=== PATIENT | male | born 1950 | race Caucasian/White ===

== ENCOUNTER 2020-08-17 16:51 | Inpatient (IN) | payer MEDICARE, MEDICAID, SELFPAY ==
[2020-08-17] VITALS (14 sets, daily range): BP systolic 116–214; BP diastolic 68–122; PULSE 83–130; RESP 18–30; TEMP 37.1–37.7; O2SAT 93–100; BMI 22.7; BMI 22.9
--- NOTE | 2020-08-17 | ECG_ITS ---
Test Reason : Hypotension Blood Pressure : / mmHG Vent. Rate : 074 BPM Atrial Rate : 074 BPM P-R Int : 152 ms QRS Dur : 094 ms QT Int : 468 ms P-R-T Axes : 029 004 101 degrees QTc Int : 519 ms Normal sinus rhythm ST & T wave abnormality, consider anterolateral ischemia Prolonged QT Abnormal ECG When compared with ECG of [id number] Normal sinus rhythm has replaced Wide QRS tachycardia ST depression in Inferior leads Lateral leads is new Referred By: Joel Hanson Electronically Signed By:DOMINGA DELGADO MD
--- NOTE | 2020-08-17 17:16 | XR_ITS ---
EXAMINATION: XR CHEST CLINICAL INFORMATION: Pulmonary edema, hypoxia and missed dialysis COMPARISON: CT chest 06/13/2020 TECHNIQUE: Frontal view of the chest was obtained. FINDINGS: The lungs are expanded with diffuse increased vascular markings. No focal consolidation seen. Suspect bilateral small pleural effusions. Heart size is mildly enlarged. There are several right subclavian and axillary stents. No gross bony abnormality seen. XR/XR chest 1V IMPRESSION: Cardiomegaly with diffuse increased vascularity likely moderate pulmonary vascular congestion. Interstitial pneumonitis is not excluded.
[2020-08-17 17:49] LABS: MANUAL DIFF FLAG NO
[2020-08-17 17:53] LABS: Basophils Percent Auto 0.5 % (0-2); Eosinophils Percent Auto 0.3 % (0-4); Hematocrit 36.4 % (42-52); Imm Gran Abs Auto 0.01 X10*3/uL (0.00-0.03); Imm Gran Pct Auto 0.1 % (0.0-0.4); Lymphocytes Percent Auto 13.6 % (20-40); Mean Corpuscular Hemoglobin 31.1 pg (27.0-33.0); Mean Corpuscular Volume 94.3 fL (80-98); Monocytes Absolute Auto 0.3 X10*3/uL (0.1-1.2); Monocytes Percent Auto 3.7 % (2-11); Neutrophils Absolute Auto 6.3 X10*3/uL (2.0-8.3); Neutrophils Percent Auto 81.8 % (45-73); Platelet Count 153 X10*3/uL (160-400); Red Blood Count 3.86 X10*6/uL (4.60-5.80); Red Cell Distribution Width 13.2 % (11.0-16.0); White Blood Count 7.7 X10*3/uL (4.8-10.8)
[2020-08-17] MEDS: Nitroglycerin 2 % Oint 1 GM Packet 1 INCH TRANSDERMA (18:25)
[2020-08-17 18:31] LABS: Troponin-I High Sensitivity 78.4 ng/L (<3.5-35.0)
[2020-08-17 18:36] LABS: Lactic Acid 2.5 mmol/L (0.5-2.0)
--- NOTE | 2020-08-17 18:49 | PC.NURSE ---
report taken from zo kearney. nitrodrip titrated to 40mcg at this time. bp 191/110 MAP 130.
--- NOTE | 2020-08-17 19:07 | PC.NURSE ---
nitro drip increased to 60mcg/min with map 134 per protocol. covid swab obtained. plan at this time to await bedassignement to send to dialysis
[2020-08-17 19:58] LABS: Alanine Aminotransferase 39 U/L (0-40); Albumin Level 3.8 g/dL (3.5-5.0); Alkaline Phosphatase 214 U/L (39-117); Anion Gap 32 (12-20); Aspartate Amino Transferase 38 U/L (5-37); Bilirubin Direct 0.7 mg/dL (0.0-0.5); Bilirubin Total 1.2 mg/dL (0.0-1.0); Blood Urea Nitrogen 116 mg/dL (9-16); Calcium 8.9 mg/dL (8.4-10.2); Carbon Dioxide 21 mmol/L (22-29); Chloride 97 mmol/L (96-108); Creatinine Clr Calc Pharmacy 5.4; Estimated Glomerular Filt Rate 4; Glucose Random 73 mg/dL (60-115); Potassium 7.1 mmol/l (3.3-5.1); Sodium 143 mmol/L (135-145); Total Protein 7.2 g/dL (6.5-8.0)
--- NOTE | 2020-08-17 20:10 | PC.NURSE ---
room assignment 254, contact make to re[facility] dialysis nurse [phone]
[2020-08-17 20:19] LABS: COVID-19 Test Negative (Negative); IDNOW Serial# 9DD0AD1C
[2020-08-17 20:19] LABS: Reflex Lactate? Lactic Acid Added
--- NOTE | 2020-08-17 20:35 | ED.GENADULT ---
HPI - General Adult General Chief complaint: Abdominal Pain Stated complaint: missed dialysis, not feeling well, fever Time Seen by Provider: 08/17/20 17:05 Source: EMS Mode of arrival: EMS Limitations: other ( shortness of breath) History of Present Illness HPI narrative: patient came to emergency room for shortness of breath and altered mental status. Patient was unable to give any history. I discussed the patient with her healthcare proxy who is a friend, states that the patient's skip dialysis on Tuesday, states that every time he skips dialysis he gets short of breath and encephalopathic. complaint: Pulmonary edema Related Data Allergies Allergy/AdvReac Type Severity Reaction Status Date / Time No Known Allergies Allergy Mild NA Unverified 06/05/20 16:52 ibuprofen Allergy Unknown Verified 04/04/20 00:00 Review of Systems Review of Systems: Yes Unobtainable due to mental condition PMFSH Past Medical History Medical History Cholelithiasis End stage renal disease Hypercholesteremia Thoracotomy scar of right chest Surgical History S/P thoracotomy Social History Social History (Updated 08/17/20 @ 21:34 by Joel Hanson) Alcohol intake: never Smoking Status: Current every day smoker Packs Per Day: 1 Physical Exam Vital Signs: Vital Signs: Last Vital Signs Temp 98.3 F 08/18/20 00:00 Pulse 88 08/18/20 01:00 Resp 17 08/18/20 01:00 BP 173/89 H 08/18/20 01:00 Pulse Ox 93 08/18/20 01:00 Body Mass Index 22.9 Appearance: awake, in moderate distress, encephalopathic, limited answers Eyes: Pupils equal, round and reactive to light. ENT: Pharynx normal. Neck: Normal inspection. Neck supple. No lymph nodes noted. No crepitus CVS: Normal heart rate and rhythm. Pulses normal. Normal S1 and S2, positive JVD right-sided Respiratory: patient has moderate respiratory distress, oxygen saturation 79% on room air Abdomen: Soft and nontender. No rigidity. No distention. good BS x4 Skin: Skin warm and dry. Extremities: +2 pitting edema No Rash Neuro: Oriented X 2. No motor deficit. No sensory deficit. Moving all extermities. Course Course Course Narrative: patient skip dialysis, patient is encephalopathic, has shortness of breath. Patient was given nitro paste and put in a nitro drip to control the blood pressure which was initially 214/122. Before getting any labs I discussed the patient with Nephrology on-call for Dr. Montez, at dialysis nurse will be coming to the hospital to start dialysis once the patient has a bed assignment. Patient was admitted to the intensive care unit by Dr. lucas neville given that he is still on BiPAP and has severe hypertension. Patient was put on BiPAP, patient's oxygen saturation 100%, blood pressure improved to 116/68. Patient breathing comfortably on BiPAP, heart rate 83. Medical Decision Making Lab Data Result diagrams: 08/17/20 17:41 08/17/20 19:04 Labs: Lab Results 08/17/20 08/17/20 08/17/20 Range/Units 17:41 17:41 17:41 WBC 7.7 (4.8-10.8) X10*3/uL RBC 3.86 L (4.60-5.80) X10*6/uL Hgb 12.0 L (14.0-18.0) g/dl Hct 36.4 L (42-52) % MCV 94.3 (80-98) fL MCH 31.1 (27.0-33.0) pg MCHC 33.0 (31.0-36.0) g/dl RDW 13.2 (11.0-16.0) % Plt Count 153 L (160-400) X10*3/uL MPV 12.0 (9.4-12.4) fL Immature Gran % (Auto) 0.1 (0.0-0.4) % Neut % (Auto) 81.8 H (45-73) % Lymph % (Auto) 13.6 L (20-40) % [place] % (Auto) 3.7 (2-11) % Eos % (Auto) 0.3 (0-4) % Baso % (Auto) 0.5 (0-2) % Lymph # (Auto) 1.0 L (1.2-4.9) X10*3/uL [place] # (Auto) 0.3 (0.1-1.2) X10*3/uL Eos # (Auto) 0.0 (0.0-0.4) X10*3/uL Baso # (Auto) 0.0 (0.0-0.2) X10*3/uL Abs Immat Gran (auto) 0.01 (0.00-0.03) X10*3/uL Absolute Neuts (auto) 6.3 (2.0-8.3) X10*3/uL Absolute Nucleated RBC 0.000 (0.0-0.012) X10*3/uL Nucleated RBC % (auto) 0.0 (0.0-0.2) /100WBC Sodium Cancelled Potassium Cancelled Chloride Cancelled Carbon Dioxide Cancelled Anion Gap Cancelled BUN Cancelled Creatinine Cancelled Estim Creat Clear Calc Cancelled Estimated GFR Cancelled Random Glucose Cancelled Lactic Acid (0.5-2.0) mmol/L Calcium Cancelled Total Bilirubin (0.0-1.0) mg/dL Direct Bilirubin (0.0-0.5) mg/dL AST (5-37) U/L ALT (0-40) U/L Alkaline Phosphatase (39-117) U/L Troponin I High Sens 78.4 H (<3.5-35.0) ng/L Total Protein (6.5-8.0) g/dL Albumin (3.5-5.0) g/dL COVID-19 (WILL) (Negative) COVID-19 Clin Com 08/17/20 08/17/20 08/17/20 Range/Units 18:14 19:04 19:04 WBC (4.8-10.8) X10*3/uL RBC (4.60-5.80) X10*6/uL Hgb (14.0-18.0) g/dl Hct (42-52) % MCV (80-98) fL MCH (27.0-33.0) pg MCHC (31.0-36.0) g/dl RDW (11.0-16.0) % Plt Count (160-400) X10*3/uL MPV (9.4-12.4) fL Immature Gran % (Auto) (0.0-0.4) % Neut % (Auto) (45-73) % Lymph % (Auto) (20-40) % [place] % (Auto) (2-11) % Eos % (Auto) (0-4) % Baso % (Auto) (0-2) % Lymph # (Auto) (1.2-4.9) X10*3/uL [place] # (Auto) (0.1-1.2) X10*3/uL Eos # (Auto) (0.0-0.4) X10*3/uL Baso # (Auto) (0.0-0.2) X10*3/uL Abs Immat Gran (auto) (0.00-0.03) X10*3/uL Absolute Neuts (auto) (2.0-8.3) X10*3/uL Absolute Nucleated RBC (0.0-0.012) X10*3/uL Nucleated RBC % (auto) (0.0-0.2) /100WBC Sodium 143 Potassium 7.1 H* Chloride 97 Carbon Dioxide 21 L Anion Gap 32 H BUN 116 H* Creatinine 11.29 H* Estim Creat Clear Calc 5.4 Estimated GFR 4 Random Glucose 73 Lactic Acid 2.5 H* (0.5-2.0) mmol/L Calcium 8.9 Total Bilirubin 1.2 H (0.0-1.0) mg/dL Direct Bilirubin 0.7 H (0.0-0.5) mg/dL AST 38 H (5-37) U/L ALT 39 (0-40) U/L Alkaline Phosphatase 214 H (39-117) U/L Troponin I High Sens (<3.5-35.0) ng/L Total Protein 7.2 (6.5-8.0) g/dL Albumin 3.8 (3.5-5.0) g/dL COVID-19 (WILL) Negative (Negative) COVID-19 Clin Com See Note ECG Data Attestation: I personally reviewed and interpreted this ECG as follows: ( heart rate 126, wide QRS tachycardia, nonspecific interventricular block, no ST segment depression or elevation) Critical Care Time Critical Care Time Total Critical Care Time: 90 Discharge Plan Discharge Clinical Impression: Acute lung edema CHF (congestive heart failure) Qualifiers: Heart failure type: other Qualified Code(s): I50.9 - Heart failure, unspecified Patient Disposition: Admitted As Inpatient Interventions: Admission Worksheet (ED) Last Done: 08/17/20 20:48 Discharge Date/Time: 08/17/20 21:00
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
[2020-08-17] MEDS: Nitroglycerin/D5W 100 MG/250 ML INFUS..BTL 9 MG IVCONT (21:20)
[2020-08-17 22:41] LABS: ~Lactic Acid-LAB USE ONLY 2.3 mmol/L (0.5-2.0)
[2020-08-17] MEDS: 0.9 % Sodium Chloride Flush 3 ML SYRINGE IVFLUSH (22:56)
[2020-08-18] VITALS (27 sets, daily range): BP systolic 115–204; BP diastolic 47–99; PULSE 65–89; RESP 12–25; TEMP 36.4–37.3; O2SAT 90–100; BMI 22.1
[2020-08-18 00:12] LABS: Reflex Lactate? 2 Y
[2020-08-18] MEDS: Piperacillin Sodium/Tazobactam 2.25 GM in 0.9 % Sodium Chloride 50 ML IV (00:21)
[2020-08-18] MEDS: Albumin Human 25 % 100 ML IV (00:21)
[2020-08-18] MEDS: Aspirin 300 MG SUPP.RECT PR (00:23)
[2020-08-18] MEDS: Phenylephrine HCL 20 MG in 0.9 % Sodium Chloride 250 ML 24.38 MG IVCONT (00:24)
[2020-08-18] MEDS: vancomycin HCL 1,000 MG in 0.9 % Sodium Chloride 250 ML 270 MG IV (00:43)
[2020-08-18 01:25] LABS: Anion Gap 32 (12-20); Blood Urea Nitrogen 46 mg/dL (9-16); Calcium 9.4 mg/dL (8.4-10.2); Carbon Dioxide 19 mmol/L (22-29); Chloride 94 mmol/L (96-108); Creatinine Clr Calc Pharmacy 11.3; Estimated Glomerular Filt Rate 11; Glucose Random 85 mg/dL (60-115); Potassium 4.2 mmol/l (3.3-5.1); Sodium 141 mmol/L (135-145); ~Lactic Acid-LAB USE ONLY 2.3 mmol/L (0.5-2.0)
[2020-08-18 01:26] LABS: Troponin-I High Sensitivity 258.4 ng/L (<3.5-35.0)
--- NOTE | 2020-08-18 03:25 | PC.NURSE ---
Patient BP dropped to 71/36 map 65 during dialysis, lethargic but waking to voices. Provider at bedside to assess. Orders for josh-synephrine, drip started at 0.05 mcg/kg/min, albumin, vanco and zosyn. EKG obtained, trop, BC and BMP drawn. Pt BP 155/86, map 108. Josh-synephrine drip off after 15 minutes. Pt BP continues to remain stable will continue to monitor.
[2020-08-18] MEDS: Heparin Sodium,Porcine 5,000 UNIT/ML VIAL 5000 UNIT SUBCUT (05:21)
--- NOTE | 2020-08-18 06:00 | ECG_ITS ---
Test Reason : Elevated trop Blood Pressure : / mmHG Vent. Rate : 090 BPM Atrial Rate : 090 BPM P-R Int : 178 ms QRS Dur : 088 ms QT Int : 438 ms P-R-T Axes : 065 -22 083 degrees QTc Int : 535 ms Sinus rhythm with Premature atrial complexes Nonspecific ST and T wave abnormality Abnormal ECG When compared with ECG of [id number] ST less depressed in Inferior leads Lateral leads Heart rate has increased Referred By: Joel Hanson Electronically Signed By:DOMINGA DELGADO MD
[2020-08-18 06:05] LABS: MANUAL DIFF FLAG NO
[2020-08-18 06:06] LABS: Basophils Percent Auto 0.1 % (0-2); Eosinophils Percent Auto 0.1 % (0-4); Hematocrit 34.9 % (42-52); Hemoglobin 11.7 g/dl (14.0-18.0); Imm Gran Abs Auto 0.03 X10*3/uL (0.00-0.03); Imm Gran Pct Auto 0.4 % (0.0-0.4); Lymphocytes Absolute Auto 0.8 X10*3/uL (1.2-4.9); Lymphocytes Percent Auto 11.5 % (20-40); Mean Corpuscular HGB Conc 33.5 g/dl (31.0-36.0); Mean Corpuscular Hemoglobin 31.4 pg (27.0-33.0); Mean Corpuscular Volume 93.6 fL (80-98); Monocytes Absolute Auto 0.4 X10*3/uL (0.1-1.2); Monocytes Percent Auto 6.2 % (2-11); Neutrophils Absolute Auto 5.5 X10*3/uL (2.0-8.3); Neutrophils Percent Auto 81.7 % (45-73); Platelet Count 131 X10*3/uL (160-400); Red Blood Count 3.73 X10*6/uL (4.60-5.80); Red Cell Distribution Width 13.2 % (11.0-16.0); White Blood Count 6.8 X10*3/uL (4.8-10.8)
[2020-08-18 06:37] LABS: Alanine Aminotransferase 40 U/L (0-40); Albumin Level 4.1 g/dL (3.5-5.0); Alkaline Phosphatase 189 U/L (39-117); Anion Gap 29 (12-20); Aspartate Amino Transferase 44 U/L (5-37); Bilirubin Total 1.6 mg/dL (0.0-1.0); Blood Urea Nitrogen 62 mg/dL (9-16); Calcium 9.2 mg/dL (8.4-10.2); Carbon Dioxide 24 mmol/L (22-29); Chloride 94 mmol/L (96-108); Creatinine Clr Calc Pharmacy 8.5; Estimated Glomerular Filt Rate 8; Glucose Random 84 mg/dL (60-115); Magnesium 2.5 mg/dL (1.6-2.6); Sodium 142 mmol/L (135-145); Total Protein 7.5 g/dL (6.5-8.0); Troponin-I High Sensitivity 478.1 ng/L (<3.5-35.0)
[2020-08-18 07:04] LABS: Base Excess VBG 0.6 mmol/L; HCO3 VBG 25 mmol/L; PCO2 VBG 39 mmhg; PO2 VBG 57 mmhg; pH VBG 7.43 (7.32-7.43)
[2020-08-18 07:05] LABS: Blood Gas Serial # 5414; Oxygen Saturation VBG 88.2 %
--- NOTE | 2020-08-18 07:48 | PC.NURSE ---
Pt pulling at bipap at 0700. Pt was taken off of the bipap mask and placed on NC. Sats are being maintained in the mid-high 90s on 2 liters of o2 via NC.
[2020-08-18 08:37] LABS: Glucose, Whole Blood 76 mg/dL (60-115)
--- NOTE | 2020-08-18 10:10 | MHC.CM.PN ---
pt lives alone, he has a freind and step son that can help him if he needs it. this will likely include a ride home at [place]. pt is active c HD at [facility], [facility] [place]. he uses a cane c ambulation and has a scooter. pt denies the need for vna at [place]. dc plan is home c previous svcs. cm to cont. to follow.
--- NOTE | 2020-08-18 10:34 | MHC.CLN ---
RECOMMEND 2GM NA LOW K+, LOW PHOS DIET PER RENAL
--- NOTE | 2020-08-18 10:37 | PM.PNNEP ---
Subjective Subjective Date of Service: 08/18/20 Physical Exam Vital Signs: Vital Signs: Last Vital Signs Temp 97.5 F 08/18/20 07:59 Pulse 79 08/18/20 09:59 Resp 19 08/18/20 09:59 BP 186/63 H 08/18/20 09:59 Pulse Ox 98 08/18/20 09:59 reports feeling slightly better this AM , post urgent HD 4 L fluid removed oral dry mucosa decreased BSs on bases s1s2 abd soft nt ext No edema, LUE +AVF thrill minor bleed noted neuro awake Body Mass Index 22.1 Assessment & Plan Assessment and plan (1) Pulmonary edema: Problem details: 4 l fluid removed overnight after urgent HD, will plan for HD today continue remove fluids as tolerated Status: Acute (2) End stage renal disease: Problem details: HD today as above Status: Acute (3) Hyperkalemia: Problem details: resolved, K 5 today, will plan for HD as above Status: Acute Assessment and Plan: we discussed issues related to compliance as he continues to cut down treatments at outpt unit, he missed tuesday, he reports feeling down could benefit from psych eval ?major depression and benefit from addition of antidepressant keep Low Na low K diet resume outpt antiHTN meds carvedilol 12.5 mg PO BID, clonidine 0.1 mg PO TID, compliance likely issue consider a clonidine patch TTS2 wean off IV NTG, use hydralazine 10 mg IV q4 hrs prn for SBP>170 HD today, local care of AVF Time Spent With Patient Time: Total time spent is greater than 50% in coordination of care (as documented) at patient's floor/unit and/or counseling patient:
--- NOTE | 2020-08-18 12:36 | CONS_ITS ---
DATE OF SERVICE: 08/18/2020 REASON FOR CONSULTATION: Evaluation of end-stage kidney disease. REQUESTING PHYSICIAN: ICU team. HISTORY OF PRESENT ILLNESS: Mr. 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 Prior to that, his treatment had lasted only an hour and a half and he has been a frequent flyer to the hospital as a result of missing his treatments in cutting down his dialysis therapy. He showed up last night to the hospital after having increased shortness of breath, confused with a blood pressure of 214/122. He was admitted for urgent dialysis treatment as his chest x-ray showed flash pulmonary edema. He was put on a BiPAP and was able to be dialyzed with resultant 4 L of fluid removed. His EKG had shown heart rate of 126 per minute with wide-complex QRS, nonspecific intraventricular block, no ST-T wave changes. His potassium level was 7.1. His hemoglobin is 12.0 with a normal white count. Today, he is breathing very comfortable. Denies any specific complaints and he is presently on an IV nitroglycerin drip. His blood pressures have stayed around 160 - 180. He has not started on his regular oral agents yet. PAST MEDICAL HISTORY: 1. ESRD. 2. Hypertensive disorder, type 2 diabetes mellitus. 3. Hyperphosphatemia. Iron deficiency. Hyperparathyroidism. Anemia. Gastroesophageal reflux disease. 4. Diabetic neuropathy. 5. History of seizure disorder. OUTPATIENT MEDICATIONS: Keppra 200 mg on Tuesday, , Tuesday after dialysis, lisinopril 40 mg daily, gabapentin 100 mg 2 tablets twice a day, Megace 1 teaspoon daily, Cilostazol 100 mg twice daily, sevelamer 4 tablets 3 times a day with meals, pantoprazole 40 mg daily, lorazepam 0.5 mg daily at bedtime, Nephrocaps 1 capsule daily, isosorbide 30 mg daily, carvedilol 12.5 mg twice a day, clonidine 0.1 mg 3 times a day, Eliquis 2.5 mg twice daily, and Flonase Allergy 2 sprays daily. ALLERGIES: IBUPROFEN. SOCIAL HISTORY: Lives at home with his daughter. Reports history of smoking cigarettes in average half a pack a day for the past 50 years. No alcohol intake. FAMILY HISTORY: Noncontributory. REVIEW OF SYSTEMS: Presently, he denies any nausea, vomiting, diarrhea, abdominal pain, melena, headache, visual changes. Denies chest pain. His shortness of breath has improved significantly. Denies any hallucinations. Denies any cough, hemoptysis, or sputum production. Denies any contact with high-risk COVID contacts. Rest of the 10-point review of systems negative. PHYSICAL EXAMINATION: GENERAL: On physical evaluation, he is alert. VITAL SIGNS: His blood pressure is 186/63, heart rate of 79 per minute, oxygen saturation is 98% on nasal cannula, 2 L nasal cannula. HEENT: Oral moist mucosa. NECK: Reveals no jugular venous distention. LUNGS: Have decreased breath sounds bilaterally. HEART: S1, S2. No S3, no S4. No murmurs. ABDOMEN: Soft, nontender. Positive bowel sounds. EXTREMITIES: No ankle edema. Left upper extremity AV fistula with a positive thrill and positive bruit. NEUROLOGIC: Nonfocal. He is able to speak in full sentences. LABORATORY DATA: Chest x-ray, cardiomegaly with diffuse increased vascular congestion consistent with CHF. Cardiomegaly noted. His potassium on admission was 7.1, earlier this morning is down to 5.0. BUN 62, creatinine 7.1, normal white count, hemoglobin 11.7. IMPRESSION: Mr. 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 Unfortunately, he continues to miss his treatments and cut down his dialysis sessions, which has led him to worsening acute hypertension and acute pulmonary edema. Presently, he shows up with acute flash pulmonary edema, hyperkalemia, hypertensive disorder. RECOMMENDATIONS: He has received urgent dialysis. His hyperkalemia and fluid excess had improved. Presently, he remains in volume overload. His potassium is 5.0. We will go ahead and arrange for another treatment of dialysis today, 3 hours, 2 potassium bath. We will remove fluids as tolerated by blood pressure. I would suggest to restart his antihypertensive regimen, which consists of carvedilol 12.5 mg twice a day and clonidine 0.1 mg 3 times a day. Use hydralazine IV p.r.n. 10 - 20 mg IV q.4 hours for systolic blood pressure above 170. Wean off IV nitroglycerin. Low-sodium diet. Fluid restriction 1500 mL daily. Consider echocardiogram if persistent symptoms of dyspnea. I discussed importance of compliance. He admits that this has been a major challenge for him and he has been a bit depressed about dialysis, if he is showing persistent signs of depression, inability to consider a psychiatry consult antidepressant treatment. With your permission, we will continue to follow during hospital stay. MD HARDEEP Gilmore/[place] / [phone]
--- NOTE | 2020-08-18 13:25 | PC.NURSE ---
Goal per is start home meduications and wean off nitro drip. Pt is alert and oriented but drowsy and a poor historian. Family brought medications to lobby where I could see the names of medications. Unable to confirm last dose.
--- NOTE | 2020-08-18 17:34 | PC.NURSE ---
Pt's BP elevated for greater part of the shift on a nitro drip with plans to titrate off once home medications ordered/given. Med-rec complete and MD aware. Awaiting orders. BP during dialysis plunging to the 80s systolic. Pt reporting that he doesn't feel well and that he is dizzy. Nitro drip turned off. made aware and at bedside for evaluation. Dialysis nurse backed off of treatment with BP improving rapidly into the 1teens systolic and quickly into the 150s. Pt now resting comfortable in bed. Nitro drip remains off at this time. Continuing to assess BP trends.
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
--- NOTE | 2020-08-18 18:50 | PC.NURSE ---
BP labile on monitor reading very low and very high. Manual BP taken to right arm reading 180/86. MD aware of varying BP readings on the monitor. Pt's home medications ordered and plan to give po medications and trend BPs. Plan per to hold nitro drip at this time and reassess one hour after po medications are given.
[2020-08-18] MEDS: carvediloL 12.5 MG TABLET PO (18:57)
--- NOTE | 2020-08-18 23:12 | PC.NURSE ---
Shift eval: 7p-11p: Patient alert, vague, refusing to answer questions. Restless, incont of stool x3, then 1 assist to commode - had large BM, formed, brown. Patient then rested, cooperative. Oriented only to name. Resistant to taking medication - had application software engineer come and assist with education about medication, which assisted patient to take lisinopril. Patient denies pain. No resp issues noted, 02Sat 94-96 on room air. Bed alarm on for patient safety. Small skin tear to right lower arm - dressed w/ xeroform and dsd. Patient order to transfer from ICU to [facility], room 487-2. Report given to Eliz ASHER. Transferred to [facility] via bed at 2305, bed alarm left on for safety.
[2020-08-19] VITALS (9 sets, daily range): BP systolic 128–168; BP diastolic 61–82; PULSE 66–94; RESP 18; TEMP 36.4–36.9; O2SAT 96–98
[2020-08-19] MEDS: 0.9 % Sodium Chloride Flush 3 ML SYRINGE IVFLUSH ×4 (00:35→21:18)
[2020-08-19 07:17] LABS: Anion Gap 26 (12-20); B Type Natriuretic Peptide 2551 pg/mL (<100); Blood Urea Nitrogen 40 mg/dL (9-16); Calcium 9.3 mg/dL (8.4-10.2); Carbon Dioxide 20 mmol/L (22-29); Chloride 97 mmol/L (96-108); Creatinine Clr Calc Pharmacy 10.9; Estimated Glomerular Filt Rate 10; Glucose Random 69 mg/dL (60-115); Potassium 4.6 mmol/l (3.3-5.1); Sodium 138 mmol/L (135-145); Troponin-I High Sensitivity 230.9 ng/L (<3.5-35.0)
[2020-08-19] MEDS: cloNIDine HCL 0.1 MG TABLET PO ×3 (08:41→21:17)
[2020-08-19] MEDS: carvediloL 12.5 MG TABLET PO ×2 (08:41→21:17)
[2020-08-19] MEDS: Doxepin HCl 25 MG CAPSULE PO (08:41)
[2020-08-19] MEDS: lisinopriL 40 MG TABLET PO (08:42)
--- NOTE | 2020-08-19 13:20 | PM.PNNEP ---
Subjective Subjective Date of Service: 08/19/20 Interval history: pt looks better today no SOB BP improved Physical Exam Vital Signs: Vital Signs: Last Vital Signs Temp 97.6 F 08/19/20 11:36 Pulse 84 08/19/20 11:36 Resp 18 08/19/20 11:36 BP 168/82 H 08/19/20 11:36 Pulse Ox 98 08/19/20 11:36 Body Mass Index 22.1 oral moist mucosa lungs clear s1s2 ABD SOFT +BSs ext no edema Assessment & Plan Assessment and plan (1) End stage renal disease: Problem details: HD today as above Status: Acute (2) Pulmonary edema: Problem details: 4 l + 2.2 L yesterday Pulm edema has clinically resolved Status: Acute (3) Hyperkalemia: Problem details: resolved post HD Status: Acute Assessment and Plan: Plan for HD tomorrow if clinically stable can go home afterwards. Time Spent With Patient Time: Total time spent is greater than 50% in coordination of care (as documented) at patient's floor/unit and/or counseling patient:
--- NOTE | 2020-08-19 13:24 | HO.PM.IMPN ---
Subjective Subjective Date of Service: 08/19/20 Interval History: Seen in f/u for resp failure due to flui overload from missing dialysis. He had emergent dialysis in the ICU and is now better. Little weak this mrbrina ROS: no fever, no sob, no CP Physical Exam Vital Signs: Vital Signs: Last Vital Signs Temp 97.6 F 08/19/20 11:36 Pulse 84 08/19/20 11:36 Resp 18 08/19/20 11:36 BP 168/82 H 08/19/20 11:36 Pulse Ox 98 08/19/20 11:36 Body Mass Index 22.1 General: AO X 3, no acute distress Resp: CTA bilateral CVS: S1,S2,RRR GI: +BS, NT, no distention Skin: No rash Neuro: motor grossly intact Psych: appropriate affect Objective Data Current Medications Generic Name Dose Route Start Last Admin Trade Name Freq PRN Reason Stop Dose Admin Acetaminophen 650 mg 08/17/20 20:13 Acetaminophen 325 Mg Tablet PO Q6H PRN Pain, Mild (Pain Scale 1-3) Carvedilol 12.5 mg 08/19/20 09:00 08/19/20 08:41 Carvedilol 12.5 Mg Tablet PO 12.5 mg BID GERMAN Administration Protocol Clonidine HCl 0.1 mg 08/19/20 09:00 08/19/20 08:41 Clonidine Hcl 0.1 Mg Tablet PO 0.1 mg TID GERMAN Administration Protocol Doxepin HCl 25 mg 08/19/20 09:00 08/19/20 08:41 Doxepin Hcl 25 Mg Capsule PO 25 mg DAILY GERMAN Administration Lisinopril 40 mg 08/19/20 09:00 08/19/20 08:42 Lisinopril 40 Mg Tablet PO 40 mg DAILY [facility] Administration Protocol Sodium Chloride 3 ml 08/18/20 00:00 08/19/20 08:41 0.9 % Sodium Chloride Flush 3 Ml Syringe IVFLUSH 3 ml QSHIFT [facility] Administration Labs CBC & Chem 7: 08/18/20 05:34 08/19/20 05:17 Microbiology Microbiology Results: Microbiology 08/18/20 00:47 Blood - Venous Blood Culture - Preliminary No growth after 24 hours. 08/18/20 00:04 Blood - Venous Blood Culture - Preliminary No growth after 24 hours. 08/17/20 18:14 Blood - Arterial Blood Culture - Preliminary No growth after 24 hours. 08/17/20 18:14 Blood - Arterial Blood Culture - Preliminary No growth after 24 hours. Assessment and Plan (1) End stage renal disease: Problem details: HD today as above Status: Acute (2) Acute lung edema: Status: Acute (3) Hyperkalemia: Problem details: resolved post HD Status: Acute Assessment and Plan: Acute pummonary edema from fluid overlodad from missing HD ESRD HTN ?AFIB on Eliquis last prescribed last month plan: S/p emergent dialysis, hyperK corrected, restart home meds. Diaslysis tomorrow then discharge
[2020-08-20] VITALS (8 sets, daily range): BP systolic 105–149; BP diastolic 49–71; PULSE 65–68; RESP 18–20; TEMP 36.6–36.9; O2SAT 96–100
[2020-08-20] MEDS: Acetaminophen 325 MG TABLET 650 MG PO (08:43)
[2020-08-20] MEDS: cloNIDine HCL 0.1 MG TABLET PO (10:33)
[2020-08-20] MEDS: lisinopriL 40 MG TABLET PO (10:33)
[2020-08-20] MEDS: carvediloL 12.5 MG TABLET PO (10:34)
[2020-08-20] MEDS: Doxepin HCl 25 MG CAPSULE PO (10:34)
[2020-08-20] MEDS: 0.9 % Sodium Chloride Flush 3 ML SYRINGE IVFLUSH (10:34)
--- NOTE | 2020-08-20 11:14 | MHC.CM.PN ---
IMM 08/18/20 Male 70 DX Renal Failure HTN emergency. He is DC today to home. He will resume HD schedule @ [facility]. Pt arranged transport home.
--- NOTE | 2020-08-20 14:22 | PM.DS ---
DS: Providers Provider Date of admission: 08/17/20 20:13 Primary care physician: Cristino Suarez MD Consults: 08/19/20 09:54 Consult to Hospitalist Routine Consulting Provider: Jae Antoine Reason for consultation: icu transfer DS: Diagnosis Discharge Diagnosis (1) End stage renal disease: Problem details: HD today as above (2) Acute lung edema: Status: Resolved (3) Hyperkalemia: Status: Resolved Problem details: resolved post HD DS: Medications Discharge Medications Home Medications: Home Medications Medication Instructions Recorded Confirmed apixaban [Eliquis] 2.5 mg PO BID 08/18/20 carvedilol 12.5 mg PO BID 08/18/20 cephalexin 500 mg PO BID 08/18/20 cilostazol 100 mg PO BID 08/18/20 clonidine HCl 0.05 mg PO TID 08/18/20 doxepin 25 mg PO BEDTIME 08/18/20 gabapentin 100 mg PO BID 08/18/20 levetiracetam 250 mg PO 08/18/20 levetiracetam 500 mg PO 08/18/20 lisinopril 40 mg PO DAILY 08/18/20 pantoprazole 40 mg PO DAILY 08/18/20 sevelamer carbonate [Renvela] 3,200 mg PO 08/18/20 trazodone 100 mg PO BEDTIME 08/18/20 DS: Summary Hospital Course Hospital Course: 70-year-old male with end-stage renal disease on hemodialysis Tuesday unfortunately he is not very compliant and skips dialysis all the time he presented to the emergency room with acute pulmonary edema related toward noncompliant with dialysis associated with hyperkalemia. He was admitted through the ICU for emergent dialysis for correction of the hyperkalemia and in the pulmonary edema. His symptoms improved and was subsequently transferred to the medical floor where he has continued to be doing well and he was dialyzed earlier today and I have discussed with the Nephrology is in the plan is to discharge him home and to follow up with primary care physician and that to follow up with dialysis as usual. Status at Discharge Functional status at discharge: independent ambulation Time Spent with Patient Time attestation: Total time spent providing and/or coordinating discharge services: Discharge coordination time: Greater than 30 minutes Physical Exam Vital Signs: Vital Signs: Last Vital Signs Temp 98.4 F 08/20/20 12:00 Pulse 68 08/20/20 12:00 Resp 20 08/20/20 12:00 BP 130/65 08/20/20 12:00 Pulse Ox 99 08/20/20 12:00 Body Mass Index 22.1 General: AO X 3, no acute distress Resp: CTA bilateral CVS: S1,S2,RRR GI: +BS, NT, no distention Skin: No rash Neuro: motor grossly intact Psych: appropriate affect DS: Data Data Completed and Pending Labs on day of discharge: Laboratory Last Values WBC 6.8 X10*3/uL (4.8-10.8) 08/18/20 05:34 RBC 3.73 X10*6/uL (4.60-5.80) L 08/18/20 05:34 Hgb 11.7 g/dl (14.0-18.0) L 08/18/20 05:34 Hct 34.9 % (42-52) L 08/18/20 05:34 MCV 93.6 fL (80-98) 08/18/20 05:34 MCH 31.4 pg (27.0-33.0) 08/18/20 05:34 MCHC 33.5 g/dl (31.0-36.0) 08/18/20 05:34 RDW 13.2 % (11.0-16.0) 08/18/20 05:34 Plt Count 131 X10*3/uL (160-400) L 08/18/20 05:34 MPV 12.0 fL (9.4-12.4) 08/18/20 05:34 Immature Gran % (Auto) 0.4 % (0.0-0.4) 08/18/20 05:34 Neut % (Auto) 81.7 % (45-73) H 08/18/20 05:34 Lymph % (Auto) 11.5 % (20-40) L 08/18/20 05:34 [place] % (Auto) 6.2 % (2-11) 08/18/20 05:34 Eos % (Auto) 0.1 % (0-4) 08/18/20 05:34 Baso % (Auto) 0.1 % (0-2) 08/18/20 05:34 Lymph # (Auto) 0.8 X10*3/uL (1.2-4.9) L 08/18/20 05:34 [place] # (Auto) 0.4 X10*3/uL (0.1-1.2) 08/18/20 05:34 Eos # (Auto) 0.0 X10*3/uL (0.0-0.4) 08/18/20 05:34 Baso # (Auto) 0.0 X10*3/uL (0.0-0.2) 08/18/20 05:34 Abs Immat Gran (auto) 0.03 X10*3/uL (0.00-0.03) 08/18/20 05:34 Absolute Neuts (auto) 5.5 X10*3/uL (2.0-8.3) 08/18/20 05:34 Absolute Nucleated RBC 0.000 X10*3/uL (0.0-0.012) 08/18/20 05:34 Nucleated RBC % (auto) 0.0 /100WBC (0.0-0.2) 08/18/20 05:34 VBG pH 7.43 (7.32-7.43) 08/18/20 06:47 VBG pCO2 39 mmhg 08/18/20 06:47 VBG pO2 57 mmhg 08/18/20 06:47 VBG HCO3 25 mmol/L 08/18/20 06:47 VBG O2 Saturation 88.2 % 08/18/20 06:47 VBG Base Excess 0.6 mmol/L 08/18/20 06:47 Sodium 138 mmol/L (135-145) 08/19/20 05:17 Potassium 4.6 mmol/l (3.3-5.1) 08/19/20 05:17 Chloride 97 mmol/L (96-108) 08/19/20 05:17 Carbon Dioxide 20 mmol/L (22-29) L 08/19/20 05:17 Anion Gap 26 (12-20) H 08/19/20 05:17 BUN 40 mg/dL (9-16) H 08/19/20 05:17 Creatinine 5.43 mg/dL (0.5-1.4) H* 08/19/20 05:17 Estim Creat Clear Calc 10.9 08/19/20 05:17 Estimated GFR 10 08/19/20 05:17 POC Glucose 76 mg/dL (60-115) 08/17/20 17:33 Random Glucose 69 mg/dL (60-115) 08/19/20 05:17 Lactic Acid 2.5 mmol/L (0.5-2.0) H* 08/17/20 18:14 Lactic Acid Fup @ 2Hr 2.3 mmol/L (0.5-2.0) H* 08/17/20 22:07 Lactic Acid Fup @ 4Hr 2.3 mmol/L (0.5-2.0) H* 08/18/20 00:47 Calcium 9.3 mg/dL (8.4-10.2) 08/19/20 05:17 Magnesium 2.5 mg/dL (1.6-2.6) 08/18/20 05:45 Total Bilirubin 1.6 mg/dL (0.0-1.0) H 08/18/20 05:45 Direct Bilirubin 0.7 mg/dL (0.0-0.5) H 08/17/20 19:04 AST 44 U/L (5-37) H 08/18/20 05:45 ALT 40 U/L (0-40) 08/18/20 05:45 Alkaline Phosphatase 189 U/L (39-117) H 08/18/20 05:45 Troponin I High Sens 230.9 ng/L (<3.5-35.0) H D 08/19/20 05:17 B-Natriuretic Peptide 2551 pg/mL (<100) H 08/19/20 05:17 Total Protein 7.5 g/dL (6.5-8.0) 08/18/20 05:45 Albumin 4.1 g/dL (3.5-5.0) 08/18/20 05:45 COVID-19 (WILL) Negative (Negative) 08/17/20 19:04 COVID-19 Clin Com See Note 08/17/20 19:04 Preliminary micro results at discharge 08/18/20 00:47 Blood Culture - Preliminary Blood - Venous No growth after 48 hours. 08/18/20 00:04 Blood Culture - Preliminary Blood - Venous No growth after 48 hours. 08/17/20 18:14 Blood Culture - Preliminary Blood - Arterial No growth after 48 hours. 08/17/20 18:14 Blood Culture - Preliminary Blood - Arterial No growth after 48 hours. Discharge Plan Discharge Anticipated Discharge Date/Time: 08/20/20 14:13 Patient Disposition: Home Health Service Referrals: [facility] [Other] (HD SCHEDULE CONTINUES NEXT DUE Tuesday08/22/2020) [facility] [Outside] Cristino Werner MD [Primary Care Provider] - Discharge Medications: Continued cilostazol 100 mg Tablet 100 mg PO BID RF: 0 clonidine HCl 0.1 mg Tablet 0.05 mg PO TID RF: 0 carvedilol 12.5 mg Tablet 12.5 mg PO BID RF: 0 doxepin 25 mg Capsule 25 mg PO BEDTIME RF: 0 levetiracetam 500 mg Tablet 500 mg PO RF: 0 levetiracetam 250 mg Tablet 250 mg PO RF: 0 trazodone 100 mg Tablet 100 mg PO BEDTIME RF: 0 cephalexin 500 mg Capsule 500 mg PO BID RF: 0 pantoprazole 40 mg Tablet,Delayed Release (Dr/Ec) 40 mg PO DAILY RF: 0 lisinopril 40 mg Tablet 40 mg PO DAILY RF: 0 gabapentin 100 mg Tablet 100 mg PO BID RF: 0 sevelamer carbonate [Renvela] 800 mg Tablet 3,200 mg PO RF: 0 Eliquis 2.5 mg Tablet 2.5 mg PO BID RF: 0 Discharge Orders: Discharge Order (Routine); Ordered 08/20/20 Ordered By: Jae Antoine Diet: advance to usual diet Activity on Discharge: As tolerated Discharge Date/Time: 08/20/20 16:40 Visit Report Forms: Patient Portal Discharge page Care Plan Goals: To resume regular schedule dialysis Health Concerns: ESRD and missing dialysis Plan of Treatment: Home and follow up with Dialysis as usual
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
== END 2020-08-20 16:40 | disposition home health service (06) | DRG 640 ==
LOC: HO.ED 20:37 → HO.ICU 20:45 → HO.IMC 08-18 22:45
PROVIDERS: Anesthesiology; Registered Nurse Community Health; Admitting Provider Internal Medicine Pulmonary Disease; Emergency Provider Emergency Medicine; PCP Internal Medicine; Visit Provider Internal Medicine
DX: E87.5 Hyperkalemia (principal); J96.01 Acute respiratory failure with hypoxia; N18.6 End stage renal disease; J81.1 Chronic pulmonary edema; I12.0 Hypertensive chronic kidney disease with stage 5 chronic kidney disease or end stage renal disease; I16.9 Hypertensive crisis, unspecified; E11.22 Type 2 diabetes mellitus with diabetic chronic kidney disease; F17.210 Nicotine dependence, cigarettes, uncomplicated; Z71.6 Tobacco abuse counseling; Z91.14 Patient's other noncompliance with medication regimen; Z20.828 Contact with and (suspected) exposure to other viral communicable diseases; Z99.2 Dependence on renal dialysis; Z91.15 Patient's noncompliance with renal dialysis; K21.9 Gastro-esophageal reflux disease without esophagitis; Z88.6 Allergy status to analgesic agent; Z79.01 Long term (current) use of anticoagulants; Z79.899 Other long term (current) drug therapy
CPT/HCPCS: 36415; 71045; 80048; 80053; 80076; 82803; 82947; 83605; 83735; 83880; 84484; 85025; 87040; 87635; 90999; 93005; 94660; 99232; 99285; 99291; 99292; J2370; J2543; J3370; P9047

== ENCOUNTER 2021-02-08 14:11 | Emergency (ER) | payer MEDICARE, MEDICAID, SELFPAY ==
[2021-02-08 14:45] VITALS: BP 200/118; PULSE 65; RESP 94; TEMP 37.3; O2SAT 94; BMI 48.3
--- NOTE | 2021-02-08 14:55 | ED.WOUNDLAC ---
HPI - Wound/Laceration General Chief Complaint: General Medical Stated Complaint: incision opened up after surgery Time Seen by Provider: 02/08/21 14:50 Source: patient and family Mode of arrival: ambulatory Limitations: no limitations History of Present Illness HPI narrative: 70 y/o male with history of ESRD on HD with recent LUE fistula revision/thrombectomy at [facility] on 02/06 who presents to the ED with bleeding fistula since last night. He restarted his Eliquis yesterday. He reports changing his dressing multiple times overnight. He has pain at the site. No dizziness, chest pain, lightheadedness. Onset (ago): day(s) Extremity Location: left: arm Place: home Patient tetanus UTD: Yes Context: other (recent surgery ) Associated symptoms: pain Treatments prior to arrival: bandage Related Data Home Medications Medication Instructions Recorded Confirmed Eliquis 2.5 mg PO BID 08/18/20 carvedilol 12.5 mg PO BID 08/18/20 cephalexin 500 mg PO BID 08/18/20 cilostazol 100 mg PO BID 08/18/20 clonidine HCl 0.05 mg PO TID 08/18/20 doxepin 25 mg PO BEDTIME 08/18/20 gabapentin 100 mg PO BID 08/18/20 levetiracetam 250 mg PO 08/18/20 levetiracetam 500 mg PO 08/18/20 lisinopril 40 mg PO DAILY 08/18/20 pantoprazole 40 mg PO DAILY 08/18/20 sevelamer carbonate [Renvela] 3,200 mg PO 08/18/20 trazodone 100 mg PO BEDTIME 08/18/20 Allergies Allergy/AdvReac Type Severity Reaction Status Date / Time No Known Allergies Allergy Mild NA Unverified 06/05/20 16:52 Review of Systems Review of Systems: Constitutional: No Fever, No Chills Cardiovascular: No Chest Pain, No SOB Respiratory: No Cough, No Sputum Gastrointestinal: No Nausea, No Vomiting Musculoskeletal: No joint pain, No Myalgias Skin: + Skin Lesions, No rash Neuro: No Weakness, No Numbness, No Dizziness, No Headache Heme/Lymph: + Bruising, No Lymphadenopathy Endocrine: No Polyuria, No Polydipsia PMFSH Past Medical History Attestation statement: The following information was validated with the patient. Medical History CHF (congestive heart failure) Cholelithiasis End stage renal disease End stage renal disease Hypercholesteremia Thoracotomy scar of right chest Surgical History S/P thoracotomy Social History Social History (Updated 08/17/20 @ 21:34 by Joel Hanson) Household Members: Unknown / Unable to assess Alcohol intake: never Smoking Status: Current every day smoker Packs Per Day: 1 Advance Directives: No Advance Directives Information Provided: Yes service: No Current occupational status: disabled Physical Exam Vital Signs: Vital Signs: Last Vital Signs Temp 99.1 F 02/08/21 14:45 Pulse 65 02/08/21 14:45 Resp 94 H 02/08/21 14:45 BP 168/80 H 02/08/21 15:07 Pulse Ox 94 02/08/21 14:45 Body Mass Index 48.3 Appearance: Alert. Oriented X3. No acute distress. HEENT: normal inspection CVS: Normal heart rate and rhythm. Pulses normal. Respiratory: No respiratory distress. Skin: Skin warm and dry. Normal skin color. Normal skin turgor. No rashes. Extremities: left upper arm with new surgical wound, active oozing from distal portion of the fistula, +thrill. +ecchymosis, NV intact distally. Neuro: Oriented X 3. No motor deficit. No sensory deficit. Course Course Course Narrative: Rapid medical examination: 70 y/o male with hx ESRD on HD T//Tue s/p LUE fistula revision/thrombectomy at [facility] on 02/06, restarted on Eliquis on 02/07 who presents with oozing from the surgical site that started last night. He changed the dressing several times overnight and has continued bleeding today. Dressings taken down and slight oozing at distal portion of the fistula. Dr. Salguero evaluated the patient briefly in triage - recommending d/w Surgeon at [facility]. Compressive dressing applied, reinforced with WAYNE wrap. BP elevated 200/110 initially, manual was 160/80. Reevaluation(s) Reevaluation #1: Spoke with Dr. Rosales, sanitation truck driver Communications Senior Associate from the group who follows the patient - given site is new and he is on anticoagulation he is recommending transfer to [facility] ER to be evaluated by surgery. Possible observation overnight. Transer line called. Reevaluation #2: Spoke with Dr. Martinez in the ED at [facility] who has accepted the patient. Critical Care Time Critical Care Time Critical Care Time: Yes Total Critical Care Time: 35 Attestation: I attest to critical care time spent caring for this patient - time spent reviewing records, coordinating care, and local wound care. Discharge Plan Discharge Clinical Impression: Hemorrhage of arteriovenous fistula Patient Disposition: [facility] Transfer Details: [facility] Additional Instructions: Transfer to [facility] for Surgical evaluation Prescriptions: No Action cilostazol 100 mg Tablet 100 mg PO BID RF: 0 clonidine HCl 0.1 mg Tablet 0.05 mg PO TID RF: 0 carvedilol 12.5 mg Tablet 12.5 mg PO BID RF: 0 doxepin 25 mg Capsule 25 mg PO BEDTIME RF: 0 levetiracetam 500 mg Tablet 500 mg PO RF: 0 levetiracetam 250 mg Tablet 250 mg PO RF: 0 trazodone 100 mg Tablet 100 mg PO BEDTIME RF: 0 cephalexin 500 mg Capsule 500 mg PO BID RF: 0 pantoprazole 40 mg Tablet,Delayed Release (Dr/Ec) 40 mg PO DAILY RF: 0 lisinopril 40 mg Tablet 40 mg PO DAILY RF: 0 gabapentin 100 mg Tablet 100 mg PO BID RF: 0 sevelamer carbonate [Renvela] 800 mg Tablet 3,200 mg PO RF: 0 Eliquis 2.5 mg Tablet 2.5 mg PO BID RF: 0
[2021-02-08 15:07] VITALS: BP 168/80
--- NOTE | 2021-02-08 15:38 | PC.NURSE ---
IV placed 18g in rt hand. per patient that is only place for blood draws due to multiple fistula placement. communications controller at bedside to confirm.
--- NOTE | 2021-02-08 15:45 | PC.NURSE ---
attempted to call report x 1 to [facility] er. no answer.
--- NOTE | 2021-02-08 15:48 | PC.NURSE ---
2nd attempt to give report to [place] rn. no answer.
== END 2021-02-08 15:58 | disposition short-term general hospital (02) ==
PROVIDERS: Emergency Provider Emergency Medicine
DX: T82.838A Hemorrhage due to vascular prosthetic devices, implants and grafts, initial encounter (principal); N18.6 End stage renal disease; M79.602 Pain in left arm; Y83.9 Surgical procedure, unspecified as the cause of abnormal reaction of the patient, or of later complication, without mention of misadventure at the time of the procedure; Y81.2 Prosthetic and other implants, materials and accessory general- and plastic-surgery devices associated with adverse incidents; F17.210 Nicotine dependence, cigarettes, uncomplicated; Z71.6 Tobacco abuse counseling; Z99.2 Dependence on renal dialysis; Z79.899 Other long term (current) drug therapy; Z79.01 Long term (current) use of anticoagulants
CPT/HCPCS: 99285; 99291

== ENCOUNTER 2021-03-31 21:03 | Emergency (ER) | payer MEDICARE, MEDICAID, SELFPAY ==
--- NOTE | ~2021-03-31 | XR_ITS ---
EXAMINATION: XR CHEST CLINICAL INFORMATION: Fluid overload. Pneumonia. COMPARISON: Multiple prior studies. Most recent chest exam August 17, 2020. TECHNIQUE: Frontal view of the chest was obtained. 9:51 PM FINDINGS: Cardiac size is mildly enlarged. There are vascular calcifications of aorta. Moderate central pulmonary vascular congestion with increased lung markings to the lung due to interstitial edema. Haziness at both lung bases due to bilateral pleural effusions, left larger in volume than right. Left basilar consolidation or atelectasis may be present as well. Vascular stent over the right axilla. Surgical clips in both the right and left axillary region. XR/XR chest 1V IMPRESSION: Moderate pulmonary vascular congestion with interstitial edema and bilateral pleural effusions.
[2021-03-31 21:15] VITALS: BP 203/86; PULSE 94; RESP 18; TEMP 36.8; O2SAT 86; BMI 22.6
--- NOTE | 2021-03-31 21:32 | PC.NURSE ---
PATIENT CAME IN [facility]IA [facility] ,PATIENT WAS CHANGE INTO HOSPITAL ATTIRE , PATIENT EKG WAS DONE ,POC, STRAIGHT CATHETER ,VITALS , PATIENT WAS HOOKED UP TO VACUUM CLEANER REPAIRER BY THIS PCT .
--- NOTE | 2021-03-31 21:41 | PC.NURSE ---
THIS PCT ATTEMPT TO STRAIGHT CATCH PATIENT ,PATIENT BECAME UNCOOPERATIVE AND PULLED OUT CATHETER CATHETER IS BEING INSERTED ,RN AWARE
--- NOTE | 2021-03-31 21:41 | PC.NURSE ---
PT TO ED VIA AMBULANCE AFTER MISSING DIALYSIS TODAY. PT HAS BEEN REFUSING TAKING MEDS. PT ALERT AND REFUSING TO ANSWER QUESTIONS OR FOLLOW SIMPLE COMMANDS. PT ABLE TO UNDERSTAND SOME URDU. PT ALERT, RESPIRATIONS EASY, N/L. SKIN W/D. PT C/O PAIN TO BACK OF NECK AREA. PT DENIES NAUSEA AT THIS TIME. PT ON MONITOR, EKG OBTAINED. WILL AWAIT FOR MD'S EVAL.
--- NOTE | 2021-03-31 21:53 | ECG_ITS ---
Test Reason : HIGH BLOOD PRESSURE Blood Pressure : / mmHG Vent. Rate : 085 BPM Atrial Rate : 085 BPM P-R Int : 228 ms QRS Dur : 100 ms QT Int : 420 ms P-R-T Axes : 055 -40 073 degrees QTc Int : 499 ms Sinus rhythm with 1st degree A-V block Possible Left atrial enlargement Left axis deviation Nonspecific ST abnormality Prolonged QT Abnormal ECG When compared with ECG of 18-AUG-2020 06:16, Premature atrial complexes are no longer Present ME interval has increased Nonspecific T wave abnormality, improved in Anterolateral leads Referred By: Robert Szymanski Electronically Signed By:J Luis Wells
[2021-03-31 21:56] LABS: Glucose, Whole Blood 73 mg/dL (60-115)
[2021-03-31 22:16] VITALS: BP 220/82; PULSE 91
[2021-03-31] MEDS: Nitroglycerin 2 % Oint 1 GM Packet 0.5 INCH TRANSDERMA (22:16)
[2021-03-31] MEDS: Furosemide 40 MG/4 ML VIAL IVPUSH (22:27)
--- NOTE | 2021-03-31 22:27 | PC.NURSE ---
PA IN ROOM, PT DIPS TO 89% ON RA, PT PLACED ON 2L NC WITH PO 99%. PT MEDICATED PER EMAR WITH NITRO PASTE AND LASIX. PT ON MONITOR WITH HR 87. PT IS A DIFFICULT STICK LABS BEING DRAWN AFTER IV PLACED PER BELL HURD. PA AWARE OF B/P.
[2021-03-31 22:30] VITALS: BP 224/103; PULSE 88; RESP 25; O2SAT 99
--- NOTE | 2021-03-31 22:55 | PC.NURSE ---
RESPIRATORY IN ROOM FOR BIPAP @ 35%. PT TRYING TO TAKE OFF MASK. PT IS CONSTANTLY REDIRECTED. PT REMAINS ON MONITOR WITH A HR 88. PO 100%. BP 215/86.
[2021-03-31 22:58] LABS: Basophils Percent Auto 0.2 % (0-2); Hematocrit 33.5 % (42-52); Hemoglobin 10.9 g/dl (14.0-18.0); Imm Gran Abs Auto 0.03 X10*3/uL (0.00-0.03); Imm Gran Pct Auto 0.3 % (0.0-0.4); Lymphocytes Absolute Auto 0.6 X10*3/uL (1.2-4.9); Lymphocytes Percent Auto 6.9 % (20-40); MANUAL DIFF FLAG NO; Mean Corpuscular HGB Conc 32.5 g/dl (31.0-36.0); Mean Corpuscular Volume 95.2 fL (80-98); Mean Platelet Volume 11.1 fL (9.4-12.4); Monocytes Absolute Auto 0.4 X10*3/uL (0.1-1.2); Monocytes Percent Auto 4.5 % (2-11); Neutrophils Absolute Auto 8.2 X10*3/uL (2.0-8.3); Neutrophils Percent Auto 88.1 % (45-73); Platelet Count 120 X10*3/uL (160-400); Red Blood Count 3.52 X10*6/uL (4.60-5.80); Red Cell Distribution Width 15.6 % (11.0-16.0); White Blood Count 9.3 X10*3/uL (4.8-10.8)
[2021-03-31 23:06] LABS: INTERNATIONAL NORM RATIO 1.3 (0.9-1.1); Prothrombin Time 14.7 SEC (9.9-13.0)
[2021-03-31 23:09] LABS: Partial Thromboplastin Time 38.2 SEC (24.1-38.0)
[2021-03-31 23:10] VITALS: PULSE 89; RESP 35; O2SAT 100
[2021-03-31 23:15] LABS: COVID-19 Test Negative (Negative); IDNOW Serial# 9DD0AD1C
[2021-03-31 23:18] LABS: Ammonia 35 umol/L (13-55)
[2021-03-31 23:46] LABS: Alanine Aminotransferase 21 U/L (0-40); Albumin Level 4.1 g/dL (3.5-5.0); Alkaline Phosphatase 121 U/L (39-117); Anion Gap 35 (12-20); Aspartate Amino Transferase 51 U/L (5-37); Bilirubin Total 2.1 mg/dL (0.0-1.0); Blood Urea Nitrogen 57 mg/dL (9-16); Calcium 9.5 mg/dL (8.4-10.2); Carbon Dioxide 18 mmol/L (22-29); Chloride 98 mmol/L (96-108); Creatinine Clr Calc Pharmacy 4.4; Estimated Glomerular Filt Rate 4; Glucose Random 71 mg/dL (60-115); Potassium 6.2 mmol/L (3.3-5.1); Sodium 145 mmol/L (135-145); Total Protein 7.4 g/dL (6.5-8.0)
[2021-03-31 23:48] VITALS: RESP 18
[2021-03-31] MEDS: Morphine Sulfate 4 MG/ML CARTRIDGE IVPUSH (23:48)
--- NOTE | 2021-03-31 23:49 | PC.NURSE ---
PT MEDICATED PER EMAR. PT PULLED OFF MASK, PULLED OFF MONITOR AND GOT OOB AND THERE WAS LARGE AMT OF FECAL ALL OVER THE FLOOR. PT WAS THEN RETURNED TO STRETCHER, MONITOR REATTACHED. BELL HURD AWARE.
[2021-03-31 23:56] LABS: Troponin-I High Sensitivity 275.6 ng/L (<3.5-35.0)
--- NOTE | 2021-03-31 23:56 | ED.GENADULT ---
HPI - General Adult General Chief complaint: General Medical Stated complaint: AMS Time Seen by Provider: 03/31/21 21:49 Source: patient Mode of arrival: ambulatory Limitations: no limitations History of Present Illness HPI narrative: Patient presents to ED for evaluation for altered mental status and missed dialysis. Patient himself admits to missing 2 episodes of dialysis. Patient is not compliant. Patient also states not taking hypertensive medication. Related Data Home Medications Medication Instructions Recorded Confirmed Eliquis 2.5 mg PO BID 08/18/20 carvedilol 12.5 mg PO BID 08/18/20 03/31/21 cilostazol 100 mg PO BID 08/18/20 clonidine HCl 0.05 mg PO TID 08/18/20 doxepin 25 mg PO BEDTIME 08/18/20 gabapentin 100 mg PO BID 08/18/20 levetiracetam 250 mg PO 08/18/20 levetiracetam 500 mg PO 08/18/20 lisinopril 40 mg PO DAILY 08/18/20 pantoprazole 40 mg PO DAILY 08/18/20 sevelamer carbonate [Renvela] 3,200 mg PO 08/18/20 trazodone 100 mg PO BEDTIME 08/18/20 Allergies Allergy/AdvReac Type Severity Reaction Status Date / Time No Known Allergies Allergy Mild NA Unverified 06/05/20 16:52 Review of Systems Review of Systems: Yes all other systems are reviewed and are negative Constitutional: Constitutional: Reports as per HPI and Reports no additional constitutional complaints Eyes: Eyes: Reports as per HPI and Reports no additional eye complaints ENT: Reports system reviewed and no additional complaints, except as documented and Reports as per HPI Cardiovascular: Cardiovascular: Reports as per HPI, Reports no additional cardiovascular complaints and Reports dyspnea Respiratory: Respiratory: Reports as per HPI, Reports no additional respiratory complaints and Reports dyspnea Gastrointestinal: Gastrointestinal: Reports as per HPI and Reports no additional gastrointestinal complaints Genitourinary: Genitourinary: Reports no additional male genitourinary complaints and Reports as per HPI Musculoskeletal: Musculoskeletal: Reports no additional musculoskeletal complaints and Reports as per HPI Neurologic: Reports system reviewed and no additional complaints, except as documented and Reports as per HPI [facility] Past Medical History Medical History CHF (congestive heart failure) Cholelithiasis End stage renal disease End stage renal disease Hypercholesteremia Thoracotomy scar of right chest Surgical History S/P thoracotomy Social History Social History (Updated 08/17/20 @ 21:34 by Joel Hanson) Household Members: Unknown / Unable to assess Unable to assess alcohol history related to: Unknown and Refusing to respond Alcohol intake: former Cigarette Packs Per Day: 1 Advance Directives: No service: No Current occupational status: disabled Physical Exam Vital Signs: Vital Signs: Last Vital Signs Temp 98.3 F 03/31/21 21:15 Pulse 93 04/01/21 01:38 Resp 30 H 04/01/21 00:45 BP 200/62 H 04/01/21 01:38 Pulse Ox 100 04/01/21 00:45 Body Mass Index 22.6 Const: General: cooperative, healthy appearing, comfortable and acute distress Orientation/consciousness: patient oriented x3 HENMT: Head: Yes normal to inspection, Yes No palpable skull fracture present, Yes normocephalic and Yes atraumatic Eyes: General: appearance normal, both eyes and all related structures Neck: Neck: Yes normal visual inspection, Yes full ROM, Yes no lymphadenopathy and Yes no meningeal signs Chest: Chest palpation & inspection: normal inspection of the chest and normal palpation of entire chest wall Resp: Effort & Inspection: normal respiratory effort and able to speak in complete sentences Auscultation: crackles and rales Cardio: Jugular venous distension: no JVD Heart sounds: S1 normal heart sound present and S2 normal heart sound present GI: Inspection: Yes normal to inspection and No abdominal wall ecchymosis Palpation (GI): Soft to palpation, not firm, nontender, no guarding and not rigid : General: No CVA tenderness and Yes no CVA tenderness Back/Spine/Pelvis: Back: no CVA tenderness, No CVA tenderness and No back tenderness Skin: General skin exam: no rashes or lesions noted and elasticity normal Neuro: General: patient oriented x3, gait normal, no meningeal signs and CN's II-XI intact bilaterally Cranial nerves: Yes CN's II-XII intact bilaterally Extrem: Other: Patient has function AV fistula in left upper extremity General: Yes normal to inspection and Yes full ROM Course Course Course Narrative: Patient will have medical evaluation. Patient will have Lasix ordered and nitro paste placed on chest. Likely patient will go to BiPAP Reevaluation(s) Reevaluation #1: Patient hypertensive still. Lasix and nitro paste given. Patient placed on BiPAP. Chest x-ray shows fluid overload. Time: 22:00 Reevaluation #2: During the ED visit patient became altered and removed the mask and proceeded to defecate on the floor. Patient had to be cleaned up and placed on the bed with soft wrist restraints. Patient placed on one-to-one. Patient given morphine and placed on BiPAP. ABG was ordered. Systolic blood pressure improved to 167. Patient came to himself and now alert oriented x3 Time: 23:37 Reevaluation #3: Bottom Bleacher on-call Dr. Montejo was contacted and he was informed of patient's history, physical exam, and diagnostics. He agrees patient needs emergent dialysis and recommends transfer to [facility] due to [facility] not having ICU bed available. He also recommends placing patient on nitroglycerin drip and proceed to give patient insulin, calcium gluconate, and D50. [facility] was contacted presently waiting for ICU attending Time: 01:25 Additional Reevaluation(s): Spoke with [facility] ICU fellow Dr. Al and she was informed of patient's history, physical exam, and diagnostics. She accepted the case for patient to be transfer to [facility] ICU for treatment which will consist of dialysis. Her supervising attending is Dr. Campos. Patient will be transferred to [facility]. 01:34 Medical Decision Making MDM Narrative Medical decision making narrative: Fluid overload. Renal failure. Lab Data Result diagrams: 03/31/21 22:49 03/31/21 22:49 Labs: Lab Results 03/31/21 03/31/21 03/31/21 Range/Units 21:29 22:49 22:49 WBC 9.3 (4.8-10.8) X10*3/uL RBC 3.52 L (4.60-5.80) X10*6/uL Hgb 10.9 L (14.0-18.0) g/dl Hct 33.5 L (42-52) % MCV 95.2 (80-98) fL MCH 31.0 (27.0-33.0) pg MCHC 32.5 (31.0-36.0) g/dl RDW 15.6 (11.0-16.0) % Plt Count 120 L (160-400) X10*3/uL MPV 11.1 (9.4-12.4) fL Immature Gran % (Auto) 0.3 (0.0-0.4) % Neut % (Auto) 88.1 H (45-73) % Lymph % (Auto) 6.9 L (20-40) % Republic % (Auto) 4.5 (2-11) % Eos % (Auto) 0.0 (0-4) % Baso % (Auto) 0.2 (0-2) % Lymph # (Auto) 0.6 L (1.2-4.9) X10*3/uL Republic # (Auto) 0.4 (0.1-1.2) X10*3/uL Eos # (Auto) 0.0 (0.0-0.4) X10*3/uL Baso # (Auto) 0.0 (0.0-0.2) X10*3/uL Abs Immat Gran (auto) 0.03 (0.00-0.03) X10*3/uL Absolute Neuts (auto) 8.2 (2.0-8.3) X10*3/uL Absolute Nucleated RBC 0.000 (0.0-0.012) X10*3/uL Nucleated RBC % (auto) 0.0 (0.0-0.2) /100WBC PT (9.9-13.0) SEC INR (0.9-1.1) APTT (24.1-38.0) SEC O2 Saturation % ABG pH at Pt Temp (7.35-7.45) ABG pH (Temp Correct) (7.35-7.45) ABG pCO2 at Pt Temp (32-45) mmHg ABG pCO2 (Temp Corrct (32-45) mmHg ABG pO2 at Pt Temp (83-108) mmHg ABG pO2 (Temp Correct (83-108) ABG HCO3 (22-26) mmol/L ABG Base Excess (Actual) mmol/L Sodium 145 (135-145) mmol/L Potassium 6.2 H* (3.3-5.1) mmol/L Chloride 98 (96-108) mmol/L Carbon Dioxide 18 L (22-29) mmol/L Anion Gap 35 H (12-20) BUN 57 H (9-16) mg/dL Creatinine 13.78 H* (0.5-1.4) mg/dL Estim Creat Clear Calc 4.4 Estimated GFR 4 POC Glucose 73 (60-115) mg/dL Random Glucose 71 (60-115) mg/dL Calcium 9.5 (8.4-10.2) mg/dL Total Bilirubin 2.1 H (0.0-1.0) mg/dL AST 51 H (5-37) U/L ALT 21 (0-40) U/L Alkaline Phosphatase 121 H D (39-117) U/L Ammonia (13-55) umol/L Troponin I High Sens (<3.5-35.0) ng/L B-Natriuretic Peptide (<100) pg/mL Total Protein 7.4 (6.5-8.0) g/dL Albumin 4.1 (3.5-5.0) g/dL COVID-19 (WILL) (Negative) COVID-19 Clin Com 03/31/21 03/31/21 03/31/21 Range/Units 22:49 22:49 22:49 WBC (4.8-10.8) X10*3/uL RBC (4.60-5.80) X10*6/uL Hgb (14.0-18.0) g/dl Hct (42-52) % MCV (80-98) fL MCH (27.0-33.0) pg MCHC (31.0-36.0) g/dl RDW (11.0-16.0) % Plt Count (160-400) X10*3/uL MPV (9.4-12.4) fL Immature Gran % (Auto) (0.0-0.4) % Neut % (Auto) (45-73) % Lymph % (Auto) (20-40) % Republic % (Auto) (2-11) % Eos % (Auto) (0-4) % Baso % (Auto) (0-2) % Lymph # (Auto) (1.2-4.9) X10*3/uL Republic # (Auto) (0.1-1.2) X10*3/uL Eos # (Auto) (0.0-0.4) X10*3/uL Baso # (Auto) (0.0-0.2) X10*3/uL Abs Immat Gran (auto) (0.00-0.03) X10*3/uL Absolute Neuts (auto) (2.0-8.3) X10*3/uL Absolute Nucleated RBC (0.0-0.012) X10*3/uL Nucleated RBC % (auto) (0.0-0.2) /100WBC PT 14.7 H (9.9-13.0) SEC INR 1.3 H (0.9-1.1) APTT 38.2 H (24.1-38.0) SEC O2 Saturation % ABG pH at Pt Temp (7.35-7.45) ABG pH (Temp Correct) (7.35-7.45) ABG pCO2 at Pt Temp (32-45) mmHg ABG pCO2 (Temp Corrct (32-45) mmHg ABG pO2 at Pt Temp (83-108) mmHg ABG pO2 (Temp Correct (83-108) ABG HCO3 (22-26) mmol/L ABG Base Excess (Actual) mmol/L Sodium (135-145) mmol/L Potassium (3.3-5.1) mmol/L Chloride (96-108) mmol/L Carbon Dioxide (22-29) mmol/L Anion Gap (12-20) BUN (9-16) mg/dL Creatinine (0.5-1.4) mg/dL Estim Creat Clear Calc Estimated GFR POC Glucose (60-115) mg/dL Random Glucose (60-115) mg/dL Calcium (8.4-10.2) mg/dL Total Bilirubin (0.0-1.0) mg/dL AST (5-37) U/L ALT (0-40) U/L Alkaline Phosphatase (39-117) U/L Ammonia 35 (13-55) umol/L Troponin I High Sens 275.6 H* (<3.5-35.0) ng/L B-Natriuretic Peptide 36589 H (<100) pg/mL Total Protein (6.5-8.0) g/dL Albumin (3.5-5.0) g/dL COVID-19 (WILL) (Negative) COVID-19 Clin Com 03/31/21 04/01/21 Range/Units 22:51 00:13 WBC (4.8-10.8) X10*3/uL RBC (4.60-5.80) X10*6/uL Hgb (14.0-18.0) g/dl Hct (42-52) % MCV (80-98) fL MCH (27.0-33.0) pg MCHC (31.0-36.0) g/dl RDW (11.0-16.0) % Plt Count (160-400) X10*3/uL MPV (9.4-12.4) fL Immature Gran % (Auto) (0.0-0.4) % Neut % (Auto) (45-73) % Lymph % (Auto) (20-40) % Republic % (Auto) (2-11) % Eos % (Auto) (0-4) % Baso % (Auto) (0-2) % Lymph # (Auto) (1.2-4.9) X10*3/uL Republic # (Auto) (0.1-1.2) X10*3/uL Eos # (Auto) (0.0-0.4) X10*3/uL Baso # (Auto) (0.0-0.2) X10*3/uL Abs Immat Gran (auto) (0.00-0.03) X10*3/uL Absolute Neuts (auto) (2.0-8.3) X10*3/uL Absolute Nucleated RBC (0.0-0.012) X10*3/uL Nucleated RBC % (auto) (0.0-0.2) /100WBC PT (9.9-13.0) SEC INR (0.9-1.1) APTT (24.1-38.0) SEC O2 Saturation 30.0 % ABG pH at Pt Temp 7.31 L (7.35-7.45) ABG pH (Temp Correct) 7.31 L (7.35-7.45) ABG pCO2 at Pt Temp 45 (32-45) mmHg ABG pCO2 (Temp Corrct 45 (32-45) mmHg ABG pO2 at Pt Temp 31 L* (83-108) mmHg ABG pO2 (Temp Correct 31 L* (83-108) ABG HCO3 23 (22-26) mmol/L ABG Base Excess (Actual) -2.7 mmol/L Sodium (135-145) mmol/L Potassium (3.3-5.1) mmol/L Chloride (96-108) mmol/L Carbon Dioxide (22-29) mmol/L Anion Gap (12-20) BUN (9-16) mg/dL Creatinine (0.5-1.4) mg/dL Estim Creat Clear Calc Estimated GFR POC Glucose (60-115) mg/dL Random Glucose (60-115) mg/dL Calcium (8.4-10.2) mg/dL Total Bilirubin (0.0-1.0) mg/dL AST (5-37) U/L ALT (0-40) U/L Alkaline Phosphatase (39-117) U/L Ammonia (13-55) umol/L Troponin I High Sens (<3.5-35.0) ng/L B-Natriuretic Peptide (<100) pg/mL Total Protein (6.5-8.0) g/dL Albumin (3.5-5.0) g/dL COVID-19 (WILL) Negative (Negative) COVID-19 Clin Com See Note ECG Data Interpretation: Sinus rhythm with first-degree AV block. Ventricular rate 85. Pr interval 228. QRS 100. QTC 499. Discharge Plan Discharge Clinical Impression: Renal failure, Fluid overload Patient Disposition: [facility] Hospital Transfer Details: [facility] Prescriptions: No Action cilostazol 100 mg Tablet 100 mg PO BID RF: 0 clonidine HCl 0.1 mg Tablet 0.05 mg PO TID RF: 0 carvedilol 12.5 mg Tablet 12.5 mg PO BID RF: 0 doxepin 25 mg Capsule 25 mg PO BEDTIME RF: 0 levetiracetam 500 mg Tablet 500 mg PO RF: 0 levetiracetam 250 mg Tablet 250 mg PO RF: 0 trazodone 100 mg Tablet 100 mg PO BEDTIME RF: 0 pantoprazole 40 mg Tablet,Delayed Release (Dr/Ec) 40 mg PO DAILY RF: 0 lisinopril 40 mg Tablet 40 mg PO DAILY RF: 0 gabapentin 100 mg Tablet 100 mg PO BID RF: 0 sevelamer carbonate [Renvela] 800 mg Tablet 3,200 mg PO RF: 0 Eliquis 2.5 mg Tablet 2.5 mg PO BID RF: 0
[2021-04-01] VITALS (13 sets, daily range): BP systolic 175–232; BP diastolic 62–92; PULSE 81–99; RESP 16–30; O2SAT 100
--- NOTE | 2021-04-01 | PC.NURSE ---
ABG COLLECTED BY RESPIRATORY.
[2021-04-01 00:07] LABS: B Type Natriuretic Peptide 18724 pg/mL (<100)
[2021-04-01] MEDS: ondansetron HCL 4 MG/2 ML VIAL IVPUSH (00:07)
[2021-04-01 00:20] LABS: ABG Base Excess -2.7 mmol/L; ABG HCO3 23 mmol/L (22-26); ABG pCO2 45 mmHg (32-45); ABG pCO2 TC 45 mmHg (32-45); ABG pH 7.31 (7.35-7.45); ABG pH TC 7.31 (7.35-7.45); ABG pO2 31 mmHg (83-108); ABG pO2 TC 31 (83-108)
[2021-04-01] MEDS: Insulin Regular, Human 100 UNIT/ML 3 ML VIAL 10 UNIT IVPUSH (01:18)
--- NOTE | 2021-04-01 01:21 | PC.NURSE ---
BS 63 PA AWARE.
[2021-04-01] MEDS: Calcium Gluconate/NaCl,Iso-Osm 2 GM/100 ML PLAST..BAG IV (01:32)
[2021-04-01] MEDS: Nitroglycerin/D5W 100 MG/250 ML INFUS..BTL IVCONT (01:38)
--- NOTE | 2021-04-01 01:39 | PC.NURSE ---
Per BELL Jones: medicate with 50gm of D50 via IVP. Hold additional 25gm of D50 IVP that was ordered; can use if pt becomes hypoglycemic s/p admin of 10units IV insulin. Q10M BGL POC being maintained. Per Micromedex, calcium gluconate and nitro in D5 are compatible to infuse together.
--- NOTE | 2021-04-01 01:55 | PC.NURSE ---
Per Robert LUU, do not give hydralazine IVP
--- NOTE | 2021-04-01 02:05 | PC.NURSE ---
TRANSPORT CONTACTED FOR TRANSPORT TO [facility]. NO CHG IN PT'S CONDITION.
--- NOTE | 2021-04-01 02:20 | PC.NURSE ---
[facility]S HERE FOR TRANSPORT, RESPIRATORY AT BEDSIDE TO CONVERT BIPAP FOR TRANSPORT.
--- NOTE | 2021-04-01 02:30 | PC.NURSE ---
ATTEMPTED TO PUT SOW CATH IN PLACE WITHOUT GETTING ANY URINE IN SOW TUBE. BELL HURD AWARE OF NO URINE AND WANTED SOW CATH TO BE REMOVED. SOW WAS REMOVED INTACT. PT TOLERATED PROCEDURE WELL.
[2021-04-01] MEDS: LORazepam 2 MG/ML VIAL 1 MG IVPUSH (02:39)
--- NOTE | 2021-04-01 02:45 | PC.NURSE ---
[facility] GIVEN IVP FOR TRANSPORT TO [facility]. NITRO DRIP INFUSING W/O DIFFICULTY @80 MEQ/MIN AND CALCIUM GLUC. @50ML/HR. PT REMAINS NS ON MONITOR WITH HR 93. LAST BS - 176. REPORT GIVEN TO LUCINA BOB. REPORT ALSO GIVEN TO LB MASTERS AT [facility]. PT LEFT ED IN NAD.
[2021-04-01 02:58] LABS: Glucose, Whole Blood 179 mg/dL (60-115)
[2021-04-01 02:58] LABS: Glucose, Whole Blood 176 mg/dL (60-115)
[2021-04-01 02:58] LABS: Glucose, Whole Blood 63 mg/dL (60-115)
[2021-04-01 02:58] LABS: Glucose, Whole Blood 192 mg/dL (60-115)
[2021-04-01 02:58] LABS: Glucose, Whole Blood 225 mg/dL (60-115)
[2021-04-01 02:58] LABS: Glucose, Whole Blood 210 mg/dL (60-115)
== END 2021-04-01 03:50 | disposition short-term general hospital (02) ==
PROVIDERS: Physician Assistant; Emergency Provider Emergency Medicine
DX: I13.2 Hypertensive heart and chronic kidney disease with heart failure and with stage 5 chronic kidney disease, or end stage renal disease (principal); I50.9 Heart failure, unspecified; N18.6 End stage renal disease; E87.70 Fluid overload, unspecified; Z99.2 Dependence on renal dialysis; Z91.14 Patient's other noncompliance with medication regimen; Z91.15 Patient's noncompliance with renal dialysis; Z20.822 Contact with and (suspected) exposure to COVID-19
CPT/HCPCS: 36415; 51701; 71045; 80053; 82140; 82803; 82947; 83880; 84484; 85025; 85610; 85730; 87635; 93005; 94660; 96365; 96366; 96374; 96375; 99285; 99291; J0610; J1940; J2060; J2270; J2405

== ENCOUNTER 2021-04-10 06:52 | Outpatient (REF) | payer SELFPAY ==
[2021-04-10 07:15] LABS: Hemoglobin 11.3 g/dl (14.0-18.0); Mean Corpuscular HGB Conc 33.2 g/dl (31.0-36.0); Mean Corpuscular Volume 93.4 fL (80-98); Mean Platelet Volume 10.9 fL (9.4-12.4); Platelet Count 206 X10*3/uL (160-400); Red Blood Count 3.64 X10*6/uL (4.60-5.80); White Blood Count 4.3 X10*3/uL (4.8-10.8)
[2021-04-10 08:14] LABS: Alanine Aminotransferase 21 U/L (0-40); Albumin Level 3.5 g/dL (3.5-5.0); Alkaline Phosphatase 93 U/L (39-117); Anion Gap 17 (12-20); Aspartate Amino Transferase 27 U/L (5-37); Bilirubin Total 0.8 mg/dL (0.0-1.0); Blood Urea Nitrogen 27 mg/dL (9-16); Calcium 9.7 mg/dL (8.4-10.2); Carbon Dioxide 26 mmol/L (22-29); Chloride 98 mmol/L (96-108); Estimated Glomerular Filt Rate 8; Glucose Random 92 mg/dL (60-115); Sodium 137 mmol/L (135-145); Total Protein 6.6 g/dL (6.5-8.0)
== END 2021-04-10 06:53 | disposition home or self-care (01) ==
LOC: HO.MMNH1L 06:52
PROVIDERS: Visit Provider Family Medicine
DX: I10 Essential (primary) hypertension (principal); Z99.2 Dependence on renal dialysis
CPT/HCPCS: 36415; 80053; 85027

== ENCOUNTER 2021-04-13 07:52 | Outpatient (REF) | payer SELFPAY ==
[2021-04-13 06:40] LABS: Hematocrit 32.9 % (42-52); Hemoglobin 10.7 g/dl (14.0-18.0); Mean Corpuscular HGB Conc 32.5 g/dl (31.0-36.0); Mean Corpuscular Hemoglobin 30.5 pg (27.0-33.0); Mean Corpuscular Volume 93.7 fL (80-98); Mean Platelet Volume 11.3 fL (9.4-12.4); Platelet Count 207 X10*3/uL (160-400); Red Blood Count 3.51 X10*6/uL (4.60-5.80); White Blood Count 4.5 X10*3/uL (4.8-10.8)
[2021-04-13 07:50] LABS: Anion Gap 19 (12-20); Blood Urea Nitrogen 28 mg/dL (9-16); Calcium 8.7 mg/dL (8.4-10.2); Carbon Dioxide 27 mmol/L (22-29); Chloride 97 mmol/L (96-108); Estimated Glomerular Filt Rate 6; Glucose Random 100 mg/dL (60-115); Potassium 4.1 mmol/L (3.3-5.1); Sodium 139 mmol/L (135-145)
== END 2021-04-13 07:53 | disposition home or self-care (01) ==
LOC: HO.MMNH1L 07:52
PROVIDERS: Visit Provider Family Medicine
DX: I10 Essential (primary) hypertension (principal); N18.6 End stage renal disease; Z99.2 Dependence on renal dialysis
CPT/HCPCS: 36415; 80048; 85027

== ENCOUNTER 2021-04-20 21:09 | Outpatient (REF) | payer MEDICARE, MEDICAID, SELFPAY | END 2021-04-20 21:10 | disposition home or self-care (01) | LOC: HO.MMNH1L 21:09 | PROVIDERS: Visit Provider Family Medicine | DX: Z13.89 Encounter for screening for other disorder (principal) ==

== ENCOUNTER 2021-04-27 00:08 | Outpatient (REF) | payer MEDICARE, MEDICAID, SELFPAY | END 2021-04-27 00:09 | disposition home or self-care (01) | LOC: HO.MMNH1L 00:08 | PROVIDERS: Visit Provider Family Medicine | DX: Z13.89 Encounter for screening for other disorder (principal) ==

== ENCOUNTER 2021-04-27 13:40 | Emergency (ER) | payer MEDICARE, MEDICAID, SELFPAY ==
[2021-04-27 14:10] VITALS: BP 121/36; PULSE 65; RESP 18; TEMP 36.8; O2SAT 92; BMI 20.9
--- NOTE | 2021-04-27 14:19 | ECG_ITS ---
Test Reason : FATIGUE Blood Pressure : / mmHG Vent. Rate : 063 BPM Atrial Rate : 063 BPM P-R Int : 180 ms QRS Dur : 096 ms QT Int : 440 ms P-R-T Axes : 042 -25 085 degrees QTc Int : 450 ms Normal sinus rhythm Nonspecific ST and T wave abnormality Abnormal ECG When compared with ECG of 31-MAR-2021 21:27, VT interval has decreased Referred By: Robert Szymanski Electronically Signed By:LUIS MURILLO MD
--- NOTE | 2021-04-27 14:20 | ED_ITS ---
HPI - Recheck/Abnormal Lab/Rx General Chief Complaint: Recheck/Abnormal Lab/Rx Stated Complaint: potassium level too high,rash breaking out/bleedin Time Seen by Provider: 04/27/21 14:19 Related Data Home Medications Medication Instructions Recorded Confirmed apixaban 2.5 mg tablet (Eliquis) 2.5 mg PO BID 08/18/20 carvedilol 12.5 mg tablet 12.5 mg PO BID 08/18/20 03/31/21 cilostazol 100 mg tablet 100 mg PO BID 08/18/20 clonidine HCl 0.1 mg tablet 0.05 mg PO TID 08/18/20 doxepin 25 mg capsule 25 mg PO BEDTIME 08/18/20 gabapentin 100 mg tablet 100 mg PO BID 08/18/20 levetiracetam 250 mg tablet 250 mg PO 08/18/20 levetiracetam 500 mg tablet 500 mg PO 08/18/20 lisinopril 40 mg tablet 40 mg PO DAILY 08/18/20 pantoprazole 40 mg tablet,delayed 40 mg PO DAILY 08/18/20 release sevelamer carbonate 800 mg tablet 3,200 mg PO 08/18/20 (Renvela) trazodone 100 mg tablet 100 mg PO BEDTIME 08/18/20 Allergies Allergy/AdvReac Type Severity Reaction Status Date / Time No Known Allergies Allergy Mild NA Verified 04/27/21 14:10 [facility] Past Medical History Medical History CHF (congestive heart failure) Cholelithiasis End stage renal disease End stage renal disease Hypercholesteremia Thoracotomy scar of right chest Surgical History S/P thoracotomy Social History Social History (Updated 08/17/20 @ 21:34 by Joel Hanson NP) Household Members: Unknown / Unable to assess Unable to assess alcohol history related to: Unknown and Refusing to respond Alcohol intake: former Cigarette Packs Per Day: 1 Advance Directives: No Advance Directives Information Provided: No service: No Current occupational status: disabled Physical Exam Vital Signs: Vital Signs: Last Vital Signs Temp 98.2 F 04/27/21 14:10 Pulse 65 04/27/21 14:10 Resp 18 04/27/21 14:10 BP 121/36 L 04/27/21 14:10 Pulse Ox 92 04/27/21 14:10 Body Mass Index 20.9 Course Course Course Narrative: Patient presents to the ED for evaluation hypkerlemia and itchy rash. patient states dialysis center called him for hyperkalemia and sent him prescription to remove excess potasium. patient also states itchy rash. Exam indicate bug bites and not scabies. labs and ekg ordered. Rapid medical screening. MDM - Recheck/Abnormal Lab/Rx Lab Data Result diagrams: 04/27/21 16:06 04/27/21 16:06 Labs: Lab Results 04/27/21 04/27/21 Range/Units 16:06 16:06 WBC 3.7 L (4.8-10.8) X10*3/uL RBC 3.27 L (4.60-5.80) X10*6/uL Hgb 10.1 L (14.0-18.0) g/dl Hct 31.1 L (42-52) % MCV 95.1 (80-98) fL MCH 30.9 (27.0-33.0) pg MCHC 32.5 (31.0-36.0) g/dl RDW 14.6 (11.0-16.0) % Plt Count 127 L D (160-400) X10*3/uL MPV 11.1 (9.4-12.4) fL Immature Gran % (Auto) 0.3 (0.0-0.4) % Neut % (Auto) 44.4 L (45-73) % Lymph % (Auto) 33.2 (20-40) % [place]ak[place] % (Auto) 7.2 (2-11) % Eos % (Auto) 14.4 H (0-4) % Baso % (Auto) 0.5 (0-2) % Lymph # (Auto) 1.2 (1.2-4.9) X10*3/uL [place] # (Auto) 0.3 (0.1-1.2) X10*3/uL Eos # (Auto) 0.5 H (0.0-0.4) X10*3/uL Baso # (Auto) 0.0 (0.0-0.2) X10*3/uL Abs Immat Gran (auto) 0.01 (0.00-0.03) X10*3/uL Absolute Neuts (auto) 1.7 L (2.0-8.3) X10*3/uL Absolute Nucleated RBC 0.000 (0.0-0.012) X10*3/uL Nucleated RBC % (auto) 0.0 (0.0-0.2) /100WBC Sodium 141 (135-145) mmol/L Potassium 5.3 H D (3.3-5.1) mmol/L Chloride 99 (96-108) mmol/L Carbon Dioxide 25 (22-29) mmol/L Anion Gap 22 H (12-20) BUN 28 H (9-16) mg/dL Creatinine 9.97 H* (0.5-1.4) mg/dL Estim Creat Clear Calc 5.6 Estimated GFR 5 Random Glucose 77 (60-115) mg/dL Calcium 8.0 L D (8.4-10.2) mg/dL Total Bilirubin 0.7 (0.0-1.0) mg/dL AST 25 (5-37) U/L ALT 18 (0-40) U/L Alkaline Phosphatase 97 (39-117) U/L Total Protein 7.2 (6.5-8.0) g/dL Albumin 3.9 (3.5-5.0) g/dL Discharge Plan Discharge Clinical Impression: Bed bug bite Patient Disposition: Left Without Being Seen Interventions: LWBS Worksheet Last Done: 04/27/21 20:41 Discharge Date/Time: 04/27/21 20:44
[2021-04-27 16:15] LABS: MANUAL DIFF FLAG NO
[2021-04-27 16:18] LABS: Basophils Percent Auto 0.5 % (0-2); Eosinophils Absolute Auto 0.5 X10*3/uL (0.0-0.4); Eosinophils Percent Auto 14.4 % (0-4); Hematocrit 31.1 % (42-52); Hemoglobin 10.1 g/dl (14.0-18.0); Imm Gran Abs Auto 0.01 X10*3/uL (0.00-0.03); Imm Gran Pct Auto 0.3 % (0.0-0.4); Lymphocytes Absolute Auto 1.2 X10*3/uL (1.2-4.9); Lymphocytes Percent Auto 33.2 % (20-40); Mean Corpuscular HGB Conc 32.5 g/dl (31.0-36.0); Mean Corpuscular Hemoglobin 30.9 pg (27.0-33.0); Mean Corpuscular Volume 95.1 fL (80-98); Mean Platelet Volume 11.1 fL (9.4-12.4); Monocytes Absolute Auto 0.3 X10*3/uL (0.1-1.2); Monocytes Percent Auto 7.2 % (2-11); Neutrophils Absolute Auto 1.7 X10*3/uL (2.0-8.3); Neutrophils Percent Auto 44.4 % (45-73); Platelet Count 127 X10*3/uL (160-400); Red Blood Count 3.27 X10*6/uL (4.60-5.80); Red Cell Distribution Width 14.6 % (11.0-16.0); White Blood Count 3.7 X10*3/uL (4.8-10.8)
[2021-04-27 16:55] LABS: Alanine Aminotransferase 18 U/L (0-40); Albumin Level 3.9 g/dL (3.5-5.0); Alkaline Phosphatase 97 U/L (39-117); Anion Gap 22 (12-20); Aspartate Amino Transferase 25 U/L (5-37); Bilirubin Total 0.7 mg/dL (0.0-1.0); Blood Urea Nitrogen 28 mg/dL (9-16); Carbon Dioxide 25 mmol/L (22-29); Chloride 99 mmol/L (96-108); Creatinine Clr Calc Pharmacy 5.6; Estimated Glomerular Filt Rate 5; Glucose Random 77 mg/dL (60-115); Potassium 5.3 mmol/L (3.3-5.1); Sodium 141 mmol/L (135-145); Total Protein 7.2 g/dL (6.5-8.0)
== END 2021-04-27 20:44 | disposition left against medical advice (07) ==
PROVIDERS: Physician Assistant; Emergency Provider Emergency Medicine
DX: T14.8XXA Other injury of unspecified body region, initial encounter (principal); R79.89 Other specified abnormal findings of blood chemistry; R21 Rash and other nonspecific skin eruption; W57.XXXA Bitten or stung by nonvenomous insect and other nonvenomous arthropods, initial encounter; Y93.9 Activity, unspecified; Y92.9 Unspecified place or not applicable; Y99.9 Unspecified external cause status; Z79.899 Other long term (current) drug therapy
CPT/HCPCS: 36415; 80053; 85025; 93005; 99283

== ENCOUNTER 2021-09-08 14:48 | Outpatient (REF) | payer MEDICARE, MEDICAID, SELFPAY ==
--- NOTE | ~2021-09-08 | XR_ITS ---
EXAMINATION: XR KNEE, LEFT CLINICAL INFORMATION: Left knee pain COMPARISON: None TECHNIQUE: Four views of the left knee. FINDINGS: Medial and lateral compartment joint spaces are maintained. There is patellar spurring. Limited evaluation of the patellofemoral joint space on the skyline view. The superior aspect of the patella appears be slightly rotated anteriorly. Moderate to large joint effusion. Prominent vascular calcification. No acute fracture seen. XR/XR knee LT 4V IMPRESSION: Patellofemoral joint arthritis, with patellar spurring. Limited evaluation of the patellofemoral joint space on the skyline view. Moderate to large effusion. No acute fracture is seen..
== END 2021-09-08 14:49 | disposition home or self-care (01) ==
LOC: HO.XRAY 14:48
PROVIDERS: PCP Physician Assistant; Visit Provider Internal Medicine
DX: M25.562 Pain in left knee (principal)
CPT/HCPCS: 73564

== ENCOUNTER → 2021-10-07 14:47 | Outpatient (BNVA) | payer MEDICARE, MEDICAID, SELFPAY | PROVIDERS: PCP Physician Assistant; Visit Provider Physician Assistant | DX: M17.12 Unilateral primary osteoarthritis, left knee (principal) | CPT/HCPCS: 20610; 99202; J1040 ==

== ENCOUNTER 2021-10-28 10:06 | Outpatient (REF) | payer MEDICARE, MEDICAID, SELFPAY ==
--- NOTE | ~2021-10-28 | US_ITS ---
EXAMINATION: US VENOUS ULTRASOUND WITH DOPPLER LOWER EXTREMITY, LEFT CLINICAL INFORMATION: Left leg pain and swelling COMPARISON: April 25, 2019 TECHNIQUE: Ultrasound of the deep veins is performed from the hip to the calf with compression sonography and color and pulse Doppler assessment. Spectral analysis with color-flow imaging is performed. FINDINGS: There is normal venous compression and respiratory variation and augmented flow. The visualized common femoral vein, superficial femoral vein, profunda femoral vein, popliteal vein, and the trifurcation region shows no evidence of deep venous thrombosis. There are some prominent left inguinal lymph nodes present Within the left popliteal fossa region medial aspect there is a 4.6 x 2.5 x 2.7 cm complex fluid collection present. Also about the anterior aspect of the left knee there is a large complex fluid collection that was too large to measure on this study. US/US venous duplex LE LT IMPRESSION: No acute DVT demonstrated in the left lower extremity. Anterior knee and popliteal fossa complex fluid collections
== END 2021-10-28 10:07 | disposition home or self-care (01) ==
LOC: HO.US 10:06
PROVIDERS: Visit Provider Emergency Medicine
DX: R60.0 Localized edema (principal); M79.605 Pain in left leg
CPT/HCPCS: 93971

== ENCOUNTER → 2021-10-30 10:40 | Outpatient (BNVA) | payer MEDICARE, MEDICAID, SELFPAY | PROVIDERS: PCP Physician Assistant; Visit Provider Orthopaedic Surgery | DX: M17.12 Unilateral primary osteoarthritis, left knee (principal); M25.0 Hemarthrosis; N18.6 End stage renal disease | CPT/HCPCS: 99212 ==

== ENCOUNTER 2022-02-11 04:30 | Inpatient (IN) | payer MEDICARE, MEDICAID, SELFPAY ==
[2022-02-11] VITALS (20 sets, daily range): BP systolic 88–138; BP diastolic 40–86; PULSE 56–70; RESP 14–23; TEMP 36–36.9; O2SAT 87–100; BMI 27.4
--- NOTE | ~2022-02-11 | CT_ITS ---
EXAMINATION: CT HEAD WITHOUT CONTRAST (STROKE PROTOCOL) INDICATION INFORMATION: Left facial left arm weakness, nonverbal COMPARISON: 07/20/2013 TECHNIQUE: Noncontrast CT of the head was performed. DLP: 711 mGy-cm DOSE LOWERING TECHNIQUES: This CT examination was performed using dose optimization techniques as appropriate, variously including the following: - Automated exposure control - Adjustment of mA and/or kV according to patient size (this includes techniques or standardized protocols for targeted exams were dose is matched to indication/reason for exam; i.e. extremities or head) - Use of iterative reconstruction technique FINDINGS: There is no evidence of acute intracranial hemorrhage or territorial infarction. No abnormal mass-effect or midline shift is seen. Baer to white matter differentiation is well preserved. No extra-axial fluid collections are identified. The ventricles are normal in size. There is mild periventricular white matter hypoattenuation consistent with chronic small vessel ischemic disease. Mild volume loss is noted. The osseous structures and soft tissues are normal. Left maxillary sinus mucus retention cyst noted. Partially opacified anterior left ethmoid air cells. The mastoid air cells are well-aerated. CT/CT head for stroke IMPRESSION: No acute intracranial findings identified. Chronic appearing changes as noted above. This critical result was discussed with Dr. Mims on 02/11/2022 5:01 AM, and it was ascertained that the content and urgency of the report was understood at the time of direct communication.
--- NOTE | ~2022-02-11 | CT_ITS ---
EXAMINATION: CT ABDOMEN AND PELVIS WITH CONTRAST CLINICAL INFORMATION: Ground emesis COMPARISON: 10/10/2019 TECHNIQUE: Multidetector volumetric images were obtained from the superior aspect of the liver through the pubic symphysis following administration of 75 mL of Omnipaque 350 intravenous contrast. Sagittal and coronal reformatted images were obtained on the technologist's workstation. Oral contrast: No This CT examination was performed using dose optimization techniques as appropriate, variously including the following: *Automated exposure control *Adjustment of mA and/or kV according to patient size (this includes techniques or standardized protocols for targeted exams where dose is matched to indication/reason for exam; i.e. extremities or head) *Use of iterative reconstruction technique DLP: 838 mGy-cm FINDINGS: LUNG BASES: Extensive left lower lobe opacification and partial right lower lobe opacification. Mild cardiomegaly. LIVER, GALLBLADDER, AND BILIARY TREE: Hepatic contour appears somewhat nodular. No focal hepatic abnormality identified. Patient is status post cholecystectomy. PANCREAS: Subtle focal hypoattenuation is noted in the proximal pancreas measuring approximately 1.4 cm as seen on image 32/87, not clearly present previously. SPLEEN: Unremarkable. ADRENAL GLANDS: Unremarkable. KIDNEYS AND URETERS: The kidneys are atrophic. Multiple bilateral hypoattenuating renal foci favor cysts; no follow-up recommended. There is extensive renal vascular calcification. No hydronephrosis bilaterally. BLADDER: Nearly empty and not adequately evaluated. GASTROINTESTINAL TRACT: There is a thick-walled appearance of the gastric antrum, suboptimally assessed in the setting of luminal collapse. Enteric tube terminates in the stomach. No evidence of bowel obstruction. Assessment for wall thickening in some segments of the colon is limited due to luminal collapse. There is nonspecific presacral stranding. No free air is seen. ABDOMINAL WALL: No significant hernia is appreciated. LYMPH NODES: Borderline enlarged left retroperitoneal lymph nodes are noted, nonspecific. VASCULAR: There is extensive vascular calcification. IVC filter is present. PELVIC VISCERA: Prostate gland appears mildly enlarged. OSSEOUS STRUCTURES: Diffuse osseous sclerosis, likely due to renal osteodystrophy. CT/CT abdomen pelvis w con IMPRESSION: 1. Thick-walled appearance of the gastric antrum which could be due to pathologic thickening from gastritis or malignancy, though assessment is suboptimal due to luminal collapse in this segment. 2. Extensive bibasilar pulmonary opacities; while at least some of this may be due to atelectasis, superimposed consolidation is also suspected which could be due to aspiration in the proper clinical setting. 3. Subtle focal hypoattenuation in the proximal pancreas measuring approximately 1.4 cm, for which a mass cannot be excluded. Further workup with MRI is advised. 4. Borderline enlarged left retroperitoneal lymph nodes, nonspecific and for which attention on follow-up is recommended. 5. Atrophic kidneys. Renal osteodystrophy.
--- NOTE | ~2022-02-11 | XR_ITS ---
EXAMINATION: XR CHEST CLINICAL INFORMATION: ET tube . TLC. OG-tube. COMPARISON: Chest radiograph dated 02/11/2022 TECHNIQUE: Frontal view of the chest was obtained. FINDINGS: ET tube terminates 4 cm from the logan. NG tube extends into the stomach and off the distal margin of the study. Right IJ central venous catheter tip terminates at the cavoatrial junction. Multiple EKG leads overlie the chest. Right axillary vascular stents are noted. Patchy areas of airspace consolidation of the left upper lobe and right lower lobe, more pronounced as compared to prior. Pulmonary venous congestion is suspected. Small left pleural effusion. No acute osseous findings. XR/XR chest 1V IMPRESSION: 1. ET tube terminates in good position, 4 cm from the logan. 2. Right IJ central venous catheter tip terminates at the cavoatrial junction. 3. OG tube tip terminates in the stomach. 4. Increased patchy bilateral airspace consolidation which may be due to pulmonary alveolar and interstitial edema. Multifocal pneumonia is also possible. 5. Small left pleural effusion.
--- NOTE | ~2022-02-11 | XR_ITS ---
EXAMINATION: XR ABDOMEN KUB CLINICAL INDICATION: Vomiting COMPARISON: None TECHNIQUE: AP view of the abdomen. FINDINGS: There is nonspecific moderate distention of the colon and small bowel probably an ileus. Surgical clips are seen in the upper abdomen as is an IVC filter. Vascular calcifications are noted. XR/XR KUB IMPRESSION: Probable ileus. Recommend follow-up
--- NOTE | ~2022-02-11 | US_ITS ---
EXAMINATION: US VENOUS WITH DOPPLER UPPER EXTREMITY, LEFT CLINICAL INFORMATION: Swelling left arm. COMPARISON: None TECHNIQUE: Ultrasound of the upper extremity is performed using compression sonography and color and pulse Doppler flow with assessment of augmentation of flow. There is also imaging and Doppler assessment of the jugular and subclavian veins. Spectral analysis with color-flow imaging is performed. FINDINGS: Exam limited. Patient has a fistula graft with bandages in the upper arm. The lower forearm and there is swelling. No evidence of deep vein thrombosis in the left internal jugular vein and left subclavian and left radial vein. Unable to visualized multiple left upper extremity veins including the left axillary, left brachial, cephalic, left ulnar veins. There is prominent vessels in the upper arm likely related to the patient's known fistula. US/US venous duplex UE LT IMPRESSION: Exam is limited. No DVT demonstrated in the visualized veins of the left upper extremity Left internal jugular, left subclavian and the left radial vein.
--- NOTE | ~2022-02-11 | XR_ITS ---
EXAMINATION: XR CHEST CLINICAL INFORMATION: Decreased oxygen saturation COMPARISON: 02/11/2022 5:57 AM TECHNIQUE: Frontal view of the chest was obtained. FINDINGS: Moderate cardiomegaly with slight distention of the pulmonary vessels and patchy bilateral interstitial infiltrates. No change. Right-sided stent graft overlies the right axilla. XR/XR chest 1V IMPRESSION: Patchy bilateral infiltrates and/or congestive change are again observed with no substantial change from the earlier study today.
--- NOTE | ~2022-02-11 | CT_ITS ---
EXAMINATION: CT HEAD WITHOUT CONTRAST CLINICAL INFORMATION: Unexplained coma. COMPARISON: CT head dated from 02/11/2022. TECHNIQUE: Contiguous axial imaging was performed from the skull base to vertex without intravenous administration of contrast. This CT examination was performed using dose optimization techniques as appropriate, variously including the following: *Automated exposure control *Adjustment of mA and/or kV according to patient size (this includes techniques or standardized protocols for targeted exams where dose is matched to indication/reason for exam; i.e. extremities or head) *Use of iterative reconstruction technique DLP: 722 mGy-cm FINDINGS: There is no evidence of acute intracranial hemorrhage or edematous territorial infarction. Scattered hypoattenuation in the periventricular and deep white matter are consistent with moderate microangiopathy. Baer-white matter differentiation is preserved. Proportional prominence of the ventricles and sulcal spaces. No evidence for obstructive hydrocephalus. No abnormal mass effect or midline shift. No extra-axial fluid collections. 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 No acute osseous or soft tissue abnormalities. Large mucus retention cyst on the left maxillary sinus. Partially imaged nasoenteric tube. CT/CT head/brain wo con IMPRESSION: No evidence of acute intracranial hemorrhage or edematous territorial infarction.
--- NOTE | ~2022-02-11 | XR_ITS ---
EXAMINATION: XR CHEST CLINICAL INFORMATION: Elevated white blood cell count and altered mental status COMPARISON: 03/31/2021 TECHNIQUE: Frontal view of the chest was obtained. FINDINGS: Lung volumes are symmetric. There is patchy retrocardiac opacity at the left lung base. There is mild diffuse interstitial prominence. No evidence of pneumothorax. Small left pleural effusion suspected. Cardiac size is within normal limits. Calcification is present at the aortic arch. Vascular stent overlies the right axilla. Left axillary clips are present. XR/XR chest 1V IMPRESSION: Patchy left basilar retrocardiac opacity which may be due to pneumonia or aspiration in the proper clinical setting. Small left pleural effusion suspected.
--- NOTE | 2022-02-11 04:32 | ED_ITS ---
HPI - Weakness General Chief complaint: Stroke Stated complaint: stroke Time Seen by Provider: 02/11/22 04:32 Source: EMS Mode of arrival: EMS Limitations: language barrier History of Present Illness HPI Narrative: By EMS patient went to bed at 10pm, at 2am he had vomitted and the noticed a left facial, left arm weakness, no speaking. Complaint: focal weakness Onset (ago): hour(s) Duration: constant Related Data Home Medications Medication Instructions Recorded Confirmed apixaban 2.5 mg tablet (Eliquis) 2.5 mg PO BID 08/18/20 carvedilol 12.5 mg tablet 12.5 mg PO BID 08/18/20 03/31/21 cilostazol 100 mg tablet 100 mg PO BID 08/18/20 clonidine HCl 0.1 mg tablet 0.05 mg PO TID 08/18/20 doxepin 25 mg capsule 25 mg PO BEDTIME 08/18/20 gabapentin 100 mg tablet 100 mg PO BID 08/18/20 levetiracetam 250 mg tablet 250 mg PO 08/18/20 levetiracetam 500 mg tablet 500 mg PO 08/18/20 lisinopril 40 mg tablet 40 mg PO DAILY 08/18/20 pantoprazole 40 mg tablet,delayed 40 mg PO DAILY 08/18/20 release sevelamer carbonate 800 mg tablet 3,200 mg PO 08/18/20 (Renvela) trazodone 100 mg tablet 100 mg PO BEDTIME 08/18/20 Allergies Allergy/AdvReac Type Severity Reaction Status Date / Time No Known Allergies Allergy Mild NA Verified 10/30/21 11:02 Review of Systems Neurologic: Denies Sensory deficit (Neuro) [facility] Past Medical History Medical History (Updated 02/11/22 @ 06:22 by Candido Mims MD) CHF (congestive heart failure) Cholelithiasis End stage renal disease End stage renal disease Hypercholesteremia Thoracotomy scar of right chest Surgical History S/P thoracotomy Social History Social History Household Members: Unknown / Unable to assess Unable to assess alcohol history related to: Unknown and Refusing to respond Alcohol intake: unknown Patient Tobacco Use Status: Tobacco use Unknown Cigarette Packs Per Day: 1 Use of substances other than those prescribed or required for medical reasons: Unknown Advance Directives: No Advance Directives Information Provided: No service: No Current occupational status: disabled Current occupation: Rt handed Physical Exam 2 Vital Signs: Vital Signs: Last Vital Signs Temp 97.7 F 02/11/22 05:56 Pulse 65 02/11/22 05:56 Resp 16 02/11/22 05:56 BP 106/55 L 02/11/22 05:56 Pulse Ox 97 02/11/22 05:56 BMI result Body Mass Index 27.4 Const: Other: chronically ill emaciated Limitations: altered mental status HEENT: Head: Yes normal to inspection Ears: external ears normal General nose exam: Normal external nose present Mouth: Normal oral and palatal mucosa present and oropharynx normal Throat: Yes posterior oropharynx normal Eyes: General: appearance normal, both eyes and all related structures Neck: Other: supple Neck: Yes normal visual inspection Chest: Chest palpation & inspection: normal inspection of the chest Resp: Auscultation: clear to auscultation bilaterally Cardio: Jugular venous distension: no JVD Rate: regular rate Rhythm: regular rhythm Heart sounds: S1 normal heart sound present and S2 normal heart sound present GI: Inspection: Yes normal to inspection Palpation (GI): Soft to palpation, nontender and No hepatosplenomegaly present Auscultation: normal bowel sounds : General: Yes no CVA tenderness Back/Spine/Pelvis: Back: no CVA tenderness Skin: General skin exam: no rashes or lesions noted Neuro: Other: withdraws all extremities equally to pain Sensory Exam: No Sensory deficit (Neuro) Extrem: General: Yes normal to inspection Psych: Appearance: grossly normal Course Reevaluation(s) Reevaluation #1: patient with nonfocal neuro exam withdraws all extemities to pain, not likely stroke symptoms, WBC very elevated will look for source of fever Reevaluation #2: Patient not in septic shock, lactic acid only 2.3, will give vancomycin and zosyn, patient also uremic Time: 06:20 MDM - Weakness Lab Data Result diagrams: 02/11/22 05:07 02/11/22 05:07 Labs: Lab Results 02/11/22 02/11/22 02/11/22 Range/Units 04:34 04:35 05:07 WBC 30.7 H* (4.8-10.8) X10*3/uL RBC 4.38 L (4.60-5.80) X10*6/uL Hgb 13.6 L (14.0-18.0) g/dl Hct 39.5 L (42.0-52.0) % MCV 90.2 (80.0-98.0) fL MCH 31.1 (27.0-33.0) pg MCHC 34.4 (31.0-36.0) g/dl RDW 16.3 H (11.0-16.0) % Plt Count 105 L (160-400) X10*3/uL MPV 11.3 (9.4-12.4) fL Immature Gran % (Auto) 3.5 H (0.0-0.4) % Neut % (Auto) 87.4 H (45-73) % Lymph % (Auto) 4.7 L (20-40) % Sunflower % (Auto) 4.0 (2-11) % Eos % (Auto) 0.1 (0-4) % Baso % (Auto) 0.3 (0-2) % Lymph # (Auto) 1.4 (1.2-4.9) X10*3/uL Sunflower # (Auto) 1.2 (0.1-1.2) X10*3/uL Eos # (Auto) 0.0 (0.0-0.4) X10*3/uL Baso # (Auto) 0.1 (0.0-0.2) X10*3/uL Abs Immat Gran (auto) 1.07 H (0.00-0.03) X10*3/uL Absolute Neuts (auto) 26.9 H (2.0-8.3) x10*3/uL Absolute Nucleated RBC 0.130 H (0.0-0.012) X10*3/uL Nucleated RBC % (auto) 0.4 H (0.0-0.2) /100WBC Smear Tech's Comments VERIFIED PT (9.9-13.0) SEC Whole Blood PT 19.7 H (11.1-13.5) sec INR (0.9-1.1) Whole Blood INR 1.6 H (0.9-1.1) APTT (24.1-38.0) SEC Sodium (135-145) mmol/L Potassium (3.3-5.1) mmol/L Chloride (96-108) mmol/L Carbon Dioxide (22-29) mmol/L Anion Gap (12-20) BUN (9-16) mg/dL Creatinine (0.5-1.4) mg/dL Estim Creat Clear Calc Estimated GFR POC Glucose 100 (60-115) mg/dL Random Glucose (60-115) mg/dL Lactic Acid (0.5-2.0) mmol/L Calcium (8.4-10.2) mg/dL Total Creatine Kinase (38-174) U/L Troponin I High Sens (<3.5-35.0) ng/L Urine Color Urine Appearance Urine pH (5.0-8.0) Ur Specific [place] (1.005-1.025) Urine Protein (NEG-TRACE) MG/DL Urine Glucose (UA) (NEG) MG/DL Urine Ketones (NEG) MG/DL Urine Blood (NEG) Urine Nitrite (NEG) Ur Leukocyte Esterase (NEG) Urine RBC (0) /HPF Urine WBC (0-4) /HPF Ur Squamous Epith Cells /LPF Calcium Phosphate Cryst /LPF Urine Bacteria /LPF COVID-19 (WILL) (Negative) COVID-19 Clin Com Influenza Type A (DAYANA) (Negative) Influenza Type B (DAYANA) (Negative) Influenza A & B Note 02/11/22 02/11/22 02/11/22 Range/Units 05:07 05:07 05:07 WBC (4.8-10.8) X10*3/uL RBC (4.60-5.80) X10*6/uL Hgb (14.0-18.0) g/dl Hct (42.0-52.0) % MCV (80.0-98.0) fL MCH (27.0-33.0) pg MCHC (31.0-36.0) g/dl RDW (11.0-16.0) % Plt Count (160-400) X10*3/uL MPV (9.4-12.4) fL Immature Gran % (Auto) (0.0-0.4) % Neut % (Auto) (45-73) % Lymph % (Auto) (20-40) % Sunflower % (Auto) (2-11) % Eos % (Auto) (0-4) % Baso % (Auto) (0-2) % Lymph # (Auto) (1.2-4.9) X10*3/uL Sunflower # (Auto) (0.1-1.2) X10*3/uL Eos # (Auto) (0.0-0.4) X10*3/uL Baso # (Auto) (0.0-0.2) X10*3/uL Abs Immat Gran (auto) (0.00-0.03) X10*3/uL Absolute Neuts (auto) (2.0-8.3) x10*3/uL Absolute Nucleated RBC (0.0-0.012) X10*3/uL Nucleated RBC % (auto) (0.0-0.2) /100WBC Smear Tech's Comments PT 16.8 H (9.9-13.0) SEC Whole Blood PT (11.1-13.5) sec INR 1.5 H (0.9-1.1) Whole Blood INR (0.9-1.1) APTT 42.3 H (24.1-38.0) SEC Sodium 139 (135-145) mmol/L Potassium 4.7 (3.3-5.1) mmol/L Chloride 96 (96-108) mmol/L Carbon Dioxide 24 (22-29) mmol/L Anion Gap 24 H (12-20) BUN 53 H (9-16) mg/dL Creatinine 9.57 H* (0.5-1.4) mg/dL Estim Creat Clear Calc 5.9 Estimated GFR 5 POC Glucose (60-115) mg/dL Random Glucose 96 (60-115) mg/dL Lactic Acid (0.5-2.0) mmol/L Calcium 9.5 D (8.4-10.2) mg/dL Total Creatine Kinase 110 (38-174) U/L Troponin I High Sens 358.1 H* (<3.5-35.0) ng/L Urine Color Urine Appearance Urine pH (5.0-8.0) Ur Specific [place] (1.005-1.025) Urine Protein (NEG-TRACE) MG/DL Urine Glucose (UA) (NEG) MG/DL Urine Ketones (NEG) MG/DL Urine Blood (NEG) Urine Nitrite (NEG) Ur Leukocyte Esterase (NEG) Urine RBC (0) /HPF Urine WBC (0-4) /HPF Ur Squamous Epith Cells /LPF Calcium Phosphate Cryst /LPF Urine Bacteria /LPF COVID-19 (WILL) (Negative) COVID-19 Clin Com Influenza Type A (DAYANA) (Negative) Influenza Type B (DAYANA) (Negative) Influenza A & B Note 02/11/22 02/11/22 02/11/22 Range/Units 05:07 05:07 05:54 WBC (4.8-10.8) X10*3/uL RBC (4.60-5.80) X10*6/uL Hgb (14.0-18.0) g/dl Hct (42.0-52.0) % MCV (80.0-98.0) fL MCH (27.0-33.0) pg MCHC (31.0-36.0) g/dl RDW (11.0-16.0) % Plt Count (160-400) X10*3/uL MPV (9.4-12.4) fL Immature Gran % (Auto) (0.0-0.4) % Neut % (Auto) (45-73) % Lymph % (Auto) (20-40) % Sunflower % (Auto) (2-11) % Eos % (Auto) (0-4) % Baso % (Auto) (0-2) % Lymph # (Auto) (1.2-4.9) X10*3/uL Sunflower # (Auto) (0.1-1.2) X10*3/uL Eos # (Auto) (0.0-0.4) X10*3/uL Baso # (Auto) (0.0-0.2) X10*3/uL Abs Immat Gran (auto) (0.00-0.03) X10*3/uL Absolute Neuts (auto) (2.0-8.3) x10*3/uL Absolute Nucleated RBC (0.0-0.012) X10*3/uL Nucleated RBC % (auto) (0.0-0.2) /100WBC Smear Tech's Comments PT (9.9-13.0) SEC Whole Blood PT (11.1-13.5) sec INR (0.9-1.1) Whole Blood INR (0.9-1.1) APTT (24.1-38.0) SEC Sodium (135-145) mmol/L Potassium (3.3-5.1) mmol/L Chloride (96-108) mmol/L Carbon Dioxide (22-29) mmol/L Anion Gap (12-20) BUN (9-16) mg/dL Creatinine (0.5-1.4) mg/dL Estim Creat Clear Calc Estimated GFR POC Glucose (60-115) mg/dL Random Glucose (60-115) mg/dL Lactic Acid (0.5-2.0) mmol/L Calcium (8.4-10.2) mg/dL Total Creatine Kinase (38-174) U/L Troponin I High Sens (<3.5-35.0) ng/L Urine Color DK YELLOW Urine Appearance HAZY Urine pH 8.0 (5.0-8.0) Ur Specific [place] 1.015 (1.005-1.025) Urine Protein 3+ H (NEG-TRACE) MG/DL Urine Glucose (UA) NEG (NEG) MG/DL Urine Ketones NEG (NEG) MG/DL Urine Blood 2+ H (NEG) Urine Nitrite NEG (NEG) Ur Leukocyte Esterase NEG (NEG) Urine RBC 5-9 H (0) /HPF Urine WBC 1-4 (0-4) /HPF Ur Squamous Epith Cells 1+ /LPF Calcium Phosphate Cryst 1+ /LPF Urine Bacteria NONE /LPF COVID-19 (WILL) Negative (Negative) COVID-19 Clin Com See Note Influenza Type A (DAYANA) Negative (Negative) Influenza Type B (DAYANA) Negative (Negative) Influenza A & B Note See Note 02/11/22 Range/Units 05:54 WBC (4.8-10.8) X10*3/uL RBC (4.60-5.80) X10*6/uL Hgb (14.0-18.0) g/dl Hct (42.0-52.0) % MCV (80.0-98.0) fL MCH (27.0-33.0) pg MCHC (31.0-36.0) g/dl RDW (11.0-16.0) % Plt Count (160-400) X10*3/uL MPV (9.4-12.4) fL Immature Gran % (Auto) (0.0-0.4) % Neut % (Auto) (45-73) % Lymph % (Auto) (20-40) % Sunflower % (Auto) (2-11) % Eos % (Auto) (0-4) % Baso % (Auto) (0-2) % Lymph # (Auto) (1.2-4.9) X10*3/uL Sunflower # (Auto) (0.1-1.2) X10*3/uL Eos # (Auto) (0.0-0.4) X10*3/uL Baso # (Auto) (0.0-0.2) X10*3/uL Abs Immat Gran (auto) (0.00-0.03) X10*3/uL Absolute Neuts (auto) (2.0-8.3) x10*3/uL Absolute Nucleated RBC (0.0-0.012) X10*3/uL Nucleated RBC % (auto) (0.0-0.2) /100WBC Smear Tech's Comments PT (9.9-13.0) SEC Whole Blood PT (11.1-13.5) sec INR (0.9-1.1) Whole Blood INR (0.9-1.1) APTT (24.1-38.0) SEC Sodium (135-145) mmol/L Potassium (3.3-5.1) mmol/L Chloride (96-108) mmol/L Carbon Dioxide (22-29) mmol/L Anion Gap (12-20) BUN (9-16) mg/dL Creatinine (0.5-1.4) mg/dL Estim Creat Clear Calc Estimated GFR POC Glucose (60-115) mg/dL Random Glucose (60-115) mg/dL Lactic Acid 2.3 H* (0.5-2.0) mmol/L Calcium (8.4-10.2) mg/dL Total Creatine Kinase (38-174) U/L Troponin I High Sens (<3.5-35.0) ng/L Urine Color Urine Appearance Urine pH (5.0-8.0) Ur Specific [place] (1.005-1.025) Urine Protein (NEG-TRACE) MG/DL Urine Glucose (UA) (NEG) MG/DL Urine Ketones (NEG) MG/DL Urine Blood (NEG) Urine Nitrite (NEG) Ur Leukocyte Esterase (NEG) Urine RBC (0) /HPF Urine WBC (0-4) /HPF Ur Squamous Epith Cells /LPF Calcium Phosphate Cryst /LPF Urine Bacteria /LPF COVID-19 (WILL) (Negative) COVID-19 Clin Com Influenza Type A (DAYANA) (Negative) Influenza Type B (DAYANA) (Negative) Influenza A & B Note Imaging Data CT scan - head: Radiologist's impression: chronic changes Critical Care Time Critical Care Time Attestation: I spent 40 minutes of critical care, with interventions, assessments, speaking to patient, consultants, and family. Discharge Plan Discharge Clinical Impression: Acute uremia, Leukocytosis, Bacteremia Patient Disposition: Admitted As Inpatient
--- NOTE | 2022-02-11 04:34 | ECG_ITS ---
Test Reason : STROKE PROTOCOL Blood Pressure : / mmHG Vent. Rate : 067 BPM Atrial Rate : 067 BPM P-R Int : 212 ms QRS Dur : 104 ms QT Int : 422 ms P-R-T Axes : 017 -33 084 degrees QTc Int : 445 ms Sinus rhythm with 1st degree A-V block Left axis deviation Low voltage QRS Abnormal ECG When compared with ECG of 27-APR-2021 15:37, MO interval has increased ST no longer depressed in Lateral leads Referred By: Candido Mims Electronically Signed By:J Luis Wells
[2022-02-11 04:38] LABS: Prothrombin Time Whole Bld POC 19.7 sec (11.1-13.5); ~PT, ~INR - Anti Coag Clinic 1.6 (0.9-1.1)
--- NOTE | 2022-02-11 04:44 | PC.NURSE ---
pt taken to ct scan, poc, inr, Ptt and labs collected. EKG. pt will be placed on bedside monitor.
[2022-02-11 04:46] LABS: Glucose, Whole Blood 100 mg/dL (60-115)
--- NOTE | 2022-02-11 04:51 | PC.NURSE ---
Called Mitra who was with him. reports pt was talking before bed time. [place] him vomiting. called his name out, was not responding. 911 called for stroke alert. pt was suppose to go to dialysis today.
[2022-02-11 05:14] LABS: Basophils Absolute Auto 0.1 X10*3/uL (0.0-0.2); Basophils Percent Auto 0.3 % (0-2); Eosinophils Percent Auto 0.1 % (0-4); Hematocrit 39.5 % (42.0-52.0); Hemoglobin 13.6 g/dl (14.0-18.0); Imm Gran Abs Auto 1.07 X10*3/uL (0.00-0.03); Imm Gran Pct Auto 3.5 % (0.0-0.4); Lymphocytes Absolute Auto 1.4 X10*3/uL (1.2-4.9); Lymphocytes Percent Auto 4.7 % (20-40); MANUAL DIFF FLAG SCAN; Mean Corpuscular HGB Conc 34.4 g/dl (31.0-36.0); Mean Corpuscular Hemoglobin 31.1 pg (27.0-33.0); Mean Corpuscular Volume 90.2 fL (80.0-98.0); Mean Platelet Volume 11.3 fL (9.4-12.4); Monocytes Absolute Auto 1.2 X10*3/uL (0.1-1.2); NRBC Pct Auto 0.4 /100WBC (0.0-0.2); Neutrophils Absolute Auto 26.9 x10*3/uL (2.0-8.3); Neutrophils Percent Auto 87.4 % (45-73); Platelet Count 105 X10*3/uL (160-400); Red Blood Count 4.38 X10*6/uL (4.60-5.80); Red Cell Distribution Width 16.3 % (11.0-16.0); SCAN SMEAR FLAG 1
--- NOTE | 2022-02-11 05:15 | PC.NURSE ---
PATIENT WAS CHANGE INTO HOSPITAL ATTIRE .
[2022-02-11 05:21] LABS: White Blood Count 30.7 X10*3/uL (4.8-10.8)
[2022-02-11 05:22] LABS: INTERNATIONAL NORM RATIO 1.5 (0.9-1.1); Prothrombin Time 16.8 SEC (9.9-13.0)
[2022-02-11 05:25] LABS: Partial Thromboplastin Time 42.3 SEC (24.1-38.0)
[2022-02-11 05:32] LABS: COVID-19 Test Negative (Negative); Influenza A Negative (Negative); Influenza B2 Negative (Negative)
[2022-02-11 05:35] LABS: SLIDE REVIEW VERIFIED
[2022-02-11 05:36] LABS: Anion Gap 24 (12-20); Blood Urea Nitrogen 53 mg/dL (9-16); Calcium 9.5 mg/dL (8.4-10.2); Carbon Dioxide 24 mmol/L (22-29); Chloride 96 mmol/L (96-108); Creatinine Clr Calc Pharmacy 5.9; Estimated Glomerular Filt Rate 5; Glucose Random 96 mg/dL (60-115); Potassium 4.7 mmol/L (3.3-5.1); Sodium 139 mmol/L (135-145)
[2022-02-11 05:50] LABS: Troponin-I High Sensitivity 358.1 ng/L (<3.5-35.0)
--- NOTE | 2022-02-11 05:57 | PC.NURSE ---
provider aware of critical labs. wbc 30.7, creatine of 9.57, trop 358.1
[2022-02-11 06:04] LABS: Appearance Urine HAZY; Color Urine DK YELLOW; Glucose Urine UA NEG (NEG); Leukocyte Esterase Urine NEG (NEG); Nitrite Urine NEG (NEG); Specific Gravity - Urine 1.015 (1.005-1.025); UACC Culture Trigger NO; Urine Blood 2+ (NEG); Urine Ketones NEG (NEG); Urine Protein 3+ MG/DL (NEG-TRACE)
[2022-02-11 06:14] LABS: Lactic Acid 2.3 mmol/L (0.5-2.0)
[2022-02-11 06:21] LABS: Calcium Phosphate Crystals Ur 1+ /LPF; Squamous Epithelial Cell Urine 1+ /LPF
[2022-02-11] MEDS: Piperacillin Sodium/Tazobactam 3.375 GM in 0.9 % Sodium Chloride 50 ML IV (06:30)
[2022-02-11 06:53] LABS: Stroke Lab Use COMPLETE
[2022-02-11] MEDS: vancomycin HCL 1,250 MG in 0.9 % Sodium Chloride 250 ML 166.67 MG IV (07:09)
[2022-02-11 08:00] LABS: Reflex Lactate? Lactic Acid Added
--- NOTE | 2022-02-11 08:52 | PHA.MEDREC ---
Pharmacy Consult ? Medication Reconciliation Pharmacy has completed the medication reconciliation. Patient use [facility] at [facility] pharmacy. Contact the pharmacy to get list of active medications. Caridad Lux, MakennaD
[2022-02-11 09:10] LABS: ~Lactic Acid-LAB USE ONLY 2.3 mmol/L (0.5-2.0)
--- NOTE | 2022-02-11 09:18 | P.HPHOSP_ITS ---
History of Present Illness Date of Service: 02/11/22 Chief Complaint: vomiting and shaking This is a 71 yo M with multiple medical issues (as listed) below, who presented to the ED BIBA after he was noted to be vomiting and shaking at home just prior to arrival. The patient is currently unable to provide a history and hence, it is obtained from the patients daughter Sloane (@ [phone]). She reports that the patient lives with her mother who relays the information to her. She states that she took her father to dialysis on Tuesday (2 days prior to admission) and at that point he appeared to be weak. He was not eating his usual amount of food for a day before this. There are no reports of fevers/chills. No reports of diarrhea, abdominal pain. His nausea/vomiting started just prior to arrival. During the vomiting episode -- he was found to be shaking and reportedly had a facial droop. He was conscious but non-verbal. 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 Upon arrival to the ED, the patient underwent basic work up and imaging studies. His CT brain was negative. His CXR showed patchy L bibasilar / retrocardiac opacities which may be due to pneumonia/aspiration. His initial vitals in the ED were 114/55-97 on 2L with a normal RR and a normal temp. CBCD showed 30/13.6/39.5/105; His HS trop-I was in the 300s with repeat decreased slightly. He was given IV vancomcyin/zosyn and admission was requested. When I saw the patient in the ED shortly before 9, the patient was awake but not alert. He was starting blankly. There was no response to verbal or painful tactile stimuli. Dr. Delgadillo was neurology was consulted and came bedside immediately and decision was made to give a stat dose of IV keppra for possible status epilepticus. Shortly thereafter, the patient was found to be hypoxic down to the 70s (with a good pleth). He was placed on NRM and then HFNC + NRM with saturations slowly improving to the high 80s and eventually the 90s. A critical care consult was requested and Dr. Liriano was bedside shortly. The patient was suctioned and initially had brownish phlegm followed by what appears to be bilious drainage. His saturation improved and he will now be admitted to telemetry. Review of Systems Review of Systems: unable to assess due to mental status changes [facility] Medical History CHF (congestive heart failure) Cholelithiasis End stage renal disease End stage renal disease Hypercholesteremia Thoracotomy scar of right chest Pertinent family history: unable to assess due to mental status Surgical History S/P thoracotomy Social History Household Members: Unknown / Unable to assess Unable to assess alcohol history related to: Unknown and Refusing to respond Alcohol intake: unknown Patient Tobacco Use Status: Tobacco use Unknown Cigarette Packs Per Day: 1 Use of substances other than those prescribed or required for medical reasons: Unknown Advance Directives: No Advance Directives Information Provided: No service: No Current occupational status: disabled Current occupation: Rt handed Meds Allergies Allergy/AdvReac Type Severity Reaction Status Date / Time No Known Allergies Allergy Mild NA Verified 10/30/21 11:02 Active Medications: Current Medications Levetiracetam (Keppra) 1,000 mg in 100 mls @ 400 mls/hr IV ONCE ONE Stop: 02/11/22 09:23 Pharmacy Consult (Consult Rx Vancomycin Dosing) 1 each MISCELLANE DAILY PRN PRN Reason: Consult order Home Medications Medication Instructions Recorded Confirmed Last Taken Type carvedilol 12.5 mg tablet 12.5 mg PO BID 08/18/20 02/11/22 Unknown History clonidine HCl 0.1 mg tablet 0.1 mg PO TID 08/18/20 02/11/22 Unknown History doxepin 25 mg capsule 25 mg PO BEDTIME 08/18/20 02/11/22 Unknown History levetiracetam 250 mg tablet 250 mg PO TUTHSA@1700 08/18/20 02/11/22 Unknown History levetiracetam 500 mg tablet 500 mg PO DAILY@1700 08/18/20 02/11/22 Unknown History pantoprazole 40 mg tablet,delayed 40 mg PO DAILY 08/18/20 02/11/22 Unknown History release amlodipine 10 mg tablet 1 tab PO DAILY 02/11/22 02/11/22 Unknown History diphenhydramine HCl 25 mg capsule 1 cap PO TID PRN 02/11/22 02/11/22 Unknown History fluticasone propionate 50 2 spray INTRANASAL DAILY PRN 02/11/22 02/11/22 Unknown History mcg/actuation nasal spray,suspension lidocaine-prilocaine 2.5 %-2.5 % 1 appl TOPICAL TUTHSA 02/11/22 02/11/22 Unknown History topical cream lisinopril 20 mg tablet 1 tab PO DAILY 02/11/22 02/11/22 Unknown History oxycodone-acetaminophen 5 mg-325 1 tab PO Q8H PRN 02/11/22 02/11/22 Unknown H istory mg tablet vitamin B complex and vitamin C 1 cap PO QAM 02/11/22 02/11/22 Unknown History no.20-folic acid 1 mg capsule (Triphrocaps) Physical Exam Vital Signs and Narrative: Vital Signs: Last Vital Signs Temp 97.7 F 02/11/22 05:56 Pulse 65 02/11/22 05:56 Resp 16 02/11/22 05:56 BP 106/55 L 02/11/22 05:56 Pulse Ox 97 02/11/22 05:56 BMI result Body Mass Index 27.4 Const: Other: Constitutional - Awake but not alert, is not in respiratory distress Eyes - spontaneous eye movements; pupils constricted, but reactive Cardiovascular - S1S2, RRR, No edema Respiratory - Poor air entry bilaterally with scattered rhonchi Gastrointestinal - non-distended with hypoactive BS - No CVA tenderness Extremities - no calf tenderness bilaterally, no swelling Musculoskeletal - Normal inspection, normal ROM Skin - Warm/Dry Neurological - Does not follow commands, does not speak; no obvious facial asymmetry; moves all 4 limbs Results Labs CBC and Chem 7: 02/11/22 05:07 02/11/22 05:07 Labs: Laboratory Results - last 24 hr 02/11/22 02/11/22 02/11/22 04:34 04:35 05:07 MCV 90.2 MCH 31.1 MCHC 34.4 RDW 16.3 H Plt Count 105 L MPV 11.3 Immature Gran % (Auto) 3.5 H Neut % (Auto) 87.4 H Lymph % (Auto) 4.7 L [place] % (Auto) 4.0 Eos % (Auto) 0.1 Baso % (Auto) 0.3 Lymph # (Auto) 1.4 [place] # (Auto) 1.2 Eos # (Auto) 0.0 Baso # (Auto) 0.1 Abs Immat Gran (auto) 1.07 H Absolute Neuts (auto) 26.9 H Absolute Nucleated RBC 0.130 H Nucleated RBC % (auto) 0.4 H Smear Tech's Comments VERIFIED PT Whole Blood PT 19.7 H INR Whole Blood INR 1.6 H APTT Anion Gap Estim Creat Clear Calc Estimated GFR POC Glucose 100 Random Glucose Lactic Acid Lactic Acid F/U @ 2Hr Calcium Total Creatine Kinase Troponin I High Sens Urine Color Urine Appearance Urine pH Ur Specific [place] Urine Protein Urine Glucose (UA) Urine Ketones Urine Blood Urine Nitrite Ur Leukocyte Esterase Urine RBC Urine WBC Ur Squamous Epith Cells Calcium Phosphate Cryst Urine Bacteria COVID-19 (WILL) COVID-19 Clin Com Influenza Type A (DAYANA) Influenza Type B (DAYANA) Influenza A & B Note 02/11/22 02/11/22 02/11/22 05:07 05:07 05:07 MCV MCH MCHC RDW Plt Count MPV Immature Gran % (Auto) Neut % (Auto) Lymph % (Auto) [place] % (Auto) Eos % (Auto) Baso % (Auto) Lymph # (Auto) [place] # (Auto) Eos # (Auto) Baso # (Auto) Abs Immat Gran (auto) Absolute Neuts (auto) Absolute Nucleated RBC Nucleated RBC % (auto) Smear Tech's Comments PT 16.8 H Whole Blood PT INR 1.5 H Whole Blood INR APTT 42.3 H Anion Gap 24 H Estim Creat Clear Calc 5.9 Estimated GFR 5 POC Glucose Random Glucose 96 Lactic Acid Lactic Acid F/U @ 2Hr Calcium 9.5 D Total Creatine Kinase 110 Troponin I High Sens 358.1 H* Urine Color Urine Appearance Urine pH Ur Specific [place] Urine Protein Urine Glucose (UA) Urine Ketones Urine Blood Urine Nitrite Ur Leukocyte Esterase Urine RBC Urine WBC Ur Squamous Epith Cells Calcium Phosphate Cryst Urine Bacteria COVID-19 (WILL) COVID-19 Clin Com Influenza Type A (DAYANA) Influenza Type B (DAYANA) Influenza A & B Note 02/11/22 02/11/22 02/11/22 05:07 05:07 05:54 MCV MCH MCHC RDW Plt Count MPV Immature Gran % (Auto) Neut % (Auto) Lymph % (Auto) [place] % (Auto) Eos % (Auto) Baso % (Auto) Lymph # (Auto) [place] # (Auto) Eos # (Auto) Baso # (Auto) Abs Immat Gran (auto) Absolute Neuts (auto) Absolute Nucleated RBC Nucleated RBC % (auto) Smear Tech's Comments PT Whole Blood PT INR Whole Blood INR APTT Anion Gap Estim Creat Clear Calc Estimated GFR POC Glucose Random Glucose Lactic Acid Lactic Acid F/U @ 2Hr Calcium Total Creatine Kinase Troponin I High Sens Urine Color DK YELLOW Urine Appearance HAZY Urine pH 8.0 Ur Specific [place] 1.015 Urine Protein 3+ H Urine Glucose (UA) NEG Urine Ketones NEG Urine Blood 2+ H Urine Nitrite NEG Ur Leukocyte Esterase NEG Urine RBC 5-9 H Urine WBC 1-4 Ur Squamous Epith Cells 1+ Calcium Phosphate Cryst 1+ Urine Bacteria NONE COVID-19 (WILL) Negative COVID-19 Clin Com See Note Influenza Type A (DAYANA) Negative Influenza Type B (DAYANA) Negative Influenza A & B Note See Note 02/11/22 02/11/22 05:54 08:41 MCV MCH MCHC RDW Plt Count MPV Immature Gran % (Auto) Neut % (Auto) Lymph % (Auto) [place] % (Auto) Eos % (Auto) Baso % (Auto) Lymph # (Auto) [place] # (Auto) Eos # (Auto) Baso # (Auto) Abs Immat Gran (auto) Absolute Neuts (auto) Absolute Nucleated RBC Nucleated RBC % (auto) Smear Tech's Comments PT Whole Blood PT INR Whole Blood INR APTT Anion Gap Estim Creat Clear Calc Estimated GFR POC Glucose Random Glucose Lactic Acid 2.3 H* Lactic Acid F/U @ 2Hr 2.3 H* Calcium Total Creatine Kinase Troponin I High Sens Urine Color Urine Appearance Urine pH Ur Specific [place] Urine Protein Urine Glucose (UA) Urine Ketones Urine Blood Urine Nitrite Ur Leukocyte Esterase Urine RBC Urine WBC Ur Squamous Epith Cells Calcium Phosphate Cryst Urine Bacteria COVID-19 (WILL) COVID-19 Clin Com Influenza Type A (DAYANA) Influenza Type B (DAYANA) Influenza A & B Note Imaging Radiologist's Impressions: Impressions Head CT 02/11/22 04:48 IMPRESSION: No acute intracranial findings identified. Chronic appearing changes as noted above. This critical result was discussed with Dr. Mims on 02/11/2022 5:01 AM, and it was ascertained that the content and urgency of the report was understood at the time of direct communication. Chest X-Ray 02/11/22 06:04 IMPRESSION: Patchy left basilar retrocardiac opacity which may be due to pneumonia or aspiration in the proper clinical setting. Small left pleural effusion suspected. Assessment and Plan (1) Encephalopathy: Status: Acute Plan This is a 71 yo M who presented to the ED after vomiting and what is described as possible seizure activity. He likely has developed aspiration pneumonia, possibly secondary to seizure activity. He will be admitted for further care. 1. Acute encepahlopathy -- toxic/metabolic and possibly secondary to seizures see details below 2. Acute respiratory failure with hypoxia 2a. Aspiration pneumonia Continue HFNC + NRM -- wean both as tolerated; O2 goal 92% IV Unasyn for now; received 1 dose empiric vancomcyin, will evaluate need post dialysis 3. Suspected seizures IV keppra 1g x 1 given; cotninue baseline dose -- will change to IV EEG Neurology consult 4. ESRD on HD T, , S Nephrology consulted 5. Elevated HS trop-I flat EKG without acute ishemic findings 6. Lactic acidosis secondary to hypoxia; does not meet sepsis criteria at the time of admission 7. Bilious vomitus clinically does not appear to have bowel obstruction will start with KUB NPO for now repeat H/H Full Code DVT pptx, mechanical for now In light of the patients multiple active issues, including encephalopathy/possible status epilepticus and respiratory failure, I anticipate a medically necessary inpatient hospitalization which is likely to span at least 2 midnights. This cannot be completed in a less acute setting. Quality Stroke Does the patient have a stroke diagnosis?: No VTE Prior VTE?: No VTE Risk Level:: Medical - moderate - high VTE Device Contraindication: N/A - Device Ordered VTE Drug Contraindication: N/A - Med Ordered
[2022-02-11 09:26] LABS: Troponin-I High Sensitivity 316.8 ng/L (<3.5-35.0)
[2022-02-11] MEDS: levETIRAcetam in NaCl (iso-os) 1,000 MG/100 ML PIGGYBACK 400 MG IV (10:40)
[2022-02-11 10:44] LABS: Reflex Lactate? 2 Y
--- NOTE | 2022-02-11 11:58 | PC.NURSE ---
PT NOTED TO BE HYPOXIC, GASPING FOR AIR. NON-
--- NOTE | 2022-02-11 11:59 | PC.NURSE ---
Addendum entered by Valarie Resendiz 02/11/22 12:01: THIS OCCURED AT 10 AM Original Note: PT NOTED TO BE HYPOXIC--SAT MID 60'S. 15 L NON-REBREATHER APPLIED. DR DOSS AWARE. HIGH FLOW O2 ORDERED. NOTED TO HAVE LARGE AMT OF SPUTUM IN MOUTH, SUCTIONED.
--- NOTE | 2022-02-11 13:31 | P.CNNE_ITS ---
History of Present Illness Data of Consult Service Date: 02/11/22 Primary Care Provider: Freida Benedict MD [facility] Reason for consult: Status epilepticus 71 years old man with underlying history of end-stage renal disease came to hospital with unresponsiveness. I was asked to see him in emergency room when he was unresponsive and was having shaking movements. He could not provide any history. Apparently he has underlying history of seizure disorder and he was taking Keppra. Review of Systems Review of Systems: Could not be done with [facility] Past Medical History Medical History CHF (congestive heart failure) Cholelithiasis End stage renal disease End stage renal disease Hypercholesteremia Thoracotomy scar of right chest Surgical History Surgical History S/P thoracotomy Social History Social History Household Members: Unknown / Unable to assess Unable to assess alcohol history related to: Unknown and Refusing to respond Alcohol intake: unknown Patient Tobacco Use Status: Tobacco use Unknown Cigarette Packs Per Day: 1 Use of substances other than those prescribed or required for medical reasons: Unknown Advance Directives: No Advance Directives Information Provided: No service: No Current occupational status: disabled Current occupation: Rt handed Meds Allergies Allergy/AdvReac Type Severity Reaction Status Date / Time No Known Allergies Allergy Mild NA Verified 10/30/21 11:02 Active Medications: Current Medications Ampicillin Sodium/Sulbactam (Sodium 3 gm/ Sodium Chloride) 100 mls @ 200 mls/hr IV Q24H [facility] Pharmacy Consult (Consult Rx Vancomycin Dosing) 1 each MISCELLANE DAILY PRN PRN Reason: Consult order Sodium Chloride (0.9 % Sodium Chloride Flush 3 Ml Syringe) [facility] Home Medications Medication Instructions Recorded Confirmed Last Taken Type carvedilol 12.5 mg tablet 12.5 mg PO BID 08/18/20 02/11/22 Unknown History clonidine HCl 0.1 mg tablet 0.1 mg PO TID 08/18/20 02/11/22 Unknown History doxepin 25 mg capsule 25 mg PO BEDTIME 08/18/20 02/11/22 Unknown History levetiracetam 250 mg tablet 250 mg PO TUTHSA@1700 08/18/20 02/11/22 Unknown History levetiracetam 500 mg tablet 500 mg PO DAILY@1700 08/18/20 02/11/22 Unknown History pantoprazole 40 mg tablet,delayed 40 mg PO DAILY 08/18/20 02/11/22 Unknown History release amlodipine 10 mg tablet 1 tab PO DAILY 02/11/22 02/11/22 Unknown History diphenhydramine HCl 25 mg capsule 1 cap PO TID PRN 02/11/22 02/11/22 Unknown History fluticasone propionate 50 2 spray INTRANASAL DAILY PRN 02/11/22 02/11/22 Unknown History mcg/actuation nasal spray,suspension lidocaine-prilocaine 2.5 %-2.5 % 1 appl TOPICAL [place] 02/11/22 02/11/22 Unknown History topical cream lisinopril 20 mg tablet 1 tab PO DAILY 02/11/22 02/11/22 Unknown History oxycodone-acetaminophen 5 mg-325 1 tab PO Q8H PRN 02/11/22 02/11/22 Unknown History mg tablet vitamin B complex and vitamin C 1 cap PO QAM 02/11/22 02/11/22 Unknown History no.20-folic acid 1 mg capsule (Triphrocaps) Physical Exam Vital Signs: Vital Signs: Last Vital Signs Temp 97.7 F 02/11/22 05:56 Pulse 58 02/11/22 12:02 Resp 14 02/11/22 12:09 BP 98/42 L 02/11/22 12:02 Pulse Ox 100 02/11/22 12:02 BMI result Body Mass Index 27.4 Neuro: Other: Not responsive to verbal or painful stimuli. Eyes were half open. Right eye was deviated to the right and left was somewhat in the midline. His feet intermittently had clonic type of movements. Face was pendulous and [place] open. Deep tendon reflexes were absent. Plantars were flat. Results Labs CBC & Chem 7: 02/11/22 05:07 02/11/22 05:07 Labs: Short CBC 02/11/22 Range/Units 05:07 WBC 30.7 H* (4.8-10.8) X10*3/uL Hgb 13.6 L (14.0-18.0) g/dl Hct 39.5 L (42.0-52.0) % Plt Count 105 L (160-400) X10*3/uL BMP 02/11/22 05:07 Sodium 139 Potassium 4.7 Chloride 96 Carbon Dioxide 24 BUN 53 H Creatinine 9.57 H* Calcium 9.5 D Cardiac Enzymes 02/11/22 Range/Units 05:07 Total Creatine Kinase 110 (38-174) U/L Urine 02/11/22 Range/Units 05:54 Urine Color DK YELLOW Urine Appearance HAZY Urine pH 8.0 (5.0-8.0) Ur Specific [place] 1.015 (1.005-1.025) Urine Protein 3+ H (NEG-TRACE) MG/DL Urine Glucose (UA) NEG (NEG) MG/DL Noncontrast head CT did not reveal any significant abnormality Assessment and Plan (1) Encephalopathy: Status: Acute 71 years old man with underlying history of end-stage renal disease presented w ith unresponsiveness. Clinical examination was suggestive of status epilepticus. Etiology was unclear. At this time my recommendation was to give him a dose of Keppra. Because of significant leukocytosis encephalitis would be a possibility. A lumbar puncture if possible is recommended to confirm and define meningoencephalitis in the meantime I would recommend at least acyclovir to cover for herpes encephalitis. An EEG is also recommended. Procedures Date of Service Date of Service: 02/11/22
--- NOTE | 2022-02-11 14:38 | PM.CNNEP ---
History of Present Illness Reason for Consult Consult date: 02/11/22 Reason for consult: ESRD care Chief Complaint Chief complaint: confusion History of Present Illness Narrative: Mariana is known to me for many years, for history of ESRD secondary to diabetic nephropathy on intermittent hemodialysis at the [facility] on Tuesday unfortunately noncompliant and he only stays 2 hours for therapy which time who was brought into the emergency room by ambulance as he was noted to be vomiting and shaking at home just prior to arrival. As per history in record, The patient is currently unable to provide a history and hence, it is obtained from the patients daughter Sloane (@ [phone]). She reports that the patient lives with her mother who relays the information to her. She states that she took her father to dialysis on Tuesday (2 days prior to admission) and at that point he appeared to be weak. He was not eating his usual amount of food for a day before this. There are no reports of fevers/chills. No reports of diarrhea, abdominal pain. His nausea/vomiting started just prior to arrival. During the vomiting episode -- he was found to be shaking and reportedly had a facial droop. He was conscious but non-verbal. 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 Upon arrival to the ED, the patient underwent basic work up and imaging studies. His CT brain was negative. His CXR showed patchy L bibasilar / retrocardiac opacities which may be due to pneumonia/aspiration. His initial vitals in the ED were 114/55-97 on 2L with a normal RR and a normal temp. CBCD showed 30/13.6/39.5/105; His HS trop-I was in the 300s with repeat decreased slightly. He was given IV vancomcyin/zosyn and admission was requested. Patient has remained hypoxic in the emergency room as low as the 70s subsequently put on a nonrebreather mask high flow oxygen his oxygenation is up above 90s, is being evaluated by the ICU team for potential transfer to critical care unit seen by hospital medicine neurology concern for seizure and aspiration started on IV Keppra for seizure and IV antibiotics for pneumonia. Renal team has been consulted for evaluation as he is due for dialysis today. Review of Systems Review of Systems Unable to obtain due to altered mental status PMFSH Past Medical History Medical History CHF (congestive heart failure) Cholelithiasis End stage renal disease End stage renal disease Hypercholesteremia Thoracotomy scar of right chest Surgical History Surgical History S/P thoracotomy Social History Social History Household Members: Unknown / Unable to assess Unable to assess alcohol history related to: Unknown and Refusing to respond Alcohol intake: unknown Patient Tobacco Use Status: Tobacco use Unknown Cigarette Packs Per Day: 1 Use of substances other than those prescribed or required for medical reasons: Unknown Advance Directives: No Advance Directives Information Provided: No service: No Current occupational status: disabled Current occupation: [employer] Allergies Allergy/AdvReac Type Severity Reaction Status Date / Time No Known Allergies Allergy Mild NA Verified 10/30/21 11:02 Active Medications: Current Medications Ampicillin Sodium/Sulbactam (Sodium 3 gm/ Sodium Chloride) 100 mls @ 200 mls/hr IV Q24H [facility] Acyclovir Sodium 600 mg/ (Sodium Chloride) 262 mls @ 262 mls/hr IV Q24H [facility] Pharmacy Consult (Consult Rx Vancomycin Dosing) 1 each MISCELLANE DAILY PRN PRN Reason: Consult order Sodium Chloride (0.9 % Sodium Chloride Flush 3 Ml Syringe) 3 ml IVFLUSH QSHIFT [facility] Home Medications Medication Instructions Recorded Confirmed Last Taken Type carvedilol 12.5 mg tablet 12.5 mg PO BID 08/18/20 02/11/22 Unknown History clonidine HCl 0.1 mg tablet 0.1 mg PO TID 08/18/20 02/11/22 Unknown History doxepin 25 mg capsule 25 mg PO BEDTIME 08/18/20 02/11/22 Unknown History levetiracetam 250 mg tablet 250 mg PO TUTHSA@1700 08/18/20 02/11/22 Unknown History levetiracetam 500 mg tablet 500 mg PO DAILY@1700 08/18/20 02/11/22 Unknown History pantoprazole 40 mg tablet,delayed 40 mg PO DAILY 08/18/20 02/11/22 Unknown History release amlodipine 10 mg tablet 1 tab PO DAILY 02/11/22 02/11/22 Unknown History diphenhydramine HCl 25 mg capsule 1 cap PO TID PRN 02/11/22 02/11/22 Unknown History fluticasone propionate 50 2 spray INTRANASAL DAILY PRN 02/11/22 02/11/22 Unknown History mcg/actuation nasal spray,suspension lidocaine-prilocaine 2.5 %-2.5 % 1 appl TOPICAL TUTHSA 02/11/22 02/11/22 Unknown History topical cream lisinopril 20 mg tablet 1 tab PO DAILY 02/11/22 02/11/22 Unknown History oxycodone-acetaminophen 5 mg-325 1 tab PO Q8H PRN 02/11/22 02/11/22 Unknown History mg tablet vitamin B complex and vitamin C 1 cap PO QAM 02/11/22 02/11/22 Unknown History no.20-folic acid 1 mg capsule (Triphrocaps) Physical Exam Vital Signs: Last Vital Signs Temp 97.7 F 02/11/22 05:56 Pulse 58 02/11/22 12:02 Resp 14 02/11/22 12:09 BP 98/42 L 02/11/22 12:02 Pulse Ox 100 02/11/22 12:02 BMI result Body Mass Index 27.4 Lethargic but arousable, Oral dry mucosa oxygen via facial mask Decreased breath sounds on the chest S1-S2 distant Abdomen soft positive bowel sounds Extremities 1+ ankle edema left upper extremity well-developed AV fistula positive thrill and bruit Neurologic lethargic Results Lab Results Result Diagrams: 02/11/22 05:07 02/11/22 05:07 Lab results: Chemistry 02/11/22 05:07 Sodium 139 Potassium 4.7 Carbon Dioxide 24 BUN 53 H Creatinine 9.57 H* Calcium 9.5 D Hematology 02/11/22 05:07 WBC 30.7 H* Hgb 13.6 L Plt Count 105 L Urinalysis 02/11/22 05:54 Urine Color DK YELLOW Urine Appearance HAZY Urine pH 8.0 Ur Specific [place] 1.015 Urine Protein 3+ H Urine Glucose (UA) NEG Urine Ketones NEG Urine Blood 2+ H Urine Nitrite NEG Ur Leukocyte Esterase NEG Urine RBC 5-9 H Urine WBC 1-4 Ur Squamous Epith Cells 1+ Assessment and Plan (1) End stage renal disease: Status: Acute (2) Leukocytosis: Status: Acute (3) Encephalopathy: Status: Acute Plan Samuel is a very pleasant 71-year-old gentleman known to our service for 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 He is admitted to [facility] for evaluation of change in mental status concern for seizure disorder found to have infiltrate in his lungs as well as leukocytosis consistent with possible aspiration pneumonia found in lactic acidosis. ESRD status we will go ahead and arrange for dialysis treatment today. Orders placed dialysis nurse aware. Volume status appears hypervolemic we will go ahead and gently remove fluids as tolerated by blood pressure. Leukocytosis concern for aspiration pneumonia I agree with IV antibiotics dose for intermittent hemodialysis. Blood cultures sent if positivity consider further CT imaging of the chest and abdomen. Encephalopathy question of seizures and uremia related to noncompliance with both dialysis and outpatient antiseizure Keppra medication we will go ahead and plan for dialysis and agree with their ICU neurology hospital team to load him with IV Keppra. Once he is dialyzed appropriately expect his mental status to improve. if no improvement consider EEG annd MRI Brain. Resume outpatient medication regimen once he is awake and able to eat continue his phosphate binders. Regarding antihypertensives we will continue to monitor blood pressure closely and resume antihypertensives as blood pressure allows. Thank you for allowing us to be part of his care. Procedures Date of Service Date of Service: 02/11/22
--- NOTE | 2022-02-11 15:17 | PM.EVENT ---
Event Note Date of Service: 02/11/22 Event Note: Update: Patient found to be bacteremic with GPC -- will change from IV unasyn to IV zosyn; to continue vancomcyin (pharmacy to dose pending level post dialysis). Additionally, d/w Dr. Delgadillo ---> no improvement with IV keppra, hence will need to rule out herpes meningoencephalitis; unfortunately, his INR is elvated and his hypoxia is significant. I do not feel it can be safely done (d/w Dr. Porras from IR and he agrees). Will empirically cover with IV acyclovir
--- NOTE | 2022-02-11 15:19 | PC.NURSE ---
PT'S FAMILY IN TO SEE PT. AWARE OF PT'S CONDITION. HIGH FLOW O2 MAINTAINED
--- NOTE | 2022-02-11 15:53 | PC.NURSE ---
made aware of low BP. Plan had been for patient to receive dialysis but this plan was discussed with as pt would need to leave the unit for dialysis. Currently Md will order albumin and will re-assess appropriateness for dialysis at that time.
[2022-02-11] MEDS: Albumin Human 25 % 100 ML IV ×3 (16:09→21:14)
[2022-02-11] MEDS: 0.9 % Sodium Chloride Flush 3 ML SYRINGE IVFLUSH (16:12)
--- NOTE | 2022-02-11 17:08 | PM.EVENT ---
Event Note Date of Service: 02/11/22 Event Note: Patient's blood pressure now decreasing. IV albumin ordered. case d/w nephrology + critical care. plan for transfer to ICU.
[2022-02-11] MEDS: Piperacillin Sodium/Tazobactam 2.25 GM in 0.9 % Sodium Chloride 50 ML IV (17:52)
--- NOTE | 2022-02-11 18:02 | PC.NURSE ---
Report given to [facility] with plans to transfer to unit. BP impriving after 2 doses of albumin. Mentation remains unchanged from last assessment.
[2022-02-11] MEDS: Phenylephrine HCL 20 MG in 0.9 % Sodium Chloride 250 ML 51.44 MG IVCONT (20:00)
[2022-02-11 20:32] LABS: ABG Base Excess 3.8 mmol/L; ABG HCO3 30 mmol/L (22-26); ABG pCO2 52 mmHg (32-45); ABG pH 7.36 (7.35-7.45); ABG pO2 66 mmHg (83-108)
[2022-02-11 21:42] LABS: ABG Refer to POC result
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
[2022-02-11] MEDS: Etomidate 20 MG/10 ML VIAL IVPUSH (23:40)
[2022-02-11 23:42] LABS: Hematocrit 27.8 % (42.0-52.0); Hemoglobin 9.5 g/dl (14.0-18.0); Mean Corpuscular HGB Conc 34.2 g/dl (31.0-36.0); Mean Corpuscular Hemoglobin 31.1 pg (27.0-33.0); Mean Corpuscular Volume 91.1 fL (80.0-98.0); NRBC Pct Auto 0.3 /100WBC (0.0-0.2); Red Blood Count 3.05 X10*6/uL (4.60-5.80); Red Cell Distribution Width 16.3 % (11.0-16.0)
[2022-02-11] MEDS: propofoL 1,000 MG/100 ML VIAL 8.17 MG IVCONT (23:42)
[2022-02-11 23:48] LABS: White Blood Count 33.2 X10*3/uL (4.8-10.8)
--- NOTE | 2022-02-11 23:52 | P.PCNCC_ITS ---
Procedures Date of Service Date of Service: 02/11/22 Intubation Intubation Comments: Patient with acute respiratory distress, refractory to HFNC and multiple attempts to suction, requiring emergent intubation for hypoxemia. Patient intubated with 7.5 cuffed ET tube under glide scope guidance with visualization of vocal cords, without immediate complications. ET tube position verified with Chest XRAY. Consent for Procedure: Emergent-no informed consent obtained Time out performed: Yes Sedative: etomidate Mg given: 20 Laryngoscope: fiber optic video scope ET tube size: 7.5 ET tube uncuffed: No Tube secured depth (cm): 23 Tube secured location: lips Tube placement confirmation: visualized tube passing through cords, equal breath sounds bilaterally, no breath sounds over epigastrium and confirmation by capn ometry Patient tolerated procedure: well and no complications Intubation complications: none
--- NOTE | 2022-02-11 23:55 | W.PM.CCHP ---
Procedures Date of Service Date of Service: 02/11/22 Central Line Placement Right IJ: Central Line Comments: Patient with poor peripheral access, requiring multiple lab draws and vasopressor.? Central line placed Right internal jugular triple lumen central venous catheter placed in usual sterile conditions under ultrasound guidance for appropriate vascular access without immediate complications. Central line position verified with Chest X-RAY. Consent for Procedure: Emergent-no informed consent obtained Time out performed: Yes Sterile Technique Used: Yes Patient placed on monitor/pulse ox: Yes MD prep: mask, gown and gloves Central line prep: Chlorhexidine scrub Local anesthesia used: other anesthetic (On prop ) Ultrasound used for placement: Yes Central line lumen inserted: triple Post procedure: sutured in place, good blood return, all ports aspirated, flushed, capped and sterile dressing applied Post procedure x-ray: tip of catheter in good position and no pneumothorax seen Patient tolerated procedure: well and no complications Complications: none
[2022-02-12] VITALS (35 sets, daily range): BP systolic 81–116; BP diastolic 37–52; PULSE 37–75; RESP 15–34; TEMP 32–36.8; O2SAT 58–98; BMI 26.1
[2022-02-12 00:04] LABS: Anion Gap 21 (12-20); Blood Urea Nitrogen 75 mg/dL (9-16); Calcium 9.1 mg/dL (8.4-10.2); Carbon Dioxide 28 mmol/L (22-29); Chloride 97 mmol/L (96-108); Creatinine Clr Calc Pharmacy 5.2; Estimated Glomerular Filt Rate 5; Glucose Random 120 mg/dL (60-115); Potassium 4.4 mmol/L (3.3-5.1); Sodium 142 mmol/L (135-145)
[2022-02-12 00:06] LABS: Platelet Count 79 X10*3/uL (160-400)
[2022-02-12 00:19] LABS: Lactic Acid 1.8 mmol/L (0.5-2.0)
[2022-02-12 00:37] LABS: Band Neutrophils Percent 5 % (3-5); Lymphocytes Absolute Manual 0.7 X10*3/uL (1.2-4.9); Lymphocytes Percent Manual 2 % (20-40); Monocytes Percent Manual 3 % (2-11); Myelocytes Absolute 0.3 X10*/uL; Myelocytes Percent 1 %; Neutrophils Absolute Manual 31.2 X10*3/uL (2.0-8.3); Neutrophils Percent Manual 89 % (45-73); RBC Morphology NOTED
[2022-02-12 00:38] LABS: Large Platelet PRESENT; Macrocytosis 1+ (5-14) /OIF; Platelet Estimate DECREASED (NORMAL); Platelet Morphology Comment NOTED
[2022-02-12 00:39] LABS: Burr Cells 2+ (3-5) /OIF; Target Cells 1+ (5-14) /OIF
[2022-02-12 00:40] LABS: Dohle Bodies PRESENT; Polychromasia 2+ (3-5) /OIF
[2022-02-12 00:41] LABS: Toxic Granulation PRESENT; Toxic Vacuolation PRESENT
[2022-02-12] MEDS: Albumin Human 25 % 100 ML IV (01:18)
[2022-02-12] MEDS: 0.9 % Sodium Chloride Flush 3 ML SYRINGE IVFLUSH ×2 (01:19→08:09)
[2022-02-12] MEDS: Piperacillin Sodium/Tazobactam 2.25 GM in 0.9 % Sodium Chloride 50 ML IV ×4 (01:21→23:11)
--- NOTE | 2022-02-12 01:57 | PC.RT ---
Pt intubate at 2256 on 02/11/2022 with 7.5 ETT @ 23LIP; + EZ cap, Bilateral BS and chest rise, placed on Ventilator AC/VC 18 350 +5 100%. Pt noted to have very large amounts of dark brown secretions in airways.
--- NOTE | 2022-02-12 02:42 | PC.NURSE ---
Pt admitted to ICU 02/11 at 1999. Upon initial assessment- pt alert, attempts to track speaker, but unable to communicate or follow any commands. Non-behavioral restraints initiated d/t pt thrashing and pulling at lines/tubes, non-redirectable. SpO2 70-80s- HFNC titrated to 60L/100%, 15L/100% NRB added with little effect. RT/HAIR CUTTER aware. Pt nasophargyeal suctioned for moderate amount of bloody/brown secretions with some effect on SpO2. At approx 2099, SBP 70s/MAP 40s- phenylephrine gtt ordered and titrated per nov. At 2229, pt again hypoxic despite HFNC/NRB, requiring deep suctioning. Pt neuro status unchanged, unable to maintain airway, decision made to intubate. Etomidate 20 mg IVP given for intubation at 2255. ETT #7.5, 23 cm at lip. Current vent settings- AC/VC 18/350/5/50%. Propofol gtt ordered and titrated per nov, RASS -2/3. Levophed gtt ordered and titrated to maintain MAP > 55 per HAIR CUTTER. TLC to R IJ placed and confirmed by pCXR. 14fr OGT inserted with approx 1000 mL of dark brown output. New order for abd CT, completed without incident. Family updated by HAIR CUTTER and aware of pt status/plan of care.
[2022-02-12 02:55] LABS: Vancomycin Random 17.9 mcg/mL (15-20)
[2022-02-12 05:31] LABS: VBG Base Excess 5.5 mmol/L; VBG HCO3 30 mmol/L (22-26); VBG pCO2 48 mmHg; VBG pH 7.41 (7.32-7.43); VBG pO2 51 mmHg
[2022-02-12 05:36] LABS: Hematocrit 27.6 % (42.0-52.0); Hemoglobin 9.7 g/dl (14.0-18.0); Mean Corpuscular HGB Conc 35.1 g/dl (31.0-36.0); Mean Corpuscular Hemoglobin 31.2 pg (27.0-33.0); Mean Corpuscular Volume 88.7 fL (80.0-98.0); Mean Platelet Volume 10.8 fL (9.4-12.4); NRBC Pct Auto 0.3 /100WBC (0.0-0.2); Red Blood Count 3.11 X10*6/uL (4.60-5.80); Red Cell Distribution Width 16.3 % (11.0-16.0); White Blood Count 29.7 X10*3/uL (4.8-10.8)
[2022-02-12 05:39] LABS: Platelet Count 89 X10*3/uL (160-400)
[2022-02-12 06:08] LABS: Alanine Aminotransferase 27 U/L (0-40); Albumin Level 3.1 g/dL (3.5-5.0); Alkaline Phosphatase 309 U/L (39-117); Anion Gap 25 (12-20); Aspartate Amino Transferase 42 U/L (5-37); Bilirubin Total 3.4 mg/dL (0.0-1.0); Blood Urea Nitrogen 82 mg/dL (9-16); Calcium 9.3 mg/dL (8.4-10.2); Carbon Dioxide 26 mmol/L (22-29); Chloride 94 mmol/L (96-108); Creatinine Clr Calc Pharmacy 5.1; Estimated Glomerular Filt Rate 5; Glucose Random 102 mg/dL (60-115); Magnesium 2.3 mg/dL (1.6-2.6); Phosphorus 5.1 mg/dL (2.7-4.5); Sodium 141 mmol/L (135-145); Total Protein 5.5 g/dL (6.5-8.0)
[2022-02-12] MEDS: propofoL 1,000 MG/100 ML VIAL 8.17 MG IVCONT (06:24)
[2022-02-12] MEDS: Pantoprazole Sodium 40 MG/10 ML VIAL IVPUSH ×2 (06:24→18:07)
[2022-02-12 06:38] LABS: Band Neutrophils Percent 11 % (3-5); Lymphocytes Percent Manual 17 % (20-40); Monocytes Absolute Manual 1.5 X10*3/uL (0.1-1.2); Monocytes Percent Manual 5 % (2-11); Neutrophils Absolute Manual 23.2 X10*3/uL (2.0-8.3); Neutrophils Percent Manual 67 % (45-73)
[2022-02-12 06:41] LABS: RBC Morphology NOTED
[2022-02-12 06:42] LABS: Macrocytosis 2+ (15-30) /OIF; Ovalocytes 1+ (5-14) /OIF; Platelet Estimate SLIGHTLY DECREASED (NORMAL); Target Cells 2+ (15-30) /OIF
[2022-02-12 06:44] LABS: Dohle Bodies PRESENT; Toxic Granulation PRESENT
[2022-02-12 07:21] LABS: Venous Blood Gas Refer to POC result
[2022-02-12] MEDS: Chlorhexidine Gluc Oral Rinse 15 ML MOUTHWASH BUCCAL ×3 (08:10→21:25)
--- NOTE | 2022-02-12 08:32 | PM.GICN ---
History of Present Illness Data of Consult Service Date: 02/12/22 Requesting physician: Ishmael Liriano Primary Care Provider: Freida Benedict MD HPI Reason for consult: abn imaging, gastric thickening 71 yr old m with ESRD, on HD, who I am asked to see for assessment for abn imaging He initially presented with suspected seizure and then found ot be bacteremic with GPC. He also became severely hypoxic and hypotensive and required emergent intubation with admission to ICU. He had brownish liquid material thru the Og tube. Per nurse no melena or rectal bleeding since been in ICU. He had Ct scan which revealed thickened gastric antrum, ?gastritis or infiltrative disease, enlarged retroperitoneal LN, atrophic kidneys He had an EGD 2018 with submucosal swelling noted at the posterior antrum which was biopsed by Dr Quinn and revealed chronic inflammation Review of Systems Review of Systems: Yes unobtainable due to endotracheal tube, Unobtainable due to mental condition and Unobtainable due to mental status PMFSH Past Medical History Medical History CHF (congestive heart failure) Cholelithiasis End stage renal disease End stage renal disease Hypercholesteremia Thoracotomy scar of right chest Family History Pertinent family history: unable to assess due to mental status Surgical History Surgical History S/P thoracotomy Social History Social History Household Members: Family Housing: House Do you presently have visiting nurse or other home services: No Unable to assess alcohol history related to: Unknown Alcohol intake: unknown Patient Tobacco Use Status: Tobacco use Unknown Cigarette Packs Per Day: 1 service: No Current occupational status: disabled Current occupation: Rt handed Meds Allergies Allergy/AdvReac Type Severity Reaction Status Date / Time No Known Allergies Allergy Mild NA Verified 10/30/21 11:02 Active Medications: Current Medications Chlorhexidine Gluconate (Chlorhexidine Gluc Oral Rinse 15 Ml Mouthwash) 15 ml BUCCAL TID [facility] Last Admin: 02/12/22 08:10 Dose: 15 ml Documented by: Piperacillin Sod/Tazobactam (Sod 2.25 gm/ Sodium Chloride) 50 mls @ 100 mls/hr IV Q8H [facility] Last Admin: 02/12/22 08:09 Dose: 100 mls/hr Documented by: Phenylephrine HCl 20 mg/ (Sodium Chloride) 252 mls @ 0 mls/hr IVCONT .Q0M [facility]; Protocol Last Titration: 02/12/22 01:58 Dose: Infused Documented by: Propofol (Diprivan) 1,000 mg in 100 mls @ 0 mls/hr IVCONT .Q0M [facility]; Protocol Last Titration: 02/12/22 08:11 Dose: 15 mcg/kg/min, 6.12 mls/hr Documented by: Norepinephrine Bitartrate (Levophed) 8 mg in 250 mls @ 0 mls/hr IVCONT .Q0M [facility]; Protocol Last Titration: 02/12/22 03:00 Dose: 0.13 mcg/kg/min, 16.59 mls/hr Documented by: Lidocaine HCl (Lidocaine Hcl 1 % Mpf 2 Ml Ampul) 0.5 ml SUBCUT TUTA@1645 [facility] Last Admin: 02/11/22 18:02 Dose: Not Given Documented by: Pantoprazole Sodium (Pantoprazole Sodium 40 Mg/10 Ml Vial) 40 mg IVPUSH BID@0630,1630 [facility] Last Admin: 02/12/22 06:24 Dose: 40 mg Documented by: Pharmacy Consult (Consult Rx Vancomycin Dosing) 1 each MISCELLANE DAILY PRN PRN Reason: Consult order Sodium Chloride (0.9 % Sodium Chloride Flush 3 Ml Syringe) 3 ml IVFLUSH QSHIFT [facility] Last Admin: 02/12/22 08:09 Dose: 3 ml Documented by: Home Medications Medication Instructions Recorded Confirmed Last Taken Type carvedilol 12.5 mg tablet 12.5 mg PO BID 08/18/20 02/11/22 Unknown History clonidine HCl 0.1 mg tablet 0.1 mg PO TID 08/18/20 02/11/22 Unknown History doxepin 25 mg capsule 25 mg PO BEDTIME 08/18/20 02/11/22 Unknown History levetiracetam 250 mg tablet 250 mg PO TUTHSA@1700 08/18/20 02/11/22 Unknown History levetiracetam 500 mg tablet 500 mg PO DAILY@1700 08/18/20 02/11/22 Unknown History pantoprazole 40 mg tablet,delayed 40 mg PO DAILY 08/18/20 02/11/22 Unknown History release amlodipine 10 mg tablet 1 tab PO DAILY 02/11/22 02/11/22 Unknown History diphenhydramine HCl 25 mg capsule 1 cap PO TID PRN 02/11/22 02/11/22 Unknown History fluticasone propionate 50 2 spray INTRANASAL DAILY PRN 02/11/22 02/11/22 Unknown History mcg/actuation nasal spray,suspension lidocaine-prilocaine 2.5 %-2.5 % 1 appl TOPICAL TUTHSA 02/11/22 02/11/22 Unknown History topical cream lisinopril 20 mg tablet 1 tab PO DAILY 02/11/22 02/11/22 Unknown History oxycodone-acetaminophen 5 mg-325 1 tab PO Q8H PRN 02/11/22 02/11/22 Unknown History mg tablet vitamin B complex and vitamin C 1 cap PO QAM 02/11/22 02/11/22 Unknown History no.20-folic acid 1 mg capsule (Triphrocaps) Physical Exam Vital Signs: Vital Signs: Last Vital Signs Temp 97.3 F 02/12/22 08:00 Pulse 61 02/12/22 08:00 Resp 18 02/12/22 08:00 BP 95/43 L 02/12/22 08:00 Pulse Ox 97 02/12/22 08:00 BMI result Body Mass Index 26.1 Const: Other: Constitutional - intubated Eyes - spontaneous eye movements; pupils constricted, but reactive Cardiovascular - S1S2, RRR, No edema Respiratory - Poor air entry bilaterally with scattered rhonchi Gastrointestinal - non-distended with hypoactive BS - No CVA tenderness Extremities - no calf tenderness bilaterally, no swelling Musculoskeletal - Normal inspection, normal ROM Skin - Warm/Dry Neurological - sedated and inutbated General: ill appearing Limitations: altered mental status Eyes: General: appearance normal, both eyes and all related structures Neck: Other: supple Neck: Yes normal visual inspection Chest: Chest palpation & inspection: normal inspection of the chest Resp: Auscultation: clear to auscultation bilaterally Skin: General skin exam: no rashes or lesions noted Results Labs CBC & Chem 7: 02/12/22 05:23 02/12/22 05:23 Labs: Short CBC 02/11/22 02/12/22 Range/Units 23:35 05:23 WBC 33.2 H* 29.7 H (4.8-10.8) X10*3/uL Hgb 9.5 L D 9.7 L (14.0-18.0) g/dl Hct 27.8 L D 27.6 L (42.0-52.0) % Plt Count 79 L 89 L (160-400) X10*3/uL BMP 02/11/22 02/12/22 23:35 05:23 Sodium 142 141 Potassium 4.4 4.0 Chloride 97 94 L Carbon Dioxide 28 26 BUN 75 H 82 H Creatinine 10.75 H* 10.90 H* Calcium 9.1 9.3 Liver Function 02/12/22 Range/Units 05:23 Total Bilirubin 3.4 H (0.0-1.0) mg/dL AST 42 H D (5-37) U/L ALT 27 (0-40) U/L Alkaline Phosphatase 309 H D (39-117) U/L Albumin 3.1 L D (3.5-5.0) g/dL Microbiology Microbiology Results: Microbiology 02/11/22 05:55 Blood - Venous Blood Culture - Preliminary Prelim: GPC Gram Stain only 02/11/22 05:54 Blood - Venous Blood Culture - Preliminary Prelim: GPC Gram Stain only Imaging CT scan - abdomen: Attestation: I personally reviewed and interpreted this imaging study as follows: My impression: thickened contracted stomach, debris and fluid in stomach, OG tube noted Assessment and Plan (1) Gastric wall thickening: Status: Acute Plan 1/ abn imaging with thickened gastric wall with enlarged LN, may be infectious or infiltrative e.g malignant etiology e.g GISt, adenoca, right now main issue is the bacteremia and his acute resp failure, AMS PLAN: 1/ Would make sure he is on PPI, can add carafate as well 2/ Once acute issues are improved we can consider EGD for further assessment and bx Procedures Date of Service Date of Service: 02/12/22
--- NOTE | 2022-02-12 08:43 | P.CDIC_ITS ---
CDI Concurrent Query Documentation Clarification: PHYSICIAN'S DOCUMENTATION REQUEST Date of Query: 02/12/22 0843 Patient Name: Samuel Greenfield Admit Date: 02/11/22 Dear Doctor, A review of the medical record indicates additional documentation may be indicated. Please review below and update the documentation accordingly. Clinical Indicators: Risk Factors/Clinical Indicators/Treatments Wound care notes 02/12 - Pressure injury Stage II coccyx. wound open to air, barrier cream applied. Based on the above, could you please provide, in the Progress Notes, further information regarding the ulcer/wound: * If a pressure ulcer, please also include the stage* of the ulcer: * Stage 1 - Skin intact, non-blanchable redness * Stage 2 - Partial thickness loss of dermis, includes intact or open blister * Stage 3 - Full thickness tissue not including bone, tendon, or muscle * Stage 4 - Full thickness tissue loss, including exposed bones, tendon, or muscle * Unstageable * Unable to determine *Source: National Pressure Ulcer Advisory Panel (NPUAP) Use of terms such as suspected, likely, concern for, or probable (associated with a specific diagnosis that is being evaluated, monitored, or treated as if it exists) are acceptable and can be coded in the inpatient setting, when documented at the time of discharge. Thank you, Conchita De Guzman [facility], CDIS Extension: [phone] Please use your independent medical judgment in providing your response. THIS QUERY IS PART OF THE PERMANENT MEDICAL RECORD
--- NOTE | 2022-02-12 09:42 | P.PNNP_ITS ---
Subjective Subjective Date of Service: 02/12/22 Principal diagnosis: ESRD patient hypoxic and respiratory failure aspiration pneumonia. Interval history: Patient remains intubated on mechanical ventilation 35% FiO2 continues on Levophed vasopressor support, Physical Exam Vital Signs: Vital Signs: Last Vital Signs Temp 97.3 F 02/12/22 08:00 Pulse 64 02/12/22 09:00 Resp 18 02/12/22 09:00 BP 116/52 L 02/12/22 09:00 Pulse Ox 97 02/12/22 09:00 BMI result Body Mass Index 26.1 Intubated sedated on mechanical ventilation in critical care unit Decreased breath sounds in the bases S1-S2 Abdomen soft Extremities no edema noted left upper extremity well-developed AV fistula positive thrill and a bruit. Objective Data Labs CBC & Chem 7: 02/12/22 05:23 02/12/22 05:23 Labs: Laboratory Results - last 24 hr 02/11/22 02/11/22 02/11/22 11:14 20:24 21:09 WBC RBC Hgb Hct MCV MCH MCHC RDW Plt Count MPV Immature Gran % (Auto) Neut % (Auto) Lymph % (Auto) Luna % (Auto) Eos % (Auto) Baso % (Auto) Lymph # (Auto) Luna # (Auto) Eos # (Auto) Baso # (Auto) Abs Immat Gran (auto) Absolute Neuts (auto) Absolute Nucleated RBC Nucleated RBC % (auto) Neutrophils % (Manual) Band Neutrophils % Lymphocytes % (Manual) Monocytes % (Manual) Myelocytes % Abs Neuts (Manual) Lymphocytes # (Manual) Monocytes # (Manual) Myelocytes # Toxic Granulation Toxic Vacuolation Dohle Bodies Platelet Estimate Large Platelets Plt Morphology Comment RBC Morphology Polychromasia Macrocytosis Target Cells Ovalocytes [place] Cells O2 Saturation 87.0 ABG pH at Pt Temp 7.36 ABG pCO2 at Pt Temp 52 H ABG pO2 at Pt Temp 66 L ABG HCO3 30 H ABG Base Excess (Actual) 3.8 VBG pH VBG pCO2 VBG pO2 VBG HCO3 VBG O2 Saturation VBG Base Excess Sodium Potassium Chloride Carbon Dioxide Anion Gap BUN Creatinine Estim Creat Clear Calc Estimated GFR Random Glucose Lactic Acid Lactic Acid F/U @ 4Hr 3.0 H* Calcium Phosphorus Magnesium Total Bilirubin AST ALT Alkaline Phosphatase Total Protein Albumin Random Vancomycin 17.9 02/11/22 02/11/22 02/11/22 23:35 23:35 23:59 WBC 33.2 H* RBC 3.05 L D Hgb 9.5 L D Hct 27.8 L D MCV 91.1 MCH 31.1 MCHC 34.2 RDW 16.3 H Plt Count 79 L MPV 11.0 Immature Gran % (Auto) Cancelled Neut % (Auto) Cancelled Lymph % (Auto) Cancelled Luna % (Auto) Cancelled Eos % (Auto) Cancelled Baso % (Auto) Cancelled Lymph # (Auto) Cancelled Luna # (Auto) Cancelled Eos # (Auto) Cancelled Baso # (Auto) Cancelled Abs Immat Gran (auto) Cancelled Absolute Neuts (auto) Cancelled Absolute Nucleated RBC 0.090 H Nucleated RBC % (auto) 0.3 H Neutrophils % (Manual) 89 H Band Neutrophils % 5 Lymphocytes % (Manual) 2 L Monocytes % (Manual) 3 Myelocytes % 1 Abs Neuts (Manual) 31.2 H Lymphocytes # (Manual) 0.7 L Monocytes # (Manual) 1.0 Myelocytes # 0.3 Toxic Granulation PRESENT Toxic Vacuolation PRESENT Dohle Bodies PRESENT Platelet Estimate DECREASED Large Platelets PRESENT Plt Morphology Comment NOTED RBC Morphology NOTED Polychromasia 2+ (3-5) Macrocytosis 1+ (5-14) Target Cells 1+ (5-14) Ovalocytes [place] Cells 2+ (3-5) O2 Saturation ABG pH at Pt Temp ABG pCO2 at Pt Temp ABG pO2 at Pt Temp ABG HCO3 ABG Base Excess (Actual) VBG pH VBG pCO2 VBG pO2 VBG HCO3 VBG O2 Saturation VBG Base Excess Sodium 142 Potassium 4.4 Chloride 97 Carbon Dioxide 28 Anion Gap 21 H BUN 75 H Creatinine 10.75 H* Estim Creat Clear Calc 5.2 Estimated GFR 5 Random Glucose 120 H Lactic Acid 1.8 Lactic Acid F/U @ 4Hr Calcium 9.1 Phosphorus Magnesium Total Bilirubin AST ALT Alkaline Phosphatase Total Protein Albumin Random Vancomycin 02/12/22 02/12/22 02/12/22 05:23 05:23 05:23 WBC 29.7 H RBC 3.11 L Hgb 9.7 L Hct 27.6 L MCV 88.7 MCH 31.2 MCHC 35.1 RDW 16.3 H Plt Count 89 L MPV 10.8 Immature Gran % (Auto) Cancelled Neut % (Auto) Cancelled Lymph % (Auto) Cancelled Luna % (Auto) Cancelled Eos % (Auto) Cancelled Baso % (Auto) Cancelled Lymph # (Auto) Cancelled Luna # (Auto) Cancelled Eos # (Auto) Cancelled Baso # (Auto) Cancelled Abs Immat Gran (auto) Cancelled Absolute Neuts (auto) Cancelled Absolute Nucleated RBC 0.100 H Nucleated RBC % (auto) 0.3 H Neutrophils % (Manual) 67 Band Neutrophils % 11 H Lymphocytes % (Manual) 17 L Monocytes % (Manual) 5 Myelocytes % Abs Neuts (Manual) 23.2 H Lymphocytes # (Manual) 5.0 H Monocytes # (Manual) 1.5 H Myelocytes # Toxic Granulation PRESENT Toxic Vacuolation Dohle Bodies PRESENT Platelet Estimate SLIGHTLY DECREASED Large Platelets Plt Morphology Comment Not Reportable RBC Morphology NOTED Polychromasia Macrocytosis 2+ (15-30) Target Cells 2+ (15-30) Ovalocytes 1+ (5-14) [place] Cells O2 Saturation ABG pH at Pt Temp ABG pCO2 at Pt Temp ABG pO2 at Pt Temp ABG HCO3 ABG Base Excess (Actual) VBG pH 7.41 VBG pCO2 48 VBG pO2 51 VBG HCO3 30 H VBG O2 Saturation 77.0 VBG Base Excess 5.5 Sodium 141 Potassium 4.0 Chloride 94 L Carbon Dioxide 26 Anion Gap 25 H BUN 82 H Creatinine 10.90 H* Estim Creat Clear Calc 5.1 Estimated GFR 5 Random Glucose 102 Lactic Acid Lactic Acid F/U @ 4Hr Calcium 9.3 Phosphorus 5.1 H Magnesium 2.3 Total Bilirubin 3.4 H AST 42 H D ALT 27 Alkaline Phosphatase 309 H D Total Protein 5.5 L D Albumin 3.1 L D Random Vancomycin Blood Culture (First) Preliminary 02/11/22-1526 Gram stain results: Gram-positive cocci in pairs and short chains 2 sets positive/2 sets drawn Microbiology Microbiology Results: Microbiology 02/11/22 05:55 Blood - Venous Blood Culture - Preliminary Prelim: GPC Gram Stain only 02/11/22 05:54 Blood - Venous Blood Culture - Preliminary Prelim: GPC Gram Stain only Procedures Date of Service Date of Service: 02/12/22 Assessment & Plan Assessment and plan (1) End stage renal disease: Status: Acute (2) Encephalopathy: Status: Acute (3) Leukocytosis: Status: Acute (4) Bacteremia: Status: Acute Plan Samuel is a very pleasant 71-year-old gentleman with 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 Admitted with hypoxic respiratory failure in the setting of seizure and aspiration pneumonia lactic acidosis leukocytosis noted. Presenting with septic shock Gram-positive cocci in clusters and chains bacteremia, ESRD patient's last dialysis treatment on Tuesday for 2 hours we will go ahead and resume dialysis via left upper extremity AV fistula today for metabolic clearance, fortunately volume is not an issue we will run even during the treatment today. As discussed with ICU will monitor closely for further dialysis needs.Will reassess for dialysis plans tomorrow as well. Aspiration pneumonia continue with IV antibiotics dose for intermittent hemodialysis, respiratory failure on mechanical ventilation appreciate ICU team care. Regarding sepsis looking for source could consider expansion of work-up by imaging chest and abdomen. Electrolytes reviewed medications reviewed hopefully will be able to be weaned off the pressors today. Continue to monitor labs as per ICU protocol. Time Spent With Patient Time: Total time spent is greater than 50% in coordination of care (as documented) at patient's floor/unit and/or counseling patient: Progress Note: Quality Stroke Does the patient have a stroke diagnosis?: No
--- NOTE | 2022-02-12 12:06 | PHA.PROG ---
Admission Date/Time: February 11, 2022 09:17 Indication:Bacteremia Weight in k.7 kg Serum Creatinine - Last 168 Hours 02/11/22 02/11/22 02/12/22 05:07 23:35 05:23 Creatinine 9.57 H* 10.75 H* 10.90 H* Estimated CrCl and GFR - Last 168 Hours 02/11/22 02/11/22 02/12/22 05:07 23:35 05:23 Estim Creat Clear Calc 5.9 5.2 5.1 Estimated GFR 5 5 5 Vancomycin Loading Dose: vancomycin 1,250 mg administered 02/11 @ 0709 Current Vancomycin Dosing Regimen: Vancomycin dosing by level in collaboration with provider. Next dose of vancomycin 1,000 mg scheduled as one time dose on 02/12 @ 1800 after dialysis. Date and Time for next Vancomycin Level to be drawn: Random vancomycin level 17.9 mCg/mL on 02/11 @ 2100. No HD on 02/11. No need for level today after discussion with Dr Liriano. Next level scheduled for Sat 02/13 @ 1600 after dialysis. Level ordered and will be used to guide dosing if therapy continues. Pharmacist Comments on Vancomycin Plan: Will continue empiric vancomycin therapy while awaiting C&S result. Preliminary blood culture results identified Grp B Strep. The current plan is for HD on Tue & Sat. Jyoti Monge, MakennaD, BCPS, BCCCP [phone]
--- NOTE | 2022-02-12 13:17 | PM.CCPN ---
Subjective Subjective Date of Service: 02/12/22 Interval History: 71-year-old gentleman with underlying history of thoracotomy a for hydropneumothorax, seizure disorder, end-stage renal disease hemodialysis admitted on 02/11/2022 with alteration of mental status, vomiting, and shaking chills. On ER evaluation patient was noted to have leukocytosis with significant hypoxemia. He was started on broad-spectrum antibiotics and initially admitted to [facility]. Later the same day patient became hypotensive and more hypoxic requiring transfer to intensive care unit with intubation for acute hypoxic respiratory failure and initiation of vasopressor support. His blood cultures grew Gram-positive cocci. No events overnight. Critical Care Time (minutes): 45 Physical Exam Vital Signs: Vital Signs: Last Vital Signs Temp 96.6 F L 02/12/22 12:00 Pulse 61 02/12/22 13:00 Resp 18 02/12/22 13:00 BP 97/42 L 02/12/22 13:00 Pulse Ox 96 02/12/22 13:00 BMI result Body Mass Index 26.1 Const: General: no acute distress and other (Sedated on the vent, poor arousal with sedation vacation) Eyes: Sclerae: sclerae normal EOM: EOMs intact bilaterally Neck: Neck: Yes no lymphadenopathy, Yes trachea midline and Yes supple Resp: Auscultation: crackles (Bibasilar) Cardio: Rate: regular rate Rhythm: regular rhythm Heart sounds: no gallops, no murmurs and no rubs GI: Palpation (GI): Soft to palpation and Other GI palpation findings present ( Nontender) Auscultation: normal bowel sounds Extrem: General: No clubbing, No cyanosis and Yes edema (Trace bilateral) Objective Data Labs CBC & Chem 7: 02/12/22 05:23 02/12/22 05:23 Labs: Laboratory Results - last 24 hr 02/11/22 02/11/22 02/11/22 20:24 21:09 23:35 WBC 33.2 H* RBC 3.05 L D Hgb 9.5 L D Hct 27.8 L D MCV 91.1 MCH 31.1 MCHC 34.2 RDW 16.3 H Plt Count 79 L MPV 11.0 Immature Gran % (Auto) Cancelled Neut % (Auto) Cancelled Lymph % (Auto) Cancelled [place] % (Auto) Cancelled Eos % (Auto) Cancelled Baso % (Auto) Cancelled Lymph # (Auto) Cancelled [place] # (Auto) Cancelled Eos # (Auto) Cancelled Baso # (Auto) Cancelled Abs Immat Gran (auto) Cancelled Absolute Neuts (auto) Cancelled Absolute Nucleated RBC 0.090 H Nucleated RBC % (auto) 0.3 H Neutrophils % (Manual) 89 H Band Neutrophils % 5 Lymphocytes % (Manual) 2 L Monocytes % (Manual) 3 Myelocytes % 1 Abs Neuts (Manual) 31.2 H Lymphocytes # (Manual) 0.7 L Monocytes # (Manual) 1.0 Myelocytes # 0.3 Toxic Granulation PRESENT Toxic Vacuolation PRESENT [place]ohle Bodies PRESENT Platelet Estimate DECREASED Large Platelets PRESENT Plt Morphology Comment NOTED RBC Morphology NOTED Polychromasia 2+ (3-5) Macrocytosis 1+ (5-14) Target Cells 1+ (5-14) Ovalocytes [place] Cells 2+ (3-5) O2 Saturation 87.0 ABG pH at Pt Temp 7.36 ABG pCO2 at Pt Temp 52 H ABG pO2 at Pt Temp 66 L ABG HCO3 30 H ABG Base Excess (Actual) 3.8 VBG pH VBG pCO2 VBG pO2 VBG HCO3 VBG O2 Saturation VBG Base Excess Sodium Potassium Chloride Carbon Dioxide Anion Gap BUN Creatinine Estim Creat Clear Calc Estimated GFR Random Glucose Lactic Acid Calcium Phosphorus Magnesium Total Bilirubin AST ALT Alkaline Phosphatase Total Protein Albumin Random Vancomycin 17.9 02/11/22 02/11/22 02/12/22 23:35 23:59 05:23 WBC 29.7 H RBC 3.11 L Hgb 9.7 L Hct 27.6 L MCV 88.7 MCH 31.2 MCHC 35.1 RDW 16.3 H Plt Count 89 L MPV 10.8 Immature Gran % (Auto) Cancelled Neut % (Auto) Cancelled Lymph % (Auto) Cancelled [place] % (Auto) Cancelled Eos % (Auto) Cancelled Baso % (Auto) Cancelled Lymph # (Auto) Cancelled [place] # (Auto) Cancelled Eos # (Auto) Cancelled Baso # (Auto) Cancelled Abs Immat Gran (auto) Cancelled Absolute Neuts (auto) Cancelled Absolute Nucleated RBC 0.100 H Nucleated RBC % (auto) 0.3 H Neutrophils % (Manual) 67 Band Neutrophils % 11 H Lymphocytes % (Manual) 17 L Monocytes % (Manual) 5 Myelocytes % Abs Neuts (Manual) 23.2 H Lymphocytes # (Manual) 5.0 H Monocytes # (Manual) 1.5 H Myelocytes # Toxic Granulation PRESENT Toxic Vacuolation Dohle Bodies PRESENT Platelet Estimate SLIGHTLY DECREASED Large Platelets Plt Morphology Comment Not Reportable RBC Morphology NOTED Polychromasia Macrocytosis 2+ (15-30) Target Cells 2+ (15-30) Ovalocytes 1+ (5-14) [place] Cells O2 Saturation ABG pH at Pt Temp ABG pCO2 at Pt Temp ABG pO2 at Pt Temp ABG HCO3 ABG Base Excess (Actual) VBG pH VBG pCO2 VBG pO2 VBG HCO3 VBG O2 Saturation VBG Base Excess Sodium 142 Potassium 4.4 Chloride 97 Carbon Dioxide 28 Anion Gap 21 H BUN 75 H Creatinine 10.75 H* Estim Creat Clear Calc 5.2 Estimated GFR 5 Random Glucose 120 H Lactic Acid 1.8 Calcium 9.1 Phosphorus Magnesium Total Bilirubin AST ALT Alkaline Phosphatase Total Protein Albumin Random Vancomycin 02/12/22 02/12/22 05:23 05:23 WBC RBC Hgb Hct MCV MCH MCHC RDW Plt Count MPV Immature Gran % (Auto) Neut % (Auto) Lymph % (Auto) [place] % (Auto) Eos % (Auto) Baso % (Auto) Lymph # (Auto) [place] # (Auto) Eos # (Auto) Baso # (Auto) Abs Immat Gran (auto) Absolute Neuts (auto) Absolute Nucleated RBC Nucleated RBC % (auto) Neutrophils % (Manual) Band Neutrophils % Lymphocytes % (Manual) Monocytes % (Manual) Myelocytes % Abs Neuts (Manual) Lymphocytes # (Manual) Monocytes # (Manual) Myelocytes # Toxic Granulation Toxic Vacuolation Dohle Bodies Platelet Estimate Large Platelets Plt Morphology Comment RBC Morphology Polychromasia Macrocytosis Target Cells Ovalocytes [place] Cells O2 Saturation ABG pH at Pt Temp ABG pCO2 at Pt Temp ABG pO2 at Pt Temp ABG HCO3 ABG Base Excess (Actual) VBG pH 7.41 VBG pCO2 48 VBG pO2 51 VBG HCO3 30 H VBG O2 Saturation 77.0 VBG Base Excess 5.5 Sodium 141 Potassium 4.0 Chloride 94 L Carbon Dioxide 26 Anion Gap 25 H BUN 82 H Creatinine 10.90 H* Estim Creat Clear Calc 5.1 Estimated GFR 5 Random Glucose 102 Lactic Acid Calcium 9.3 Phosphorus 5.1 H Magnesium 2.3 Total Bilirubin 3.4 H AST 42 H D ALT 27 Alkaline Phosphatase 309 H D Total Protein 5.5 L D Albumin 3.1 L D Random Vancomycin Microbiology Microbiology Results: Microbiology 02/11/22 05:55 Blood - Venous Blood Culture - Preliminary Strep agalactiae (Grp B) 02/11/22 05:54 Blood - Venous Blood Culture - Preliminary Strep agalactiae (Grp B) Progress Note: A&P Assessment and plan (1) Acute respiratory failure with hypoxia: Status: Acute (2) Ileus: Status: Acute (3) Bacteremia: Status: Acute (4) End-stage renal disease on hemodialysis: Status: Acute (5) Encephalopathy: Status: Acute Plan Assessment: 71-year-old gentleman with underlying ESRD on hemodialysis admitted with Gram-positive bacteremia and acute hypoxic respiratory failure secondary to aspiration on the background of ileus Plan: Neuro: Encephalopathy, septic versus uremic, expect to improve with hemodialysis and improvement in bacteremia. Cardiac: Continue to titrate of pressors as tolerated. Underlying history of congestive heart failure. Pulmonary: Acute hypoxic respiratory failure secondary to aspiration of gastric content on the background of ileus and vomiting now requiring ventilatory support. Continue to titrate off as tolerated. Renal: End-stage renal disease on hemodialysis. Nephrology service care appreciated. Endo: No acute issues. GI: Ileus on the background of sepsis with bacteremia. Gastroenterology service care appreciated. Also around gastric thickening, may require outpatient EGD. ID: Gram-positive cocci bacteremia, continues on vancomycin. Heme/Onc: No acute issues. Psych: No acute issues. Miscellaneous: No acute issues. Prophylaxis: Heparin Diet: NPO Critical care time spent: 45 minutes Quality Stroke Does the patient have a stroke diagnosis?: No VTE Prior VTE?: No VTE Risk Level:: Medical - moderate - high VTE Device Contraindication: N/A - Device Ordered VTE Drug Contraindication: N/A - Med Ordered
--- NOTE | 2022-02-12 15:28 | MHC.CM.PN ---
Pt in ICU and intubated: Call placed to pt's HCP/ Mitra who suggested I call [facility], pt's dtr, for information. 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 Pt [facility] but has a hx of only completing partial treatments if any. He is very stubborn Pt uses a walker and/or w/c and [facility] provides transportation. Pt will likely return to home with existing services. Per [facility], pt had been to [facility] in the past and left AMA. He also has refused VNA services many times [facility] can transport pt to home when he is medically ready to d/c. CM to follow. IMM in chart, HCP on file, vax x 3
[2022-02-12] MEDS: Sodium Bicarbonate 8.4% 50 MEQ/50 ML SYRINGE IVPUSH (15:39)
--- NOTE | 2022-02-12 18:00 | ECG_ITS ---
Test Reason : arrhythmia Blood Pressure : / mmHG Vent. Rate : 071 BPM Atrial Rate : 000 BPM P-R Int : 000 ms QRS Dur : 090 ms QT Int : 400 ms P-R-T Axes : 000 -30 080 degrees QTc Int : 434 ms Atrial fibrillation Left axis deviation Septal infarct , age undetermined Abnormal ECG When compared with ECG of 11-FEB-2022 04:45, Atrial fibrillation has replaced Sinus rhythm ST now depressed in Anterolateral leads Nonspecific T wave abnormality now evident in Lateral leads Referred By: Ishmael Liriano Electronically Signed By:J Luis Wells
[2022-02-12] MEDS: vancomycin HCL 1,000 MG in 0.9 % Sodium Chloride 250 ML 270 MG IV (19:11)
--- NOTE | 2022-02-12 19:34 | PC.NURSE ---
levo drip titrated per policy. safety and fall precautions maintained. md informed of abnormal tele rhythms. ECG obtained as ordered. otherwise no acute changes this evening after prev shift events.
[2022-02-13] VITALS (41 sets, daily range): BP systolic 95–159; BP diastolic 45–62; PULSE 64–86; RESP 18–20; TEMP 33.9–37.1; O2SAT 94–100; BMI 26.2
[2022-02-13] MEDS: 0.9 % Sodium Chloride Flush 3 ML SYRINGE IVFLUSH ×3 (00:42→14:15)
[2022-02-13 05:25] LABS: VBG Base Excess 2.3 mmol/L; VBG HCO3 27 mmol/L (22-26); VBG pCO2 42 mmHg; VBG pH 7.41 (7.32-7.43); VBG pO2 48 mmHg
[2022-02-13 05:35] LABS: Venous Blood Gas Refer to POC result
[2022-02-13 05:37] LABS: MANUAL DIFF FLAG NO
[2022-02-13 05:43] LABS: Basophils Absolute Auto 0.1 X10*3/uL (0.0-0.2); Basophils Percent Auto 0.2 % (0-2); Eosinophils Absolute Auto 0.2 X10*3/uL (0.0-0.4); Hematocrit 28.2 % (42.0-52.0); Imm Gran Abs Auto 0.66 X10*3/uL (0.00-0.03); Lymphocytes Absolute Auto 1.4 X10*3/uL (1.2-4.9); Lymphocytes Percent Auto 6.5 % (20-40); Mean Corpuscular HGB Conc 35.5 g/dl (31.0-36.0); Mean Corpuscular Hemoglobin 31.1 pg (27.0-33.0); Mean Corpuscular Volume 87.6 fL (80.0-98.0); Mean Platelet Volume 10.3 fL (9.4-12.4); Monocytes Absolute Auto 1.3 X10*3/uL (0.1-1.2); Monocytes Percent Auto 5.9 % (2-11); NRBC Pct Auto 0.8 /100WBC (0.0-0.2); Neutrophils Absolute Auto 18.1 x10*3/uL (2.0-8.3); Neutrophils Percent Auto 83.4 % (45-73); Platelet Count 111 X10*3/uL (160-400); Red Blood Count 3.22 X10*6/uL (4.60-5.80); Red Cell Distribution Width 16.3 % (11.0-16.0); White Blood Count 21.7 X10*3/uL (4.8-10.8)
[2022-02-13 06:16] LABS: Albumin Level 2.7 g/dL (3.5-5.0); Anion Gap 22 (12-20); Blood Urea Nitrogen 80 mg/dL (9-16); Calcium 9.7 mg/dL (8.4-10.2); Carbon Dioxide 26 mmol/L (22-29); Chloride 98 mmol/L (96-108); Creatinine Clr Calc Pharmacy 5.2; Estimated Glomerular Filt Rate 5; Glucose Random 81 mg/dL (60-115); Magnesium 2.4 mg/dL (1.6-2.6); Phosphorus 4.4 mg/dL (2.7-4.5); Potassium 4.1 mmol/L (3.3-5.1); Sodium 142 mmol/L (135-145)
[2022-02-13] MEDS: Pantoprazole Sodium 40 MG/10 ML VIAL IVPUSH ×2 (06:48→14:59)
[2022-02-13] MEDS: Piperacillin Sodium/Tazobactam 2.25 GM in 0.9 % Sodium Chloride 50 ML IV (08:18)
[2022-02-13] MEDS: Chlorhexidine Gluc Oral Rinse 15 ML MOUTHWASH BUCCAL ×3 (08:18→20:17)
[2022-02-13] MEDS: cefTRIAXone sodium 1 GM in 0.9 % Sodium Chloride 50 ML IV (09:01)
[2022-02-13] MEDS: Albumin Human 25 % 100 ML IV ×3 (09:01→20:11)
--- NOTE | 2022-02-13 11:40 | PM.CCPN ---
Subjective Subjective Date of Service: 02/13/22 Interval History: 71-year-old gentleman with underlying history of thoracotomy a for hydropneumothorax, seizure disorder, end-stage renal disease hemodialysis admitted on 02/11/2022 with alteration of mental status, vomiting, and shaking chills. On ER evaluation patient was noted to have leukocytosis with significant hypoxemia. He was started on broad-spectrum antibiotics and initially admitted to [facility]. Later the same day patient became hypotensive and more hypoxic requiring transfer to intensive care unit with intubation for acute hypoxic respiratory failure and initiation of vasopressor support. His blood cultures grew Streptococcus. No events overnight. Critical Care Time (minutes): 45 Physical Exam Vital Signs: Vital Signs: Last Vital Signs Temp 98.7 F 02/13/22 08:00 Pulse 77 02/13/22 11:00 Resp 18 02/13/22 11:00 BP 113/59 L 02/13/22 11:09 Pulse Ox 95 02/13/22 11:00 BMI result Body Mass Index 26.2 Const: General: no acute distress and other ( Sedated on ventilatory support, poor arousal with sedation vacation.) Eyes: Sclerae: sclerae normal Neck: Neck: Yes no lymphadenopathy, Yes trachea midline and Yes supple Resp: Auscultation: clear to auscultation bilaterally Cardio: Rate: regular rate Rhythm: regular rhythm Heart sounds: no gallops, no murmurs and no rubs GI: Palpation (GI): Soft to palpation and Other GI palpation findings present ( Nontender) Auscultation: normal bowel sounds Extrem: General: Yes no pedal edema, No clubbing and No cyanosis Objective Data Labs CBC & Chem 7: 02/13/22 05:15 02/13/22 05:15 Labs: Laboratory Results - last 24 hr 02/13/22 02/13/22 02/13/22 05:15 05:15 05:17 WBC 21.7 H RBC 3.22 L Hgb 10.0 L Hct 28.2 L MCV 87.6 MCH 31.1 MCHC 35.5 RDW 16.3 H Plt Count 111 L MPV 10.3 Immature Gran % (Auto) 3.0 H Neut % (Auto) 83.4 H Lymph % (Auto) 6.5 L [place] % (Auto) 5.9 Eos % (Auto) 1.0 Baso % (Auto) 0.2 Lymph # (Auto) 1.4 [place] # (Auto) 1.3 H Eos # (Auto) 0.2 Baso # (Auto) 0.1 Abs Immat Gran (auto) 0.66 H Absolute Neuts (auto) 18.1 H Absolute Nucleated RBC 0.180 H Nucleated RBC % (auto) 0.8 H VBG pH 7.41 VBG pCO2 42 VBG pO2 48 VBG HCO3 27 H VBG O2 Saturation 73.0 VBG Base Excess 2.3 Sodium 142 Potassium 4.1 Chloride 98 Carbon Dioxide 26 Anion Gap 22 H BUN 80 H Creatinine 9.85 H* Estim Creat Clear Calc 5.2 Estimated GFR 5 Random Glucose 81 Calcium 9.7 Phosphorus 4.4 Magnesium 2.4 Albumin 2.7 L Microbiology Microbiology Results: Microbiology 02/11/22 05:55 Blood - Venous Blood Culture - Final Strep agalactiae (Grp B) 02/11/22 05:54 Blood - Venous Blood Culture - Final Strep agalactiae (Grp B) Progress Note: A&P Assessment and plan (1) End-stage renal disease on hemodialysis: Status: Acute (2) Ileus: Status: Acute (3) Acute respiratory failure with hypoxia: Status: Acute (4) Gastric wall thickening: Status: Acute (5) Encephalopathy: Status: Acute (6) Streptococcal bacteremia: Status: Acute Plan Assessment: 71-year-old gentleman with underlying ESRD on hemodialysis admitted with Gram-positive bacteremia and acute hypoxic respiratory failure secondary to aspiration on the background of ileus Plan: Neuro: Encephalopathy, septic versus uremic, expect to improve with hemodialysis and improvement in bacteremia. Cardiac: Continue to titrate of pressors as tolerated. Underlying history of congestive heart failure. Pulmonary: Acute hypoxic respiratory failure secondary to aspiration of gastric content on the background of ileus and vomiting now requiring ventilatory support. Continue to titrate off as tolerated. Renal: End-stage renal disease on hemodialysis. Nephrology service care appreciated. Endo: No acute issues. GI: Ileus on the background of sepsis with bacteremia. Gastroenterology service care appreciated. Gastric thickening, may require outpatient EGD. ID: Streptococcali bacteremia, continues on ceftriaxone. Heme/Onc: No acute issues. Psych: No acute issues. Miscellaneous: No acute issues. Prophylaxis: Heparin Diet: tube feeds Critical care time spent: 45 minutes Quality Stroke Does the patient have a stroke diagnosis?: No VTE Prior VTE?: No VTE Risk Level:: Medical - moderate - high VTE Device Contraindication: N/A - Device Ordered VTE Drug Contraindication: N/A - Med Ordered
[2022-02-13] MEDS: Heparin Sodium,Porcine 5,000 UNIT/ML VIAL 5000 UNIT SUBCUT ×2 (12:52→19:48)
[2022-02-14] VITALS (33 sets, daily range): BP systolic 92–127; BP diastolic 44–67; PULSE 54–91; RESP 9–25; TEMP 34.1–37.9; O2SAT 94–978; BMI 28.2
[2022-02-14] MEDS: 0.9 % Sodium Chloride Flush 3 ML SYRINGE IVFLUSH ×3 (00:24→15:30)
[2022-02-14] MEDS: Albumin Human 25 % 100 ML IV ×4 (02:29→20:21)
[2022-02-14] MEDS: Heparin Sodium,Porcine 5,000 UNIT/ML VIAL 5000 UNIT SUBCUT ×3 (04:35→19:41)
--- NOTE | 2022-02-14 04:49 | PC.NURSE ---
ASSUMED CARE OF PT AT 1900. PT ON AC VENT SETTINGS. HAD A COUPLE EPISODES OF DESATURATION LOW 82%. SUCTIONED FOR MOD AMOUNT OF BROWN SPUTUM. WAS ON 70% FIO2 AND WAS INCREASED TO 80% AND CURRENTLY 100% FIO2. RONAL PAC AT BEDSIDE AND ORDERED FENTANYL 50 MG IV FOR RESP RATE UP TO 32. GOOD EFFECT NOTED.
[2022-02-14 05:27] LABS: VBG Base Excess -0.4 mmol/L; VBG HCO3 24 mmol/L (22-26); VBG pCO2 37 mmHg; VBG pO2 49 mmHg
[2022-02-14 05:32] LABS: MANUAL DIFF FLAG NO
[2022-02-14] MEDS: Pantoprazole Sodium 40 MG/10 ML VIAL IVPUSH ×2 (05:38→15:30)
[2022-02-14 05:43] LABS: Basophils Percent Auto 0.2 % (0-2); Eosinophils Absolute Auto 0.4 X10*3/uL (0.0-0.4); Eosinophils Percent Auto 2.8 % (0-4); Hematocrit 24.1 % (42.0-52.0); Hemoglobin 8.3 g/dl (14.0-18.0); Imm Gran Abs Auto 0.19 X10*3/uL (0.00-0.03); Imm Gran Pct Auto 1.5 % (0.0-0.4); Lymphocytes Absolute Auto 1.2 X10*3/uL (1.2-4.9); Lymphocytes Percent Auto 9.7 % (20-40); Mean Corpuscular HGB Conc 34.4 g/dl (31.0-36.0); Mean Corpuscular Hemoglobin 30.6 pg (27.0-33.0); Mean Corpuscular Volume 88.9 fL (80.0-98.0); Mean Platelet Volume 10.3 fL (9.4-12.4); Monocytes Absolute Auto 0.8 X10*3/uL (0.1-1.2); Monocytes Percent Auto 6.3 % (2-11); NRBC Pct Auto 0.4 /100WBC (0.0-0.2); Neutrophils Absolute Auto 9.9 x10*3/uL (2.0-8.3); Neutrophils Percent Auto 79.5 % (45-73); Platelet Count 101 X10*3/uL (160-400); Red Blood Count 2.71 X10*6/uL (4.60-5.80); Red Cell Distribution Width 16.4 % (11.0-16.0); White Blood Count 12.5 X10*3/uL (4.8-10.8)
[2022-02-14 06:08] LABS: Albumin Level 3.3 g/dL (3.5-5.0); Anion Gap 25 (12-20); Blood Urea Nitrogen 96 mg/dL (9-16); Calcium 9.9 mg/dL (8.4-10.2); Carbon Dioxide 24 mmol/L (22-29); Chloride 100 mmol/L (96-108); Creatinine Clr Calc Pharmacy 5.2; Estimated Glomerular Filt Rate 5; Glucose Random 66 mg/dL (60-115); Magnesium 2.8 mg/dL (1.6-2.6); Phosphorus 4.6 mg/dL (2.7-4.5); Potassium 4.5 mmol/L (3.3-5.1); Sodium 144 mmol/L (135-145)
[2022-02-14] MEDS: cefTRIAXone sodium 1 GM in 0.9 % Sodium Chloride 50 ML IV (07:47)
[2022-02-14] MEDS: Chlorhexidine Gluc Oral Rinse 15 ML MOUTHWASH BUCCAL ×3 (07:47→20:22)
[2022-02-14 09:03] LABS: Venous Blood Gas Refer to POC result
--- NOTE | 2022-02-14 10:14 | PM.CCPN ---
Subjective Subjective Date of Service: 02/14/22 Interval History: ICU day 4 for streptococcal bacteremia, yearly use, pulmonary aspiration, acute hypoxic respiratory failure, encephalopathy. 71-year-old gentleman with underlying history of thoracotomy a for hydropneumothorax, seizure disorder, end-stage renal disease hemodialysis admitted on 02/11/2022 with alteration of mental status, vomiting, and shaking chills. On ER evaluation patient was noted to have leukocytosis with significant hypoxemia. He was started on broad-spectrum antibiotics and initially admitted to [facility]. Later the same day patient became hypotensive and more hypoxic requiring transfer to intensive care unit with intubation for acute hypoxic respiratory failure and initiation of vasopressor support. His blood cultures grew Streptococcus. No events overnight. Pressor requirements slowly improving. Critical Care Time (minutes): 45 Physical Exam Vital Signs: Vital Signs: Last Vital Signs Temp 98.5 F 02/14/22 08:00 Pulse 54 02/14/22 10:00 Resp 19 02/14/22 10:00 BP 92/51 L 02/14/22 10:00 Pulse Ox 97 02/14/22 10:00 BMI result Body Mass Index 28.2 Const: General: no acute distress Eyes: Sclerae: sclerae normal Neck: Neck: Yes no lymphadenopathy, Yes trachea midline and Yes supple Resp: Auscultation: clear to auscultation bilaterally Cardio: Rate: regular rate Rhythm: regular rhythm Heart sounds: no gallops, no murmurs and no rubs GI: Palpation (GI): Soft to palpation and Other GI palpation findings present ( Nontender) Auscultation: normal bowel sounds Extrem: General: No clubbing, No cyanosis and Yes edema ( Trace bilateral) Objective Data Labs CBC & Chem 7: 02/14/22 05:20 02/14/22 05:20 Labs: Laboratory Results - last 24 hr 02/14/22 02/14/22 02/14/22 05:19 05:20 05:20 WBC 12.5 H RBC 2.71 L Hgb 8.3 L Hct 24.1 L MCV 88.9 MCH 30.6 MCHC 34.4 RDW 16.4 H Plt Count 101 L MPV 10.3 Immature Gran % (Auto) 1.5 H Neut % (Auto) 79.5 H Lymph % (Auto) 9.7 L [place] % (Auto) 6.3 Eos % (Auto) 2.8 Baso % (Auto) 0.2 Lymph # (Auto) 1.2 [place] # (Auto) 0.8 Eos # (Auto) 0.4 Baso # (Auto) 0.0 Abs Immat Gran (auto) 0.19 H Absolute Neuts (auto) 9.9 H Absolute Nucleated RBC 0.050 H Nucleated RBC % (auto) 0.4 H VBG pH 7.40 VBG pCO2 37 VBG pO2 49 VBG HCO3 24 VBG O2 Saturation 75.0 VBG Base Excess -0.4 Sodium 144 Potassium 4.5 Chloride 100 Carbon Dioxide 24 Anion Gap 25 H BUN 96 H Creatinine 10.83 H* Estim Creat Clear Calc 5.2 Estimated GFR 5 Random Glucose 66 Calcium 9.9 Phosphorus 4.6 H Magnesium 2.8 H Albumin 3.3 L D Microbiology Microbiology Results: Microbiology 02/11/22 05:55 Blood - Venous Blood Culture - Final Strep agalactiae (Grp B) 02/11/22 05:54 Blood - Venous Blood Culture - Final Strep agalactiae (Grp B) Progress Note: A&P Assessment and plan (1) Streptococcal bacteremia: Status: Acute (2) End-stage renal disease on hemodialysis: Status: Acute (3) Ileus: Status: Acute (4) Acute respiratory failure with hypoxia: Status: Acute (5) Gastric wall thickening: Status: Acute (6) Encephalopathy: Status: Acute Plan Assessment: 71-year-old gentleman with underlying ESRD on hemodialysis admitted with streptococcal bacteremia and acute hypoxic respiratory failure secondary to aspiration on the background of ileus Plan: Neuro: Encephalopathy, septic versus uremic, expect to improve with hemodialysis and improvement in bacteremia. Cardiac: Continue to titrate off pressors as tolerated. Underlying history of congestive heart failure. Pulmonary: Acute hypoxic respiratory failure secondary to aspiration of gastric content on the background of ileus and vomiting now requiring ventilatory support. Continue to titrate off as tolerated. Renal: End-stage renal disease on hemodialysis. Nephrology service care appreciated. Endo: No acute issues. GI: Ileus on the background of sepsis with bacteremia. Gastroenterology service care appreciated. Gastric thickening, may require outpatient EGD. ID: Streptococcali bacteremia, continues on ceftriaxone. Heme/Onc: No acute issues. Psych: No acute issues. Miscellaneous: No acute issues. Prophylaxis: Heparin Diet: tube feeds Critical care time spent: 45 minutes Quality Stroke Does the patient have a stroke diagnosis?: No VTE Prior VTE?: No VTE Risk Level:: Medical - moderate - high VTE Device Contraindication: N/A - Device Ordered VTE Drug Contraindication: N/A - Med Ordered
[2022-02-15] VITALS (45 sets, daily range): BP systolic 78–153; BP diastolic 40–78; PULSE 52–77; RESP 16–25; TEMP 34–38.5; O2SAT 92–100; BMI 28.2
[2022-02-15] MEDS: 0.9 % Sodium Chloride Flush 3 ML SYRINGE IVFLUSH ×4 (00:36→21:41)
[2022-02-15] MEDS: Albumin Human 25 % 100 ML IV (02:58)
[2022-02-15] MEDS: Heparin Sodium,Porcine 5,000 UNIT/ML VIAL 5000 UNIT SUBCUT ×2 (03:01→20:05)
[2022-02-15 05:29] LABS: VBG Base Excess -3.3 mmol/L; VBG HCO3 20 mmol/L (22-26); VBG pCO2 32 mmHg; VBG pH 7.41 (7.32-7.43); VBG pO2 51 mmHg
[2022-02-15] MEDS: Pantoprazole Sodium 40 MG/10 ML VIAL IVPUSH (05:43)
[2022-02-15 05:49] LABS: MANUAL DIFF FLAG NO
[2022-02-15 05:57] LABS: Basophils Percent Auto 0.4 % (0-2); Eosinophils Absolute Auto 0.4 X10*3/uL (0.0-0.4); Eosinophils Percent Auto 3.4 % (0-4); Hematocrit 23.2 % (42.0-52.0); Imm Gran Abs Auto 0.19 X10*3/uL (0.00-0.03); Imm Gran Pct Auto 1.8 % (0.0-0.4); Lymphocytes Absolute Auto 1.3 X10*3/uL (1.2-4.9); Lymphocytes Percent Auto 11.9 % (20-40); Mean Corpuscular HGB Conc 34.5 g/dl (31.0-36.0); Mean Corpuscular Hemoglobin 30.9 pg (27.0-33.0); Mean Corpuscular Volume 89.6 fL (80.0-98.0); Mean Platelet Volume 10.4 fL (9.4-12.4); Monocytes Absolute Auto 0.7 X10*3/uL (0.1-1.2); Monocytes Percent Auto 6.6 % (2-11); NRBC Pct Auto 0.4 /100WBC (0.0-0.2); Neutrophils Absolute Auto 8.2 x10*3/uL (2.0-8.3); Neutrophils Percent Auto 75.9 % (45-73); Platelet Count 117 X10*3/uL (160-400); Red Blood Count 2.59 X10*6/uL (4.60-5.80); Red Cell Distribution Width 16.4 % (11.0-16.0); White Blood Count 10.8 X10*3/uL (4.8-10.8)
[2022-02-15 06:00] LABS: Lactic Acid 0.9 mmol/L (0.5-2.0); Venous Blood Gas Refer to POC result
[2022-02-15 06:19] LABS: Alanine Aminotransferase 20 U/L (0-40); Albumin Level 3.8 g/dL (3.5-5.0); Alkaline Phosphatase 221 U/L (39-117); Anion Gap 28 (12-20); Aspartate Amino Transferase 35 U/L (5-37); Bilirubin Total 3.1 mg/dL (0.0-1.0); Blood Urea Nitrogen 113 mg/dL (9-16); Calcium 10.3 mg/dL (8.4-10.2); Carbon Dioxide 21 mmol/L (22-29); Chloride 100 mmol/L (96-108); Creatinine Clr Calc Pharmacy 4.6; Estimated Glomerular Filt Rate 4; Glucose Random 72 mg/dL (60-115); Magnesium 2.7 mg/dL (1.6-2.6); Phosphorus 5.7 mg/dL (2.7-4.5); Sodium 144 mmol/L (135-145); Total Protein 6.3 g/dL (6.5-8.0)
[2022-02-15] MEDS: Chlorhexidine Gluc Oral Rinse 15 ML MOUTHWASH BUCCAL ×3 (08:28→20:06)
[2022-02-15] MEDS: cefTRIAXone sodium 1 GM in 0.9 % Sodium Chloride 50 ML IV ×2 (08:28→17:13)
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
[2022-02-15] MEDS: Aspirin 81 MG TAB.CHEW OG-TUBE (17:13)
[2022-02-16] VITALS (35 sets, daily range): BP systolic 80–143; BP diastolic 42–67; PULSE 63–80; RESP 11–29; TEMP 34–37.7; O2SAT 94–99; BMI 27.8
[2022-02-16] MEDS: fentaNYL citrate/PF 100 MCG/2 ML VIAL 50 MCG IVPUSH ×3 (01:25→05:29)
[2022-02-16] MEDS: Heparin Sodium,Porcine 5,000 UNIT/ML VIAL 5000 UNIT SUBCUT ×2 (03:20→15:23)
[2022-02-16 05:24] LABS: VBG Base Excess -6.8 mmol/L; VBG HCO3 15 mmol/L (22-26); VBG pCO2 22 mmHg; VBG pH 7.44 (7.32-7.43); VBG pO2 42 mmHg
[2022-02-16 05:30] LABS: Hematocrit 25.9 % (42.0-52.0); Hemoglobin 8.9 g/dl (14.0-18.0); Mean Corpuscular HGB Conc 34.4 g/dl (31.0-36.0); Mean Corpuscular Volume 90.2 fL (80.0-98.0); Mean Platelet Volume 10.2 fL (9.4-12.4); NRBC Pct Auto 0.6 /100WBC (0.0-0.2); Platelet Count 143 X10*3/uL (160-400); Red Blood Count 2.87 X10*6/uL (4.60-5.80); Red Cell Distribution Width 16.9 % (11.0-16.0); White Blood Count 8.9 X10*3/uL (4.8-10.8)
[2022-02-16 05:33] LABS: Venous Blood Gas Refer to POC result
[2022-02-16 05:54] LABS: Albumin Level 3.4 g/dL (3.5-5.0); Anion Gap 23 (12-20); Blood Urea Nitrogen 52 mg/dL (9-16); Calcium 10.2 mg/dL (8.4-10.2); Carbon Dioxide 17 mmol/L (22-29); Chloride 100 mmol/L (96-108); Creatinine Clr Calc Pharmacy 9.5; Estimated Glomerular Filt Rate 9; Glucose Random 71 mg/dL (60-115); Magnesium 2.3 mg/dL (1.6-2.6); Potassium 4.4 mmol/L (3.3-5.1); Sodium 136 mmol/L (135-145)
[2022-02-16 05:58] LABS: B Type Natriuretic Peptide 2464 pg/mL (<100)
--- NOTE | 2022-02-16 07:00 | CA_ITS ---
Transthoracic Echocardiogram Patient (Last, First, Middle): Samuel Greenfield, Gender: Male Date of : 1950 Age: 71 Procedure Date: 02/16/2022 Procedure Type: Transthoracic Echocardiogram Location: ICU Height: 157.48 cm Weight: 68.95 kg BSA: 1.70 m2 Heart Rate: bpm BP: 109 / 51 mmHg Medical Cost Consultant: TRAM Referring MD: Ganga Agustin MD [employer] Layout: Stephen Vegas MD Symptoms: Acute respiratory failure, refractory hypotension. Study Quality: Fair ECG Rhythm: Atrial Fibrillation Conclusions: - 1. Normal LV systolic function 2. Possible vegetation on the posterior mitral leaflet with at least moderate mitral regurgitation 3. [id number] tricuspid regurgitation with upper limits of normal RV systolic pressure 4. No gross pericardial effusion Findings Left Ventricle Normal left ventricular size, thickness, and systolic function. The visually estimated ejection fraction is between 60-65%. Diastolic function is indeterminate on the basis of available data. Right Ventricle Normal right ventricular cavity size and systolic function. Atria The left atrium is likely dilated. There is no evidence of interatrial shunt. The right atrium is normal in size. Aortic Valve Normal aortic valve structure and function. There is no aortic valve stenosis. There is no aortic valve regurgitation. Mitral Valve There is mild posterior mitral leaflet thickening. There is moderate mitral valve regurgitation. There is no mitral valve stenosis. There is a small mobile mass on the posterior mitral valve leaflet. The mass is consistent with possible vegetation. Pulmonic Valve The pulmonic valve is likely normal. There is trace to mild pulmonic valve regurgitation. Tricuspid Valve Normal tricuspid valve structure. There is mild to moderate tricuspid valve regurgitation. There is no evidence of pulmonary hypertension. Great Vessels All visible segments of the aorta are normal in size. The pulmonary artery was not well visualized. Venous The inferior vena cava is normal in size and collapses greater than 50% with inspiration. Pericardium/Pleural There is no evidence of pericardial effusion. Recommendations, Care & Conclusions Recommend a ANNIE. Measurements 2D Linear Measurements IVSd: 1.17 0.6-0.9/0.6-1.0 cm LVIDd: 5.32 3.9-5.3/4.2-5.9 cm LVIDd Index: 3.13 2.4-3.2/2.2-3.1 cm/m2 LVIDs: 3.62 2.0-3.6 cm LVPWd: 0.87 0.7-1.1 cm Ao Root: 3.10 2.1-3.5 cm LA Diam: 3.70 2.7-3.8/3.0-4.0 cm LAIDs Index: 2.18 1.5-2.3 cm/m2 LV Mass: 257.88 67-162/88-224 g LV Mass Index: 151.69 43-95/49-115 g/m2 LVOT Diam: 2.30 3.0+(-)1.3 cm 2D Systolic Function EF 4C: 59.20 >55% Aortic Valve AoV Pk Best: 1.34 AoV Mn Best: 0.89 AoV VTI: 0.17 AoV Pk Grad: 7.00 Aov Mn Grad: 4.00 JAHAIRA Cont.VTI: 4.13 LVOT LVOT Pk Best: 1.16 LVOT Mn Best: 0.75 LVOT VTI: 0.17 LVOT Pk Grad: 5.00 LVOT Mn Grad: 3.00 LVOT Diam: 2.30 LVOT Area: 4.15 Tricuspid Valve TR Pk Best: 2.96 TR Pk Grad: 35.00 RA Press: 3.00 RVSP: 38.00 Great Vessels Aorta Ao Root-2D: 3.10 2.0-3.7 cm Ao Asc: 3.50 2.1-3.4 cm Pulmonary Valve PV Pk Best: 1.12 Peak PV Grad: 5.00 Updated in Other Vendor System with Status of Final Stephen Vegas MD electronically signed on 02/16/2022 11:54:55 AM with status of Final
--- NOTE | 2022-02-16 08:33 | PC.NURSE ---
7p-9a shift eval: Patient remains intubated on ACVC vent settings. Patient has been off sedation since 02/12 @ 0830. Patient opening eyes, but not tracking or making purposeful movement. Temp Max 99.9. Blood and sputum cultures pending from 02/15. BP - titrated Levo down - goal map >65 - see drug titration for details. Large amt blood streaked / clots sputum via in-line suctioning. [facility] made aware - order to continue heparin, but hold aspirin for morning meds. Patient becoming tachypneic at times, RR up to 30. Coy [facility] updated - did not want to restart propofol, but ordered PRN fentanyl 50mcg IVP. Given x3 @ 025, 0427, and 0529 - [facility] ordered to give it before med was due at 0529 r/t RR staying in high 20's. Medication works for about an hour and as long stimulation decreased as well. Patient care causes increase in RR. Copious amt clear oral secretions - oral care done frequently. Repos Q2H. Patient had small stool - smear - brown loose, during 4am repos. - alyse care done. Full bath given this morning after 7:30am.
--- NOTE | 2022-02-16 08:51 | MHC.CLN ---
F/U PT REMAINS INTUBATED RECOMMEND NEPRO AT MAX GOAL RATE 40ML/HR WITH 240CC FREE WATER FLUSHES Q 8 HRS TO PROVIDE 1728KCALS (29.8KCALS/KG BASED ON CMW), 78G PROTEIN (1.3G/KG), 1418CC TOTAL WATER FROM FORMULA AND FLUSHES (24ML/KG) MONITOR TOLERANCE, RESIDUALS AND LYTES PT WITH INCREASED NUTRITION NEEDS R/T PRESSURE INJURY WILL MONITOR PROTEIN INTAKE CLOSELY AND ADJUST ABLE
[2022-02-16] MEDS: cefTRIAXone sodium 2 GM in 0.9 % Sodium Chloride 50 ML IV (09:32)
[2022-02-16] MEDS: Chlorhexidine Gluc Oral Rinse 15 ML MOUTHWASH BUCCAL ×2 (09:36→15:23)
--- NOTE | 2022-02-16 09:36 | MHC.CM.PN ---
Patient continues in ICU, Case Management will follow for discharge planning needs as appropriate.
--- NOTE | 2022-02-16 10:07 | P.CDIC_ITS ---
CDI Concurrent Query Documentation Clarification: PHYSICIAN'S DOCUMENTATION REQUEST Date of Query: 02/16/22 1007 Patient Name: Samuel Greenfield Admit Date: 02/11/22 Dear Doctor, A review of the medical record indicates additional documentation may be indicated. Please review below and update the documentation accordingly. Clinical Indicators: Risk Factors/Clinical Indicators/Treatments Wound care notes 02/15 - Pressure injury Stage II coccyx Barrier cream applied, dressing clean dry and intact. Based on the above, could you please provide, in the Progress Notes, further information regarding the ulcer/wound: * Location of the ulcer/wound, including laterality * If a pressure ulcer, please also include the stage* of the ulcer: * Stage 1 - Skin intact, non-blanchable redness * Stage 2 - Partial thickness loss of dermis, includes intact or open blister * Stage 3 - Full thickness tissue not including bone, tendon, or muscle * Other * Unable to determine *Source: National Pressure Ulcer Advisory Panel (NPUAP) Use of terms such as suspected, likely, concern for, or probable (associated with a specific diagnosis that is being evaluated, monitored, or treated as if it exists) are acceptable and can be coded in the inpatient setting, when documented at the time of discharge. Thank you, Conchita De Guzman [facility], CDIS Extension: [phone] Please use your independent medical judgment in providing your response. THIS QUERY IS PART OF THE PERMANENT MEDICAL RECORD Provider Response: Other Other Diagnosis: Stage II pressure wound on coccyx.
--- NOTE | 2022-02-16 10:11 | PC.NURSE ---
Nepro started at 10ml/hr per rder. Prior to starting feeds NGT was placed to suction with only about 10ml of green stomach contents out. Pt remains off of sedation at this time with no purposeful movements and inability to follow commands at this time.
--- NOTE | 2022-02-16 15:41 | PC.NURSE ---
Addendum entered by Judd Schmitt RN 02/16/22 17:54: pt to be xfer to [facility]. report given to MM3 RN. Addendum entered by Judd Schmitt RN 02/16/22 16:50: ANNIE completed with stephanie, bill RN and 2 MDs at bedside. MD pushed 70mg Propofol, remaining was wasted. Levo drip titrated per protocol. Original Note: isolation precautions maintained. dialysis completed. + thrill & brui. pt repo'ed q2. safety and fall precautions maintained.
--- NOTE | 2022-02-16 16:00 | CA_ITS ---
Transesophageal Echocardiogram Patient (Last, First, Middle): Samuel Greenfield, Gender: Male Date of : 1950 Age: 71 Procedure Date: 02/16/2022 Procedure Type: Transesophageal Echocardiogram Location: ICU Height: 157.48 cm Weight: 68.95 kg BSA: 1.70 m2 Heart Rate: bpm BP: 100 / 60 mmHg Outsole Compressor: KAYLIE Referring MD: Ganga Agustin Oceanologist: Stephen Vegas MD Symptoms: To evaluate for mitral valve endocarditis Conclusion: ??? 1. Mobile masses attached to the atrial surface of the anterior leaflet and posterior leaflet of the mitral valve consistent with vegetation with perforation of the posterior leaflet with moderately severe mitral regurgitation 2. Normal LV systolic function 3. No intracardiac masses or thrombi 4. No intracardiac shunting 5. At least moderate atherosclerotic changes noted in the descending and arch of the aorta 6. No gross pericardial effusion Findings Procedure Information Consent was obtained prior to the procedure. Pre ANNIE oral cavity was checked and revealed mild overcrowding. The adult 3D probe was passed with no difficulty. Left Ventricle Normal left ventricular size, thickness, and systolic function. The visually estimated ejection fraction is between 60-65%. E/E prime ratio is between 8 and 15 consistent with indeterminate filling pressures. Right Ventricle Normal right ventricular cavity size and systolic function. Atria The left atrium is moderately dilated. There is no evidence of interatrial shunt by color Doppler. There is no evidence of a patent foramen ovale. Left atrium was identified in multiple view. There are no clots or masses and left atrium and no significant smoke formation. The left upper, right upper and right lower pulmonary vein drain normally into the left atrium. The left atrial appendage was identified in multiple views under no clots or smoke formation seen with the left atrial appendage. The right atrium is normal in size. Right atrium was identified in multiple views. The IVC and SVC drain normally into the right atrium. The SVC is normal size with good collapsibility consistent with normal right atrial pressures. There are no significant masses or clots seen with the right atrium. Aortic Valve Normal aortic valve structure and function. There is no evidence of thickening of the aortic valve. There is no aortic valve stenosis. There is no evidence of a mass on the aortic valve. There is trace (trivial) aortic valve regurgitation. The inter valvular fibrosa shows no significant thickening suggestive abscess Mitral Valve There is mild anterior and posterior mitral leaflet thickening. a large mobile mass is noted attached to the atrial surface of the anterior mitral leaflet measuring 0.8 x 0.5 cm, consistent with a vegetation. Another small to moderate size mass is attached on the atrial surface towards the base of the posterior leaflet. this is also consistent with vegetation. Right around this mass there appears to be disruption of the mitral leaflet consistent with perforated posterior leaflet with dense jet of moderately severe mitral regurgitation noted. Calculated regurgitant volume is 58 mL. Pulmonic Valve The pulmonic valve is normal. There is no mass noted on the pulmonic valve. There is trace pulmonic valve regurgitation. Tricuspid Valve Normal tricuspid valve structure. There is mild to moderate tricuspid valve regurgitation. There is no evidence of a mass on the tricuspid valve. The right ventricular systolic pressure is normal. Great Vessels All visible segments of the aorta are normal in size. Moderate plaque is seen in the arch and descending thoracic aorta. The visualized portions of the pulmonary artery and branches are normal. Venous The inferior vena cava is normal in size and collapses greater than 50% with inspiration. Pericardium/Pleural There is no evidence of pericardial effusion. Measurements Mitral Valve MV Pk E: 1.23 MV Decel Time: 198.00 E'Lateral: 9.47 E'Medial: 8.23 E/E' Med: 14.90 E/E' Lat: 13.00 PHT: 58.00 MVA PHT: 3.79 Decel [place]: 6.19 MR Vol - PW Dopp: 57.72 MR VTI: 1.11 MR ERO: 52.00 MR Alias Best: 0.31 MR RAD: 1.10 Diastolic Function MV Pk E: 1.23 E'Medial: 8.23 E/E' Med: 14.90 E' Laterial: 9.47 E/E' Lat: 13.00 Updated by Stephen Vegas on 06:02 PM with Status of Final Stephen Vegas MD electronically signed on 02/16/2022 6:02:53 PM with status of Final
[2022-02-16] MEDS: propofoL 200 MG/20 ML VIAL 70 MG IVPUSH (16:55)
--- NOTE | 2022-02-16 17:21 | P.PNNP_ITS ---
Subjective Subjective Date of Service: 02/16/22 Principal diagnosis: ESRD patient hypoxic and respiratory failure aspiration pneumonia. Interval history: Mr Greenfield continues in critical condition intubated sedated on mechanical ventilation. On vasopressor support. Last dialyzed on Tuesday unable to tolerate treatment due to unstable hemodynamics. Physical Exam Vital Signs: Vital Signs: Last Vital Signs Temp 99.4 F 02/16/22 12:00 Pulse 73 02/16/22 17:00 Resp 19 02/16/22 17:00 BP 115/52 L 02/16/22 17:13 Pulse Ox 96 02/16/22 17:00 BMI result Body Mass Index 27.8 Intubated sedated on mechanical ventilation Decreased breath sounds bilaterally. S1-S2. Abdomen soft positive bowel sounds Extremities no lower extremity edema, left upper extremity AV fistula positive thrill and a bruit left upper arm edema noted. No erythema or palpable collection in the fistula area. Neurologic comatose. Source Sputum Suctioned Procedure/Result Gram Stain - Final Sputum Culture - Preliminary ???Culture in progress. 02/15/22 05:35 Micro Blood Specimen Resulted Source Blood Venous Procedure/Result Blood Culture - Preliminary ???No growth after 24 hours. 02/15/22 05:34 Micro Blood Specimen Resulted Source Blood Venous Procedure/Result Blood Culture - Preliminary ???No growth after 24 hours. 02/11/22 05:55 Micro Blood Specimen Complete Source Blood Venous Procedure/Result Blood Culture - Final ???Strep agalactiae (Grp B) 02/11/22 05:54 Micro Blood Specimen Complete Source Blood Venous Procedure/Result Blood Culture - Final Objective Data Labs CBC & Chem 7: 02/16/22 05:20 02/16/22 05:20 Labs: Laboratory Results - last 24 hr 02/16/22 02/16/22 02/16/22 05:17 05:20 05:20 WBC 8.9 RBC 2.87 L Hgb 8.9 L Hct 25.9 L MCV 90.2 MCH 31.0 MCHC 34.4 RDW 16.9 H Plt Count 143 L MPV 10.2 Absolute Nucleated RBC 0.050 H Nucleated RBC % (auto) 0.6 H VBG pH 7.44 H VBG pCO2 22 VBG pO2 42 VBG HCO3 15 L VBG O2 Saturation 67.0 VBG Base Excess -6.8 Sodium 136 Potassium 4.4 Chloride 100 Carbon Dioxide 17 L Anion Gap 23 H BUN 52 H D Creatinine 5.96 H* Estim Creat Clear Calc 9.5 Estimated GFR 9 Random Glucose 71 Calcium 10.2 Phosphorus 6.0 H Magnesium 2.3 B-Natriuretic Peptide Albumin 3.4 L 02/16/22 05:20 WBC RBC Hgb Hct MCV MCH MCHC RDW Plt Count MPV Absolute Nucleated RBC Nucleated RBC % (auto) VBG pH VBG pCO2 VBG pO2 VBG HCO3 VBG O2 Saturation VBG Base Excess Sodium Potassium Chloride Carbon Dioxide Anion Gap BUN Creatinine Estim Creat Clear Calc Estimated GFR Random Glucose Calcium Phosphorus Magnesium B-Natriuretic Peptide 2464 H Albumin Microbiology Microbiology Results: Microbiology 02/15/22 05:35 Blood - Venous Blood Culture - Preliminary No growth after 24 hours. 02/15/22 05:34 Blood - Venous Blood Culture - Preliminary No growth after 24 hours. 02/15/22 10:42 Sputum - Suctioned Gram Stain - Final 02/15/22 10:42 Sputum - Suctioned Sputum Culture - Preliminary Culture in progress. 02/11/22 05:55 Blood - Venous Blood Culture - Final Strep agalactiae (Grp B) 02/11/22 05:54 Blood - Venous Blood Culture - Final Strep agalactiae (Grp B) Procedures Date of Service Date of Service: 02/16/22 Assessment & Plan Assessment and plan (1) End stage renal disease: Status: Acute (2) Streptococcal bacteremia: Status: Acute (3) Acute respiratory failure with hypoxia: Status: Acute Plan Mr Greenfield is a very pleasant 71-year-old gentleman with medical history of ESRD on intermittent hemodialysis on Tuesday at the [facility] under my care, who has been admitted to [facility] for change in mental status concern for seizure disorder found in septic shock. ESRD. Last dialyzed on February 12, at the present time electrolytes are stable given his ESRD status and encephalopathy we will go ahead and dialyze today, discussed with ICU team who agrees, will follow closely on a daily basis. Today we will hold off on removing any fluid as the patient hemodynamics remain tenuous, we will continue to uptitrate vasopressor support if need be during therapy. Reviewed medications which are appropriately dosed for ESRD status. Regarding septic shock follow-up blood cultures are negative, we will continue on antibiotics as per ICU guidance, consider infectious disease consultation for source evaluation not entirely clear AV fistula is the source,alyse AVF edema noted consider Doppler rule out DVT left upper extremity. Consider other potential sources including bowel/bone/dental etc. I will defer to ICU team. Continue to monitor labs as per routine in ICU, I signed out the case to Dr. Stone from renal transplant service/ [facility] who has nicely accepted to take over patient's renal care until ready for discharge to outpt dialysis unit. Thank you. Time Spent With Patient Time: Total time spent is greater than 50% in coordination of care (as documented) at patient's floor/unit and/or counseling patient: Progress Note: Quality Stroke Does the patient have a stroke diagnosis?: No
[2022-02-16] MEDS: 0.9 % Sodium Chloride 500 ML 999 ML IV (17:59)
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
== END 2022-02-16 19:46 | disposition short-term general hospital (02) | DRG 314 ==
LOC: HO.ED 06:22 → HO.EDOVER 09:23 → HO.ICU 17:52
PROVIDERS: Family Medicine; Internal Medicine Pulmonary Disease; Physician Assistant; Registered Nurse Community Health; Admitting Provider Anesthesiology; Emergency Provider Emergency Medicine; PCP Internal Medicine; Visit Provider Anesthesiology
DX: T82.7XXA Infection and inflammatory reaction due to other cardiac and vascular devices, implants and grafts, initial encounter (principal); A40.1 Sepsis due to streptococcus, group B; J69.0 Pneumonitis due to inhalation of food and vomit; J96.01 Acute respiratory failure with hypoxia; N18.6 End stage renal disease; I33.0 Acute and subacute infective endocarditis; G93.41 Metabolic encephalopathy; K56.7 Ileus, unspecified; I48.91 Unspecified atrial fibrillation; G40.909 Epilepsy, unspecified, not intractable, without status epilepticus; L89.152 Pressure ulcer of sacral region, stage 2; Z20.822 Contact with and (suspected) exposure to COVID-19; Z99.2 Dependence on renal dialysis; Z91.14 Patient's other noncompliance with medication regimen; Z91.15 Patient's noncompliance with renal dialysis; Z79.51 Long term (current) use of inhaled steroids; Z79.899 Other long term (current) drug therapy
CPT/HCPCS: 36415; 36600; 70450; 71045; 74018; 74177; 80048; 80053; 80202; 81001; 82040; 82550; 82803; 82947; 83605; 83735; 83880; 84100; 84484; 85007; 85025; 85027; 85610; 85730; 87040; 87070; 87077; 87147; 87186; 87205; 87502; 87635; 90999; 93005; 93306; 93312; 93971; 94002; 94003; 94799; 96365; 96367; 99285; J0696; J1953; J2370; J2543; J3010; J3370; P9047